=== PATIENT | male | born 1955 | race Caucasian/White ===

== ENCOUNTER 2016-10-06 20:39 | Inpatient (IN) | payer MEDICARE, BC ==
--- NOTE | 2016-10-06 21:33 | ED PDOC ---
Lower Extremity Pain/Injury Time Seen by Provider: 10/06/16 20:51 Chief Complaint (Nursing): Lower Extremity Problem/Injury Chief Complaint (Provider): fall, left foot pain History Per: Patient History/Exam Limitations: no limitations Onset/Duration Of Symptoms: Mins Current Symptoms Are (Timing): Still Present Severity: Moderate Additional History Per: Patient Additional Complaint(s): The pt is a 61yo male, brought to the ED for evaluation s/p falling and injuring his left foot [employer]. Pt reports he stood up too quickly out of a chair and while attempting to grab his walker, he felt light headed and fell on his left side. Pt denies any head trauma or loss of consciousness. reports he took vicodin after the fall and is denying any pain in the ED. Pt currently denying pain medications as well. He offers no additional medical complaints. - Ankle/Foot Description Of Injury: Fell Past Medical History Vital Signs: Last Vital Signs Temp 98.5 F 10/06/16 20:45 Pulse 56 L 10/06/16 20:45 Resp 16 10/06/16 20:45 BP 127/80 10/06/16 20:45 Pulse Ox 97 10/06/16 20:45 - Medical History PMH: Anxiety, Back Problems, Depression, HTN, Hypercholesterolemia - Surgical History Surgical History: Back Surgery - Family History Family History: States: Unknown Family Hx - Home Medications Home Medications: Ambulatory Orders Medication Instructions Recorded Atorvastatin [Lipitor] 20 mg PO DAILY tab 10/11/16 Chlorthalidone [Hygroton] 25 mg PO DAILY tab 10/11/16 Enoxaparin [Lovenox] 40 mg SC DAILY syr 10/11/16 FLUoxetine [Prozac] 20 mg PO 1600 cap 10/11/16 FLUoxetine [Prozac] 40 mg PO DAILY cap 10/11/16 Gabapentin [Neurontin] 800 mg PO 0000,0900,1600 cap 10/11/16 Metoprolol Tartrate [Lopressor] 100 mg PO 1600 tab 10/11/16 Metoprolol Tartrate [Lopressor] 200 mg PO DAILY tab 10/11/16 Mirtazapine [Remeron] 15 mg PO HS tab 10/11/16 Multimineral/Multivitamin 1 tab PO DAILY tab 10/11/16 [Therapeutic-M Tab] Pantoprazole [Protonix EC Tab] 40 mg PO DAILY ect 10/11/16 Valsartan [Diovan] 320 mg PO DAILY tab 10/11/16 amLODIPine [Norvasc] 10 mg PO 0000 tab 10/11/16 buPROPion SR [Wellbutrin] 100 mg PO 0900,1600 t12 10/11/16 cloNIDine [Catapres] 0.1 mg PO 0000,1600 tab 10/11/16 cloNIDine [Catapres] 0.2 mg PO DAILY tab 10/11/16 clonazePAM [Klonopin] 1 mg PO 0000,0900,1600 tab 10/11/16 hydrALAZINE [Apresoline] 50 mg PO 0000 tab 10/11/16 hydrALAZINE [Apresoline] 100 mg PO DAILY tab 10/11/16 oxyCODONE/Acetaminophen [Percocet 1 ea PO Q4 PRN #30 tab 10/11/16 5/325 mg Tab] tiZANidine [Zanaflex] 1 mg PO Q12 PRN tab 10/11/16 - Allergies Allergies/Adverse Reactions: Allergies Allergy/AdvReac Type Severity Reaction Status Date / Time No Known Allergies Allergy Verified 10/11/16 17:09 Review of Systems ROS Statement: Except As Marked, All Systems Reviewed And Found Negative Musculoskeletal: Positive for: Foot Pain (left) Neurological: Negative for: Headache Physical Exam - Reviewed Nursing Documentation Reviewed: Yes Vital Signs Reviewed: Yes - Physical Exam Appears: Positive for: Well, Non-toxic, No Acute Distress Head Exam: Positive for: ATRAUMATIC, NORMAL INSPECTION, NORMOCEPHALIC Skin: Positive for: Normal Color, Warm, DRY Eye Exam: Positive for: Normal appearance Neck: Positive for: Normal, Supple Cardiovascular/Chest: Positive for: Regular Rate, Rhythm Respiratory: Positive for: Normal Breath Sounds. Negative for: Respiratory Distress Pulses-Dorsalis Pedis (L): 2+ Extremity: Positive for: Normal ROM, Other (lt foot sensations intact, moving all toes. Lt foot in traction). Negative for: Deformity - Laboratory Results Result Diagrams: 10/11/16 07:45 10/11/16 07:45 - ECG O2 Sat by Pulse Oximetry: 97 (ra) Pulse Ox Interpretation: Normal - Critical Care Total Time (In Min): 30 Medical Decision Making Medical Decision Making: Time: 2099 Impression: left foot injury s/p fall Plan: -- XR Left foot -- XR left ankle --Reassess Conscious sedation procedure note: Consent obtained. Patient placed on speed operator and CO2 monitor. Code cart at bedside. Given increments of 10mg propofol x3 until adequate sedation achieved. Patient sedated but answering questions throughout procedure. Tolerated procedure well. Repeat vitals obtained. Patient observed for mental status changes. Scribe Attestation: Documented by Isela Oglesby and Philly Valdovinos acting as scribes for Miladys Anthony MD. Provider Attestation: All medical record entries made by the Scribe were at my direction and personally dictated by me. I have reviewed the chart and agree that the record accurately reflects my personal performance of the history, physical exam, medical decision making, and the department course for this patient. I have also personally directed, reviewed, and agree with the discharge instructions and disposition. Disposition - Clinical Impression Clinical Impression: Ankle fracture, Ankle dislocation - Patient ED Disposition Is Patient to be Admitted: Yes - Disposition Disposition Time: 23:42 Condition: STABLE - Pt Status Changed To: Hospital Disposition Of: Observation - POA Present On Arrival: Falls Or Trauma
--- NOTE | 2016-10-06 22:39 | CP.PCM.CON ---
History of Present Illness - History of Present Illness History of Present Illness: PODIATRY PROGRESS NOTE DR. DOMINGUEZ: This is a 61 yo male pt who was brought to ED today s/p fall at home w/ left lower extremity injury. Per patient he says that he tried to stand up from chair with rolling walker and the walker rolled away from him into the coffee table. Pt says he felt weak and light headed and subsequently fell on his left side. Denies head injury or LOC. Was unable to stand up after fall but was able to call for help via phone and subsequently taken to ED by EMS. Says he took a vicodin from home which alleviated the pain. Pt denies any pain or discomfort to the left foot or ankle at this time. Denies numbness or tingling. Of note, per pt he is 2.5 weeks s/p discetomy for herniated discs and has been using the walker post-operatively. Pt also complains of foot drop to the right foot, as well as cramping up and down the right leg. Denies any other problems at this time. PMH: HTN, depression, anxiety, chronic back pain, right sided foot drop ALL: NKDA Meds: see amb orders FH: father (, skin cancer, Hep C); mother (, Alzh. Disease) Surg Hx: 2.5 weeks s/p discectomy, laminectomy (3 years ago), aortic valve surgery, cervical vertebrae fusion (4 yeas ago) Soc. Hx: lives in [place] (on disability), denies ever smoking, denies ETOH, + occasional marijuana use Review of Systems - Review of Systems Review of Systems: All systems reviewed and found to be negative with exception of pertinent HPI findings Past Patient History - Past Medical History & Family History Past Medical History?: Yes - Past Social History Smoking Status: Current Some Days Smoker - CARDIAC Hx Hypercholesterolemia: Yes Hx Hypertension: Yes - MUSCULOSKELETAL/RHEUMATOLOGICAL Hx Falls: Yes Hx Herniated Disk: Yes - PSYCHIATRIC Hx Anxiety: Yes Hx Depression: Yes - SURGICAL HISTORY Other/Comment: laminectomy 2013,herniated disc surgery - ANESTHESIA Hx Anesthesia: Yes Hx Anesthesia Reactions: No Hx Malignant Hyperthermia: No Meds Allergies/Adverse Reactions: Allergies Allergy/AdvReac Type Severity Reaction Status Date / Time No Known Allergies Allergy Verified 05/14/14 23:07 Physical Exam - Constitutional Appears: Non-toxic, No Acute Distress - Extremities Exam Extremities exam: Negative for: calf tenderness Additional comments: Left lower extremity exam: VASC- DP/PT pulses full palpable, skin temp runs warm to cool, cap refill < 3 sec to all digits, moderate non-pitting edema noted diffusely to distal leg, ankle and foot DERM- superficial abrasion (1.0x0.5cm) noted to anterior-medial aspect of ankle joint, no open wounds appreciated, there is ecchymosis evident to the medial malleolus NEURO- grossly intact ORTHO- ankle joint appears dislocated at level of the ankle joint (rearfoot and forefoot are abducted on the leg w/ medial malleolus prominent, pt able to wiggle all toes, pain on AJ DF and ROM is restricted due to edema and guarding, tenderness over medial mal, tenderness over lateral mal diffuse tenderness to dorsum of rearfoot, no other deformities seen - Neurological Exam Neurological exam: Alert, CN II-XII Intact, Oriented x3 - Psychiatric Exam Psychiatric exam: Normal Affect, Normal Mood Results - Vital Signs Recent Vital Signs: Last Vital Signs Temp 98.5 F 10/06/16 20:45 Pulse 56 L 10/06/16 20:45 Resp 16 10/06/16 20:45 BP 127/80 10/06/16 20:45 Pulse Ox 97 10/06/16 21:45 - Labs Result Diagrams: 10/06/16 23:10 10/06/16 23:10 Assessment & Plan - Assessment and Plan (Free Text) Assessment: 61 yo male patient w/ left ankle fracture s/p syncopal episode and fall Plan: -Pt S&E at bedside in ED -D/w attending Dr. Dominguez & ED Dr. Anthony -Addressed all questions and concerns w/ patient -Discussed w/ patient that he will require manipulation of the ankle joint in the ED to prevent neurovascular compromise -Advised pt that will require surgery when soft tissue is optimized -Consent obtained for closed reduction of the left ankle under conscious sedation -Consent for anesthesia obtained per ED. Sedation given per Dr. Anthony (3x 10 mg IV propofol) -Ankle joint manipulated and relocated under sedation and adequate alignment confirmed via plain films -Cast applied to L lower extremity and bivalved with KILEY bandage -Pt tolerated procedure well without incident -Plan for admission (Dr. Dai's service) -Pre-op workup: CBC, BMP, PT/PTT/INR, EKG in ED -Will order CXR for AM -Orthopedics (Dr. Escalante) consulted for back/right leg pain -Cardiology consulted (Dr. Monica Espinoza) for pre-op cardiac clx -Strict NWB, ice behind knee, elevation -Percocet po q4prn -Regular diet -Phys Therap to evaluate in AM -Order in for CT left lower extremity (morning) -Will continue to monitor w/ plan for surgery later this week w/ Dr. Dominguez
[2016-10-06 23:18] LABS: HEMATOCRIT 38.4 % (35.0-51.0); MEAN CORPUSCULAR HEMOGLOBIN 29.5 pg (27.0-31.0); MEAN CORPUSCULAR HGB CONC 33.1 g/dL (33.0-37.0); RED CELL DISTRIBUTION WIDTH 13.8 % (11.5-14.5); WHITE BLOOD COUNT 10.6 K/uL (4.8-10.8)
[2016-10-06] MEDS ORDERED: Propofol 10 mg/ml Inj (20 ML) IV STA (23:24)
[2016-10-06 23:29] LABS: BLOOD UREA NITROGEN 36 mg/dl (9-20); CALCIUM 9.2 mg/dL (8.4-10.2); CARBON DIOXIDE 23 mmol/L (22-30); CHLORIDE 105 mmol/L (98-107); GFR AFRICAN-AMERICAN > 60; GLUCOSE,RANDOM 88 mg/dL (75-110); POTASSIUM 3.9 MMOL/L (3.6-5.0); SODIUM 142 mmol/l (132-148)
[2016-10-06 23:36] LABS: PARTIAL THROMBOPLASTIN TIME 30.6 SECONDS (23.3-32.5)
[2016-10-07] MEDS ORDERED: Oxycodone/Acetaminophen 5/325 mg Tab PO PRN (00:16)
[2016-10-07] MEDS ORDERED: GABAPENTIN 800 MG PO SCH (02:00)
--- NOTE | 2016-10-07 07:28 | CP.PCM.PN ---
Subjective - Date & Time of Evaluation Date of Evaluation: 10/07/16 Time of Evaluation: 13:00 - Subjective Subjective: PODIATRY PROGRESS NOTE DR. DOMINGUEZ: 61 yo male S&E at bedside today for f/u of left ankle fracture. Pt seen resting in bedside chair at time of visit. Appears AAOx3 and appears to be in NAD. Seen sitting upright in bedside chair with left leg elevated. Reports an uneventful overnight. Does complain of some low back and right leg cramping pain but says the pain meds help. Denies any pain or discomfort to the left lower ext today. Denies numbness or tingling. Denies calf pain. Pt is anxious about possible surgery and has many questions. Denies f/n/v/c/sob/cp. Denies any other problems at this time. Objective - Vital Signs/Intake and Output Vital Signs (last 24 hours): Temp Pulse Resp BP Pulse Ox 98.1 F 61 20 160/76 H 100 10/07/16 00:12 10/07/16 02:21 10/07/16 00:12 10/07/16 02:21 10/07/16 00:12 - Medications Medications: Current Medications Amlodipine Besylate (Norvasc) 10 mg PO DAILY [facility] Last Admin: 10/07/16 02:21 Dose: 10 mg Chlorthalidone (Hygroton) 25 mg PO DAILY [facility] Gabapentin (Neurontin) 800 mg PO TID [facility] Last Admin: 10/07/16 02:20 Dose: 800 mg Hydralazine HCl (Apresoline) 50 mg PO TID [facility] Last Admin: 10/07/16 02:21 Dose: 50 mg Oxycodone/Acetaminophen (Percocet 5/325 Mg Tab) 1 tab PO Q4 PRN PRN Reason: Pain, moderate (4-7) Stop: 10/10/16 00:17 Tizanidine HCl (Zanaflex) 1 mg PO Q12 PRN PRN Reason: spasm - Labs Labs: PT 11.4 SECONDS (9.6-11.2) H 10/06/16 23:10 INR 1.10 (0.92-1.08) H 10/06/16 23:10 APTT 30.6 SECONDS (23.3-32.5) 10/06/16 23:10 - Constitutional Appears: Non-toxic, No Acute Distress - Extremities Exam Extremities Exam: absent: Calf Tenderness Additional comments: LLE exam: Cast appears c/d/i to left lower extremity, pt able to wiggle toes freely, capillary refill < 3 sec to all digits x 5 - Neurological Exam Neurological Exam: Alert, Awake, Oriented x3 - Psychiatric Exam Psychiatric exam: Normal Affect, Normal Mood Assessment and Plan - Assessment and Plan (Free Text) Assessment: 61 yo male patient w/ left ankle fracture s/p syncopal episode and fall Plan: -Pt S&E at bedside -Plan discussed in detail w/ attending Dr. Dominguez, DPM -Chart, labs, vitals reviewed -Lower ext. CT: trimalleolar fx of left lower extremity -All questions & concerns addressed w/ patient -Plan for OR @7:45 AM w/ Dr. Dominguez (ORIF L ankle fracture) -Admitted to Dr. Dai, will require medical clearance from primary -Cardiology consult (Dr. Monica Espinoza): awaiting ECHO. Will need cardiac clearance for surgery -Orthopedics consult (Dr. Escalante): awaiting rec's for back/right leg pain -Strict NWB, ice behind knee, elevation -Percocet po q4prn -Physical therapy: recommends gait training w/ rolling walker, TCU -Low extremity arterial duplex, PVR/ANNEMARIE's ordered. will f/u results -CXR ordered -Will continue to follow closely.
--- NOTE | 2016-10-07 07:33 | CARD ---
APPROVED REPORT EKG Measurement Heart [id number] <Conclusion> Sinus bradycardia with 1st degree AV block Incomplete left bundle branch block Prolonged QT Abnormal ECG
[2016-10-07] MEDS ORDERED: ACETAMINOPHEN PO PRN (08:07)
[2016-10-07] MEDS ORDERED: HYDROCODONE PO PRN (08:07)
--- NOTE | 2016-10-07 08:56 | RAD ---
PROCEDURE: Left Ankle Radiographs. HISTORY: Fall COMPARISON: None FINDINGS: BONES: Complex fractures of the distal fibula and tibial. JOINTS: Subluxation primarily of the tibia relative to the talus. Normal. No osteoarthritis. Ankle mortise maintained. Talar dome intact SOFT TISSUES: Soft tissue swelling without acute articular or osseous abnormality. OTHER FINDINGS: None. IMPRESSION: Trimalleolar fractures subluxation left ankle.
--- NOTE | 2016-10-07 08:57 | RAD ---
PROCEDURE: Left Foot Radiographs. HISTORY: Trauma. COMPARISON: None. FINDINGS: BONES: Known fractures of the distal tibia and fibula. JOINTS: Normal. SOFT TISSUES: Focal soft tissue swelling 5th metatarsal phalangeal joint without apparent fracture. This likely represents an incidental non related finding. Degenerative changes, osteopenia noted. OTHER FINDINGS: None. IMPRESSION: No additional fractures in an individual with known trimalleolar fracture. Incidental finding(s): Soft tissue swelling 5th digit distal metatarsal phalangeal joint region. No associated fracture.
[2016-10-07] MEDS ORDERED: DICLOFENAC SODIUM PO SCH (09:00)
[2016-10-07] MEDS ORDERED: MISOPROSTOL PO SCH (09:00)
--- NOTE | 2016-10-07 10:12 | CP.PCM.CON ---
History of Present Illness - History of Present Illness History of Present Illness: Full Note Dictated ?? Accidental Fall/?? Orthostatic Hypotension Blunt injury Lt Ankle/?? Fracture S/P AVR with tissue valve S/P AO root replacement Recent Discectomy/Old lumbar laminectomy Cervical vertibral fusion Sx HTN (On multiple vasodilator) Discussed with his ceo and founder Pt has been stable from cardiac point of view Echo to evaluate AO prosthesis and LV funfction Past Patient History - Past Medical History & Family History Past Medical History?: Yes - Past Social History Smoking Status: Current Some Days Smoker - CARDIAC Hx Hypercholesterolemia: Yes Hx Hypertension: Yes - PULMONARY Hx Respiratory Disorders: No - NEUROLOGICAL Hx Neurological Disorder: No - HEENT Hx HEENT Problems: No - RENAL Hx Chronic Kidney Disease: No - ENDOCRINE/METABOLIC Hx Endocrine Disorders: No - HEMATOLOGICAL/ONCOLOGICAL Hx Blood Disorders: No Hx AIDS: No Hx Human Immunodeficiency Virus (HIV): No - INTEGUMENTARY Hx Dermatological Problems: No - MUSCULOSKELETAL/RHEUMATOLOGICAL Hx Falls: Yes Hx Herniated Disk: Yes - GASTROINTESTINAL Hx Gastrointestinal Disorders: No - GENITOURINARY/GYNECOLOGICAL Hx Genitourinary Disorders: No - PSYCHIATRIC Hx Anxiety: Yes Hx Depression: Yes - SURGICAL HISTORY Other/Comment: laminectomy 2014,herniated disc surgery - ANESTHESIA Hx Anesthesia: Yes Hx Anesthesia Reactions: No Hx Malignant Hyperthermia: No Meds Allergies/Adverse Reactions: Allergies Allergy/AdvReac Type Severity Reaction Status Date / Time No Known Allergies Allergy Verified 05/14/14 23:07 - Medications Medications: Current Medications Amlodipine Besylate (Norvasc) 10 mg PO 0000 [facility] Bupropion HCl (Wellbutrin) 100 mg PO 0900,1600 [facility] Chlorthalidone (Hygroton) 25 mg PO DAILY [facility] Last Admin: 10/07/16 10:02 Dose: 25 mg Clonazepam (Klonopin) 1 mg PO 0000,0900,1600 [facility] Clonidine HCl (Catapres) 0.1 mg PO 0000,1600 [facility] Clonidine HCl (Catapres) 0.2 mg PO DAILY [facility] Fluoxetine HCl (Prozac) 40 mg PO DAILY [facility] Fluoxetine HCl (Prozac) 20 mg PO 1600 [facility] Gabapentin (Neurontin) 800 mg PO 0000,0900,1600 [facility] Last Admin: 10/07/16 10:03 Dose: 800 mg Home Med (Diclofenac Sodium/Misoprostol [Diclofenac-Misoprost 75-0.2 Tb]) 1 mg PO DAILY [facility] Home Med (Rosuvastatin Calcium [Rosuvastatin Calcium]) 10 mg PO DAILY [facility] Hydralazine HCl (Apresoline) 100 mg PO DAILY [facility] Last Admin: 10/07/16 10:01 Dose: 100 mg Hydralazine HCl (Apresoline) 50 mg PO 0000 [facility] Metoprolol Tartrate (Lopressor) 200 mg PO DAILY [facility] Metoprolol Tartrate (Lopressor) 150 mg PO 1600 [facility] Mirtazapine (Remeron) 15 mg PO HS [facility] Oxycodone/Acetaminophen (Percocet 5/325 Mg Tab) 1 tab PO Q4 PRN PRN Reason: Pain, moderate (4-7) Stop: 10/10/16 00:17 Pantoprazole Sodium (Protonix Ec Tab) 40 mg PO DAILY [facility] Tizanidine HCl (Zanaflex) 1 mg PO Q12 PRN PRN Reason: SPASM Valsartan (Diovan) 320 mg PO DAILY [facility] Results - Vital Signs Recent Vital Signs: Last Vital Signs Temp 98.2 F 10/07/16 09:59 Pulse 66 10/07/16 10:01 Resp 19 10/07/16 09:59 BP 130/70 10/07/16 10:01 Pulse Ox 99 10/07/16 09:59 - Labs Result Diagrams: 10/06/16 23:10 10/06/16 23:10
[2016-10-07] MEDS: Pantoprazole 40 mg EC Tab PO SCH (10:32)
--- NOTE | 2016-10-07 10:41 | RAD ---
PROCEDURE: Left Ankle Radiographs. HISTORY: ankle fracture COMPARISON: Left ankle radiographs performed 10/06/16 FINDINGS: Complex comminuted distal fibular and tibial fractures appearing improved alignment postreduction. Soft tissue swelling. No evidence of radiopaque foreign body. IMPRESSION: Complex comminuted distal fibular and tibial fractures appearing improved alignment postreduction. Soft tissue swelling.
--- NOTE | 2016-10-07 10:45 | CON ---
DATE: 10/07/2016 He is hospitalized under Dr. Dai's care in room 654, bed 1. This 61-year-old man came into the hospital after falling when he got out of his chair, leaned on his walker, which slid away from him because it had wheels, causing him to fall. He denies any syncope. He denies lightheadedness prior to the walker sliding away from him. The patient gives a long medi aubrey history which consists of having required aortic valve replacement for severe aortic regurgitatio n as well as replacement of aortic root in 2012. Subsequently, his aortic valve and his left ventric le have been stable as per his asset protection manager, with whom I spoke. The patient also recently underwent diskectomy in the lumbar region for spinal stenosis, resulting in a left sciatica, which has been rel ieved. Three years back, he had undergone laminectomy in the lumbar area as well. He gives history of spinal vertebral fusion more than 4 years back. He has never been a smoker or a diabetic and rhina es any history of myocardial infarction or symptoms of congestive cardiac failure. He has been a sev ere hypertensive and multiple antihypertensives have gradually been added to control his blood pressu re. A number of these are vasodilators including clonidine, hydralazine, amlodipine, and a diuretic in the form of hydrochlorothiazide. The patient denies any palpitations or syncopal episodes in the past, has never experienced symptoms of congestive cardiac failure, had recently started physical the rapy following his diskectomy. PHYSICAL EXAMINATION: GENERAL: Shows a middle-aged, tall man, alert, awake, coherent, afebrile, with a left lower extremit y which is in a soft cast. VITAL SIGNS: His pulse rate was 64 beats per minute, regular, and his blood pressure was 120/70 mmHg lying down. Upon standing up, it was 116/70 mmHg. His jugular venous pressure was not elevated. EXTREMITIES: There was no edema over lower extremities. CHEST: A scar of sternotomy was evident. HEART: The first and second heart sounds were normal. There was a murmur of aortic regurgitation in the left 3rd space. There was no S3 gallop. LUNGS: There were no rales. His electrocardiogram showed sinus rhythm at 54 beats per minute with a WV interval of 226 millisecon ds with a QRS morphology which was [address] changes, probably related to the slightly widened QRS interval. No Q-waves suggestive of myocardial infarction were evident. LABORATORY DATA: Showed a hemoglobin and hematocrit of 12.7 grams and 38.4% respectively. His WBC c ount and platelet counts were within normal limits. His BUN and creatinine were 36 and 1.1 mg %. Hi s electrolytes were normal. IMPRESSION: At this time is closed injury to the left ankle, possibly a fracture, following a fall w hich is probably accidental with possible orthostatic hypotension, though the patient does not displa y any orthostatic changes to his blood pressure during examination, status post aortic valve replacem ent for severe aortic regurgitation as well as aortic root replacement with tissue valve in 2012, cli nical evidence of aortic regurgitation with severe hypertension and multiple vasodilators as antihype rtensives including a diuretic, status post diskectomy, status post laminectomy to relieve recent sci atica syndrome and a history of cervical vertebral fusion 4 years back. I have discussed his case wi th his asset protection manager, who points out that there is nothing unstable about his cardiovascular status. In the meantime, I have requested an echocardiogram to evaluate his aortic prosthesis as well as to e valuate the left ventricle before proceeding with general anesthesia if it is required. Carlos Alberto Espinoza MD cc: 23 TT: 10/07/2016 10:44:42 Confirmation # [id number] Dictation # [id number]
--- NOTE | 2016-10-07 12:00 | CT ---
PROCEDURE: Lower extremity CT scan HISTORY: left ankle fracture COMPARISON: October 06, 2016. Left ankle radiographs new line TECHNIQUE: 2.5 mm axial acquisition and display. Coronal and sagittal reconstructions. Dose report (mGy-cm): 336.44. Supplemental volume rendering three-dimensional images. FINDINGS: Left fibula: Comminuted fracture of the distal fibula at and above the ankle mortise. The major fracture fragments are anatomically aligned comet to minor fracture fragments display a component of angulation, there is no evidence of open distal fibular fracture. Left tibia: Avulsed fracture of the medial malleolus. The fracture fragment however is anatomically aligned. The more medial aspect of the distal tibial fracture is comminuted with an intra-articular component. The major fracture fragments are anatomically aligned. Soft tissue swelling attests to the acuity of the fracture. IMPRESSION: Trimalleolar fractures. No evidence of dislocation or subluxation. The pilon fracture involving the medial aspect of the tibia is comminuted common the major fracture fragments are aligned.
[2016-10-07 12:24] LABS: THYROID STIMULATING HORMONE 1.36 mIU/ML (0.46-4.68)
[2016-10-07 12:55] LABS: TROPONIN I 0.018 ng/mL (0.00-0.120)
--- NOTE | 2016-10-07 16:52 | HP ---
CHIEF COMPLAINT: Pain in left foot. HISTORY OF PRESENT ILLNESS: This is a 61-year-old male who had a fall and after fall, patient alannae d having left foot pain and swelling so patient was brought to Emergency Room and was admitted for fu rther management. The patient did take pain medication at home, which he had and his pain is control led with that. REVIEW OF SYSTEMS: Positive for pain in left foot and fall. Review of systems otherwise is negative for headache, dizziness, syncope, loss of consciousness, chest pain, shortness of breath, nausea, vo miting, diarrhea, constipation. Review of systems of all other organ systems is unremarkable. PAST MEDICAL HISTORY: Significant for hypertension, elevated cholesterol, depression, chronic back p ain and anxiety. PAST SURGICAL HISTORY: Remarkable for back surgery. PERSONAL HISTORY: The patient is currently a nonsmoker, nondrinker, no substance abuse. MEDICATIONS: The patient is on Vicodin, chlorthalidone, Prozac, Prevacid, metoprolol, Remeron, Zocor , Diovan, Norvasc, Wellbutrin, clonidine, clonazepam, hydralazine and Zanaflex. ALLERGIES: The patient is not allergic to any medication. FAMILY HISTORY: Noncontributory. PHYSICAL EXAMINATION: GENERAL: Well-built, well-nourished 61-year-old male in no acute distress. VITAL SIGNS: Temperature afebrile, pulse 71, respirations 18, blood pressure 132/89. HEENT: Pupils reacting to light. NECK: No JVD, no thyromegaly, no lymphadenopathy, no nystagmus. HEAD: Normocephalic, atraumatic skull. HEART: S1, S2 normal, regular. No significant murmur, gallop or rub is heard. LUNGS: Shows good bilateral air entry. No rales or rhonchi. ABDOMEN: Soft, nontender, no organomegaly, no fluid. Bowel sounds are plus. EXTREMITIES: Left lower extremity is under surgical podiatry dressing. No sign of distal neurovascu lar compromise. No edema, no calf swelling, no tenderness. No acute ischemia. CENTRAL NERVOUS SYSTEM: Essentially unchanged. DIAGNOSTIC DATA: Available diagnostic data reviewed. TSH level is 1.36. Troponin level, 2 sets are negative. Vitamin B12 level is 729. PT 11.4, PTT 30.6. Sodium 142, potassium 3.2, chloride 105, b icarb. Ankle x-ray shows fracture of ankle. EKG does not reveal any acute ST-T changes. CAT scan o f lower extremities shows trimalleolar fracture. ADMITTING IMPRESSION: Left foot ankle fracture, hypertension, chronic back pain, elevated cholestero l, dyspepsia, depression. PLAN: As ordered. Case and plan discussed with patient. Kieran Dai MD cc: [id number] TT: 10/07/2016 16:51:41 sn
[2016-10-08 07:28] LABS: ALB/GLOB RATIO 1.2 (1.0-2.1); ALKALINE PHOSPHATASE 68 U/L (38-126); ALT/SGPT 44 U/L (21-72); AST/SGOT 31 U/L (17-59); BILIRUBIN,TOTAL 0.8 mg/dl (0.2-1.3); BLOOD UREA NITROGEN 19 mg/dl (9-20); CALCIUM 9.2 mg/dL (8.4-10.2); CARBON DIOXIDE 26 mmol/L (22-30); CHLORIDE 104 mmol/L (98-107); GFR AFRICAN-AMERICAN > 60; GLUCOSE,RANDOM 97 mg/dL (75-110); HEMATOCRIT 37.5 % (35.0-51.0); MEAN CELL VOLUME 87.3 fl (80.0-94.0); MEAN CORPUSCULAR HGB CONC 34.4 g/dL (33.0-37.0); POTASSIUM 3.5 MMOL/L (3.6-5.0); RED CELL DISTRIBUTION WIDTH 13.9 % (11.5-14.5); SODIUM 143 mmol/l (132-148); TOTAL PROTEIN 6.7 G/DL (6.3-8.2); WHITE BLOOD COUNT 10.7 K/uL (4.8-10.8)
--- NOTE | 2016-10-08 08:13 | CP.PCM.PN ---
Subjective - Date & Time of Evaluation Date of Evaluation: 10/08/16 Time of Evaluation: 07:45 - Subjective Subjective: PODIATRY PROGRESS NOTE DR. DOMINUGEZ: 61 yo male S&E at bedside today w/ Dr. Dominguez present for f/u of left ankle fracture. Pt seen resting comfortably in bed at time of visit with the left leg elevated on 2 pillows. Pt denies any acute events overnight, says he still has lower back pain but pain medications are helping. Also complains of some left knee swelling that he has had since the fall on Friday, however he denies any pain to the knee and says swelling is better. Denies any numbness, or tingling to the left lower extremity, denies any pain unless he moves the leg around. Denies any other problems at this time. Objective - Vital Signs/Intake and Output Vital Signs (last 24 hours): Temp Pulse Resp BP Pulse Ox 99.4 F 65 20 122/63 95 10/08/16 07:54 10/08/16 07:54 10/08/16 07:54 10/08/16 07:54 10/08/16 07:54 - Medications Medications: Current Medications Amlodipine Besylate (Norvasc) 10 mg PO 0000 [facility] Last Admin: 10/08/16 00:15 Dose: 10 mg Atorvastatin Calcium (Lipitor) 20 mg PO DAILY [facility] Last Admin: 10/07/16 12:35 Dose: 20 mg Bupropion HCl (Wellbutrin) 100 mg PO 0900,1600 [facility] Last Admin: 10/07/16 18:28 Dose: 100 mg Chlorthalidone (Hygroton) 25 mg PO DAILY [facility] Last Admin: 10/07/16 10:02 Dose: 25 mg Clonazepam (Klonopin) 1 mg PO 0000,0900,1600 [facility] Last Admin: 10/08/16 00:16 Dose: 1 mg Clonidine HCl (Catapres) 0.1 mg PO 0000,1600 [facility] Last Admin: 10/08/16 00:15 Dose: Not Given Clonidine HCl (Catapres) 0.2 mg PO DAILY [facility] Last Admin: 10/07/16 11:00 Dose: 0.2 mg Fluoxetine HCl (Prozac) 40 mg PO DAILY [facility] Fluoxetine HCl (Prozac) 20 mg PO 1600 [facility] Last Admin: 10/07/16 16:24 Dose: 20 mg Gabapentin (Neurontin) 800 mg PO 0000,0900,1600 [facility] Last Admin: 10/08/16 00:16 Dose: 800 mg Home Med (Diclofenac Sodium/Misoprostol [Diclofenac-Misoprost 75-0.2 Tb]) 1 mg PO DAILY [facility] Hydralazine HCl (Apresoline) 100 mg PO DAILY [facility] Last Admin: 10/07/16 10:01 Dose: 100 mg Hydralazine HCl (Apresoline) 50 mg PO 0000 [facility] Last Admin: 10/08/16 00:16 Dose: Not Given Metoprolol Tartrate (Lopressor) 200 mg PO DAILY [facility] Last Admin: 10/07/16 10:58 Dose: 200 mg Metoprolol Tartrate (Lopressor) 150 mg PO 1600 [facility] Last Admin: 10/07/16 16:33 Dose: 150 mg Mirtazapine (Remeron) 15 mg PO HS [facility] Last Admin: 10/07/16 21:00 Dose: 15 mg Oxycodone/Acetaminophen (Percocet 5/325 Mg Tab) 1 tab PO Q4 PRN PRN Reason: Pain, moderate (4-7) Stop: 10/10/16 00:17 Last Admin: 10/07/16 12:42 Dose: 1 tab Pantoprazole Sodium (Protonix Ec Tab) 40 mg PO DAILY [facility] Last Admin: 10/07/16 10:32 Dose: 40 mg Tizanidine HCl (Zanaflex) 1 mg PO Q12 PRN PRN Reason: SPASM Valsartan (Diovan) 320 mg PO DAILY [facility] Last Admin: 10/07/16 11:00 Dose: 320 mg - Labs Labs: 10/08/16 06:10 10/08/16 06:10 PT 11.4 SECONDS (9.6-11.2) H 10/06/16 23:10 INR 1.10 (0.92-1.08) H 10/06/16 23:10 APTT 30.6 SECONDS (23.3-32.5) 10/06/16 23:10 - Constitutional Appears: Non-toxic, No Acute Distress - Extremities Exam Extremities Exam: absent: Calf Tenderness Additional comments: LLE exam: Cast appears c/d/i to left lower extremity, pt able to wiggle toes freely, capillary refill < 3 sec to all digits x 5 - Neurological Exam Neurological Exam: Alert, Awake, Oriented x3 - Psychiatric Exam Psychiatric exam: Normal Affect, Normal Mood Assessment and Plan - Assessment and Plan (Free Text) Assessment: 61 yo male patient w/ left ankle fracture 2 days s/p closed reduction in ED Plan: -Pt S&E at bedside w/ Dr. Dominguez present -Chart, labs, vitals reviewed. -All questions and concerned addressed w/ patient in detail -Plan for OR @ 7:45 AM w/ Dr. Dominguez (ORIF L ankle fx) -Admitted to Dr. Dai, will require medical clearance from primary -Cleared per cardiology (Dr. Monica Espinoza) for surgery. Rec's appreciated -Awaiting orthopedic consult recommendations (Dr. Escalante): will require ortho clearance (recent back surgery) prior to ankle surgery -Strict NWB, ice behind knee, elevation (advised patient and nurse to keep foot at heart level, extra pillows added) -Percocet po q4prn for pain -Physical therapy: recommends gait training w/ rolling walker, TCU -Low extremity arterial duplex, PVR/ANNEMARIE's ordered. will f/u results -Will continue to follow closely.
[2016-10-08] MEDS: Pantoprazole 40 mg EC Tab PO SCH (08:40)
--- NOTE | 2016-10-08 08:57 | CP.PCM.PN ---
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 reference to a metallic AV prosthesis, probably an error) Vital signs stable Pt may proceed with the planned surgery Objective - Vital Signs/Intake and Output Vital Signs (last 24 hours): Temp Pulse Resp BP Pulse Ox 99.4 F 65 20 122/63 95 10/08/16 07:54 10/08/16 07:54 10/08/16 07:54 10/08/16 07:54 10/08/16 07:54 - Medications Medications: Current Medications Amlodipine Besylate (Norvasc) 10 mg PO 0000 [facility] Last Admin: 10/08/16 00:15 Dose: 10 mg Atorvastatin Calcium (Lipitor) 20 mg PO DAILY [facility] Last Admin: 10/08/16 08:40 Dose: 20 mg Bupropion HCl (Wellbutrin) 100 mg PO 0900,1600 [facility] Last Admin: 10/08/16 08:38 Dose: 100 mg Chlorthalidone (Hygroton) 25 mg PO DAILY [facility] Last Admin: 10/08/16 08:42 Dose: 25 mg Clonazepam (Klonopin) 1 mg PO 0000,0900,1600 [facility] Last Admin: 10/08/16 08:38 Dose: 1 mg Clonidine HCl (Catapres) 0.1 mg PO 0000,1600 [facility] Last Admin: 10/08/16 00:15 Dose: Not Given Clonidine HCl (Catapres) 0.2 mg PO DAILY [facility] Last Admin: 10/08/16 08:39 Dose: 0.2 mg Fluoxetine HCl (Prozac) 40 mg PO DAILY [facility] Last Admin: 10/08/16 08:40 Dose: 40 mg Fluoxetine HCl (Prozac) 20 mg PO 1600 [facility] Last Admin: 10/07/16 16:24 Dose: 20 mg Gabapentin (Neurontin) 800 mg PO 0000,0900,1600 [facility] Last Admin: 10/08/16 08:39 Dose: 800 mg Home Med (Diclofenac Sodium/Misoprostol [Diclofenac-Misoprost 75-0.2 Tb]) 1 mg PO DAILY [facility] Hydralazine HCl (Apresoline) 100 mg PO DAILY [facility] Last Admin: 10/08/16 08:39 Dose: 100 mg Hydralazine HCl (Apresoline) 50 mg PO 0000 [facility] Last Admin: 10/08/16 00:16 Dose: Not Given Metoprolol Tartrate (Lopressor) 200 mg PO DAILY [facility] Last Admin: 10/08/16 08:41 Dose: 200 mg Metoprolol Tartrate (Lopressor) 150 mg PO 1600 [facility] Last Admin: 10/07/16 16:33 Dose: 150 mg Mirtazapine (Remeron) 15 mg PO HS [facility] Last Admin: 10/07/16 21:00 Dose: 15 mg Oxycodone/Acetaminophen (Percocet 5/325 Mg Tab) 1 tab PO Q4 PRN PRN Reason: Pain, moderate (4-7) Stop: 10/10/16 00:17 Last Admin: 10/07/16 12:42 Dose: 1 tab Pantoprazole Sodium (Protonix Ec Tab) 40 mg PO DAILY [facility] Last Admin: 10/08/16 08:40 Dose: 40 mg Tizanidine HCl (Zanaflex) 1 mg PO Q12 PRN PRN Reason: SPASM Valsartan (Diovan) 320 mg PO DAILY [facility] Last Admin: 10/08/16 08:38 Dose: 320 mg - Labs Labs: 10/08/16 06:10 10/08/16 06:10 PT 11.4 SECONDS (9.6-11.2) H 10/06/16 23:10 INR 1.10 (0.92-1.08) H 10/06/16 23:10 APTT 30.6 SECONDS (23.3-32.5) 10/06/16 23:10
--- NOTE | 2016-10-08 08:58 | RAD ---
HISTORY: Pre-op clearance COMPARISON: No prior. TECHNIQUE: Chest PA and lateral FINDINGS: LUNGS: No evidence of focal infiltrate or consolidation in the lungs. PLEURA: No significant pleural effusion identified. No pneumothorax apparent. CARDIOVASCULAR: The patient is status post sternotomy. There is metallic valve in the heart. OSSEOUS STRUCTURES: No significant abnormalities. VISUALIZED UPPER ABDOMEN: Normal. OTHER FINDINGS: None. IMPRESSION: No radiographic evidence of acute pulmonary disease. Status post sternotomy and placement of cardia metallic valve.
--- NOTE | 2016-10-08 09:49 | US ---
PROCEDURE: Duplex ultrasound of the left lower extremity arteries. HISTORY: evaluate pedal flow. History of trimalleolar fractures. COMPARISON: None available. TECHNIQUE: Grayscale and duplex Doppler evaluation of the left common femoral, superficial femoral, popliteal, posterior tibial and dorsalis pedis arteries was performed.. FINDINGS: COMMON FEMORAL ARTERY: Patent. Maximal flow velocity of 46.3 cm/s. SUPERFICIAL FEMORAL ARTERY:Patent. Maximal flow velocity of 49.5 cm/s. POPLITEAL ARTERY:Patent. Maximal flow velocity of 48.7 cm/s. POSTERIOR TIBIAL ARTERY: Cannot evaluate the arterial system [id number] due to presence of cast DORSALIS PEDIS ARTERY: Cannot evaluate the dorsalis pedis artery as the lying and ankle are in cast. OTHER FINDINGS: None. IMPRESSION: Cannot evaluate the distal leg and left foot arteries as the left ankle and foot are in cast. No evidence of significant stenosis in the arteries above the left knee.
--- NOTE | 2016-10-08 12:26 | CP.PCM.PN ---
<Geneva Fernandez - Last Filed: 10/08/16 21:14> Subjective - Date & Time of Evaluation Date of Evaluation: 10/08/16 Time of Evaluation: 08:45 - Subjective Subjective: 61M seen and examined at bedside with attending. Pt reports his pain in the LLE is currently well-controlled and denies any SOB, chest pain. Otherwise no acute complaints. Objective - Vital Signs/Intake and Output Vital Signs (last 24 hours): Temp Pulse Resp BP Pulse Ox 37.4 C 65 20 122/63 95 10/08/16 07:54 10/08/16 07:54 10/08/16 07:54 10/08/16 07:54 10/08/16 07:54 - Medications Medications: Current Medications Amlodipine Besylate (Norvasc) 10 mg PO 0000 [facility] Last Admin: 10/08/16 00:15 Dose: 10 mg Atorvastatin Calcium (Lipitor) 20 mg PO DAILY [facility] Last Admin: 10/08/16 08:40 Dose: 20 mg Bupropion HCl (Wellbutrin) 100 mg PO 0900,1600 [facility] Last Admin: 10/08/16 08:38 Dose: 100 mg Chlorthalidone (Hygroton) 25 mg PO DAILY [facility] Last Admin: 10/08/16 08:42 Dose: 25 mg Clonazepam (Klonopin) 1 mg PO 0000,0900,1600 [facility] Last Admin: 10/08/16 08:38 Dose: 1 mg Clonidine HCl (Catapres) 0.1 mg PO 0000,1600 [facility] Last Admin: 10/08/16 00:15 Dose: Not Given Clonidine HCl (Catapres) 0.2 mg PO DAILY [facility] Last Admin: 10/08/16 08:39 Dose: 0.2 mg Enoxaparin Sodium (Lovenox) 40 mg SC DAILY [facility] PRN Reason: Protocol Fluoxetine HCl (Prozac) 40 mg PO DAILY [facility] Last Admin: 10/08/16 08:40 Dose: 40 mg Fluoxetine HCl (Prozac) 20 mg PO 1600 [facility] Last Admin: 10/07/16 16:24 Dose: 20 mg Gabapentin (Neurontin) 800 mg PO 0000,0900,1600 [facility] Last Admin: 10/08/16 08:39 Dose: 800 mg Home Med (Diclofenac Sodium/Misoprostol [Diclofenac-Misoprost 75-0.2 Tb]) 1 mg PO DAILY [facility] Hydralazine HCl (Apresoline) 100 mg PO DAILY [facility] Last Admin: 10/08/16 08:39 Dose: 100 mg Hydralazine HCl (Apresoline) 50 mg PO 0000 [facility] Last Admin: 10/08/16 00:16 Dose: Not Given Metoprolol Tartrate (Lopressor) 200 mg PO DAILY [facility] Last Admin: 10/08/16 08:41 Dose: 200 mg Metoprolol Tartrate (Lopressor) 150 mg PO 1600 [facility] Last Admin: 10/07/16 16:33 Dose: 150 mg Mirtazapine (Remeron) 15 mg PO HS [facility] Last Admin: 10/07/16 21:00 Dose: 15 mg Oxycodone/Acetaminophen (Percocet 5/325 Mg Tab) 1 tab PO Q4 PRN PRN Reason: Pain, moderate (4-7) Stop: 10/10/16 00:17 Last Admin: 10/07/16 12:42 Dose: 1 tab Pantoprazole Sodium (Protonix Ec Tab) 40 mg PO DAILY [facility] Last Admin: 10/08/16 08:40 Dose: 40 mg Tizanidine HCl (Zanaflex) 1 mg PO Q12 PRN PRN Reason: SPASM Valsartan (Diovan) 320 mg PO DAILY [facility] Last Admin: 10/08/16 08:38 Dose: 320 mg - Labs Labs: 10/08/16 06:10 10/08/16 06:10 PT 11.4 SECONDS (9.6-11.2) H 10/06/16 23:10 INR 1.10 (0.92-1.08) H 10/06/16 23:10 APTT 30.6 SECONDS (23.3-32.5) 10/06/16 23:10 - Constitutional Appears: Well, Non-toxic, No Acute Distress - Head Exam Head Exam: ATRAUMATIC, NORMAL INSPECTION - Eye Exam Eye Exam: EOMI, PERRL - ENT Exam ENT Exam: Mucous Membranes Moist, Normal Exam - Neck Exam Neck Exam: Normal Inspection. absent: Full ROM (Prior cervical fusion) - Respiratory Exam Respiratory Exam: Clear to Ausculation Bilateral, NORMAL BREATHING PATTERN. absent: Rales, Rhonchi, Wheezes - Cardiovascular Exam Cardiovascular Exam: REGULAR RHYTHM. absent: JVD - GI/Abdominal Exam GI & Abdominal Exam: Soft, Normal Bowel Sounds. absent: Tenderness - Extremities Exam Extremities Exam: Normal Capillary Refill (LEFT DP palpable). absent: Normal Inspection (LLE has splint with ha wrap from toes to proximal tibia) Additional comments: LEFT knee with ballotable fluid collection at lateral suprapatellar - Neurological Exam Neurological Exam: Alert, Awake - Psychiatric Exam Psychiatric exam: Anxious, Normal Mood - Skin Skin Exam: Dry, Normal Color Assessment and Plan (1) Trimalleolar fracture of left ankle Assessment & Plan: Reduced in ED and plan for surgery @ 07, currently stable with splint. - Cardiology Consult (Dr Espinoza) appreciated: Echocardiogram prior to surgery - Neurology Consult (Dr Noriega) appreciated: - Orthopedic Consult (Dr Johnson) appreciated: MRI, ?aspiration of LEFT knee fluid - Pain management - PT/OT - Ice, elevation Status: Acute (2) DVT prophylaxis Assessment & Plan: Lovenox 40mg, SC, Daily Status: Acute (3) HTN (hypertension) Assessment & Plan: Chronic, controlled - Clonidine - Lopressor - Norvasc - Chlorthalidone - Valsartan - Hydralazine Status: Chronic (4) Chronic lower back pain Assessment & Plan: - Diclofenac - Gabapentin Status: Chronic (5) Psychiatric disorder Assessment & Plan: Chronic, controlled. - Wellbutrin - Klonopin - Fluoxetine - Remeron Status: Chronic <Dai,Kieran K - Last Filed: 10/18/16 18:17> Objective - Vital Signs/Intake and Output Vital Signs (last 24 hours): Temp Pulse Resp BP Pulse Ox 98.8 F 65 20 138/87 97 10/11/16 16:59 10/11/16 16:59 10/11/16 16:59 10/11/16 16:59 10/12/16 10:50 - Labs Labs: 10/11/16 07:45 10/11/16 07:45 PT 11.6 SECONDS (9.6-11.2) H 10/10/16 05:40 INR 1.12 (0.92-1.08) H 10/10/16 05:40 APTT 30.6 SECONDS (23.3-32.5) 10/06/16 23:10 Assessment and Plan - Assessment and Plan (Free Text) Assessment: Patient was personally seen and examined by me in rounds with residents. Available labs and diagnostic data reviewed. Case, Patient's condition and management plan discussed with residents in rounds. Agree with resident's documentation. Plan: As ordered. Kieran Dai MD
--- NOTE | 2016-10-08 14:47 | RAD ---
PROCEDURE: Radiographs of the Lumbar Spine. HISTORY: s/p fall; recent discectomy COMPARISON: No prior. FINDINGS: BONES: No radiographic evidence of acute fracture or subluxation. DISC SPACES: Severe degenerative changes at the lower lumbar spine more prominent at L4-L5 and L5-S1 associated with severe narrowing of the disc spaces and marginal osteophyte formation. OTHER FINDINGS: None. IMPRESSION: No radiographic evidence of acute fracture or subluxation. Severe degenerative changes at the lower spine.
--- NOTE | 2016-10-08 16:02 | CP.PCM.CON ---
History of Present Illness - History of Present Illness History of Present Illness: Mr. Cifuentes is a 61-year-old man with a past medical history of depression, anxiety, neuropathy, hypertension and dyslipidemia, who recently suffered a fracture of his left fibula and tibia after a fall that resulted after he stood up from a seated position. He states that he is on several anti-hypertensive agents and he often has light-headedness and feels that he may "pass out" when his blood pressure is in the low 100's, high 90's systolic range. This time, the patient had stood up and felt light-headed and tried to grasp for his walker , which he uses for support after recent disk hernia surgery, but the walker slipped and was projected to the opposite direction, causing the patient to fall. He has good recollection of the entire event and did not have a loss of consciousness. There were no abnormal movements, he does not have headache, nausea, chest pain, weakness, sensory changes or abdominal pain. Review of Systems - Review of Systems All systems: reviewed and no additional remarkable complaints except Past Patient History - Past Medical History & Family History Past Medical History?: Yes - Past Social History Smoking Status: Current Some Days Smoker - CARDIAC Hx Hypercholesterolemia: Yes Hx Hypertension: Yes - PULMONARY Hx Respiratory Disorders: No - NEUROLOGICAL Hx Neurological Disorder: No - HEENT Hx HEENT Problems: No - RENAL Hx Chronic Kidney Disease: No - ENDOCRINE/METABOLIC Hx Endocrine Disorders: No - HEMATOLOGICAL/ONCOLOGICAL Hx Blood Disorders: No Hx AIDS: No Hx Human Immunodeficiency Virus (HIV): No - INTEGUMENTARY Hx Dermatological Problems: No - MUSCULOSKELETAL/RHEUMATOLOGICAL Hx Falls: Yes Hx Herniated Disk: Yes - GASTROINTESTINAL Hx Gastrointestinal Disorders: No - GENITOURINARY/GYNECOLOGICAL Hx Genitourinary Disorders: No - PSYCHIATRIC Hx Anxiety: Yes Hx Depression: Yes - SURGICAL HISTORY Other/Comment: laminectomy 2014,herniated disc surgery - ANESTHESIA Hx Anesthesia: Yes Hx Anesthesia Reactions: No Hx Malignant Hyperthermia: No Meds Allergies/Adverse Reactions: Allergies Allergy/AdvReac Type Severity Reaction Status Date / Time No Known Allergies Allergy Verified 05/14/14 23:07 - Medications Medications: Current Medications Amlodipine Besylate (Norvasc) 10 mg PO 0000 [facility] Last Admin: 10/08/16 00:15 Dose: 10 mg Atorvastatin Calcium (Lipitor) 20 mg PO DAILY [facility] Last Admin: 10/08/16 08:40 Dose: 20 mg Bupivacaine HCl (Marcaine 0.5% Pf (10 Ml)) 10 ml IJ ONCE ONE Stop: 10/09/16 13:05 Bupropion HCl (Wellbutrin) 100 mg PO 0900,1600 [facility] Last Admin: 10/08/16 08:38 Dose: 100 mg Chlorthalidone (Hygroton) 25 mg PO DAILY [facility] Last Admin: 10/08/16 08:42 Dose: 25 mg Clonazepam (Klonopin) 1 mg PO 0000,0900,1600 [facility] Last Admin: 10/08/16 08:38 Dose: 1 mg Clonidine HCl (Catapres) 0.1 mg PO 0000,1600 [facility] Last Admin: 10/08/16 00:15 Dose: Not Given Clonidine HCl (Catapres) 0.2 mg PO DAILY [facility] Last Admin: 10/08/16 08:39 Dose: 0.2 mg Enoxaparin Sodium (Lovenox) 40 mg SC DAILY [facility] PRN Reason: Protocol Fluoxetine HCl (Prozac) 40 mg PO DAILY [facility] Last Admin: 10/08/16 08:40 Dose: 40 mg Fluoxetine HCl (Prozac) 20 mg PO 1600 [facility] Last Admin: 10/07/16 16:24 Dose: 20 mg Gabapentin (Neurontin) 800 mg PO 0000,0900,1600 [facility] Last Admin: 10/08/16 08:39 Dose: 800 mg Home Med (Diclofenac Sodium/Misoprostol [Diclofenac-Misoprost 75-0.2 Tb]) 1 mg PO DAILY [facility] Hydralazine HCl (Apresoline) 100 mg PO DAILY [facility] Last Admin: 10/08/16 08:39 Dose: 100 mg Hydralazine HCl (Apresoline) 50 mg PO 0000 [facility] Last Admin: 10/08/16 00:16 Dose: Not Given Ketorolac Tromethamine (Toradol) 30 mg IVP Q6 PRN PRN Reason: Pain, moderate (4-7) Lidocaine HCl (Lidocaine Hcl 1% Pf 5ml) 10 ml INJ ONCE ONE Stop: 10/09/16 13:05 Methylprednisolone Acetate (Depo-Medrol) 80 mg IM ONCE ONE Stop: 10/09/16 13:05 Metoprolol Tartrate (Lopressor) 200 mg PO DAILY [facility] Last Admin: 10/08/16 08:41 Dose: 200 mg Metoprolol Tartrate (Lopressor) 150 mg PO 1600 [facility] Last Admin: 10/07/16 16:33 Dose: 150 mg Mirtazapine (Remeron) 15 mg PO HS [facility] Last Admin: 10/07/16 21:00 Dose: 15 mg Pantoprazole Sodium (Protonix Ec Tab) 40 mg PO DAILY [facility] Last Admin: 10/08/16 08:40 Dose: 40 mg Potassium Chloride (K-Dur 20 Meq Er Tab) 20 meq PO ONCE ONE Stop: 10/09/16 13:16 Tizanidine HCl (Zanaflex) 1 mg PO Q12 PRN PRN Reason: SPASM Valsartan (Diovan) 320 mg PO DAILY [facility] Last Admin: 10/08/16 08:38 Dose: 320 mg Physical Exam - Constitutional Appears: Well - Head Exam Head Exam: ATRAUMATIC, NORMAL INSPECTION, NORMOCEPHALIC - Eye Exam Eye Exam: EOMI, Normal appearance, PERRL - ENT Exam ENT Exam: Mucous Membranes Moist, Normal Exam - Neck Exam Neck exam: Positive for: Normal Inspection - Respiratory Exam Respiratory Exam: Clear to Auscultation Bilateral, NORMAL BREATHING PATTERN - Cardiovascular Exam Cardiovascular Exam: REGULAR RHYTHM - GI/Abdominal Exam GI & Abdominal Exam: Normal Bowel Sounds, Soft. absent: Tenderness - Extremities Exam Additional comments: left lower extremity is in a cast - Back Exam Back exam: NORMAL INSPECTION - Neurological Exam Neurological exam: Alert, CN II-XII Intact, Oriented x3, Reflexes Normal Additional comments: Gait was not assessed since the patient recently underwent reduction of the fracture of the left ankle. - Expanded Neurological Exam Expanded Patient oriented to: person, place, time Cranial nerves: EOM's Intact: Normal, Facial Sensation: Normal, Gag Reflex: Normal Cerebellar Function: Finger to Nose: Normal, Heel to Macdonald: Normal, Romberg: Normal Upper motor neuron: Babinski Sign: Normal, Pronator Drift: Normal Sensory exam: Lower Extremity 2 Point Discrimination: Normal (left leg not tested), Lower Extremity Light Touch: Normal (left leg not tested), Lower Extremity Pin Prick: Normal (left leg not tested), Lower Extremity Temperature: Normal (left leg not tested), Upper Extremity 2 Point Discrimination: Normal, Upper Extremity Light Touch: Normal, Upper Extremity Pin Prick: Normal, Upper Extremity Temperature: Normal Neuro motor strength exam: Left Upper Extremity: 5, Right Upper Extremity: 5, Left Lower Extremity: 5 (proximally tested), Right Lower Extremity: 5 DTR: Achilles Tendon Right: 2+, Bicep Left: 2+, Bicep Right: 2+, Brachioradialis Left: 2+, Brachioradialis Right: 2+, Patellar Right: 2+, Tricep Left: 2+, Tricep Right: 2+ Results - Vital Signs Recent Vital Signs: Last Vital Signs Temp 99.4 F 10/08/16 07:54 Pulse 65 10/08/16 07:54 Resp 20 10/08/16 07:54 BP 122/63 10/08/16 07:54 Pulse Ox 95 10/08/16 07:54 - Labs Result Diagrams: 10/08/16 06:10 10/08/16 06:10 Labs: Laboratory Results - last 24 hr 10/07/16 10/08/16 10/08/16 21:15 06:10 06:10 WBC 10.7 RBC 4.29 L Hgb 12.9 Hct 37.5 MCV 87.3 MCH 30.0 MCHC 34.4 RDW 13.9 Plt Count 154 Sodium 143 Potassium 3.5 L Chloride 104 Carbon Dioxide 26 Anion Gap 17 BUN 19 Creatinine 0.9 Est GFR ( Amer) > 60 Est GFR (Non-Af Amer) > 60 Random Glucose 97 Calcium 9.2 Total Bilirubin 0.8 AST 31 ALT 44 Alkaline Phosphatase 68 Troponin I 0.0130 Total Protein 6.7 Albumin 3.6 Globulin 3.0 Albumin/Globulin Ratio 1.2 Assessment & Plan (1) Vasovagal near syncope Assessment and Plan: The patient should be well hydrated to avoid decreased cerebral perfusion. Telemetry is recommended to rule out dysrrhythmia. Adjust BP medications per cardiology. DVT Px, PT/OT. Thank you for this consultation. Status: Acute
--- NOTE | 2016-10-08 16:50 | RAD ---
PROCEDURE: Left Knee Radiographs. HISTORY: COMPARISON: None available. FINDINGS: BONES: No acute displaced fracture. Degenerative changes including tenting of the intercondylar notch. JOINTS: No dislocation. Lateral compartment joint space narrowing. JOINT EFFUSION: Moderate suprapatellar joint effusion. OTHER FINDINGS: None. IMPRESSION: Moderate suprapatellar joint effusion. No acute displaced fracture or dislocation identified. If high clinical index of suspicion persists for occult fracture, recommend CT for further evaluation. Degenerative changes.
[2016-10-08] MEDS: Enoxaparin 40 mg Syringe SC SCH (16:58)
--- NOTE | 2016-10-08 21:08 | MRI ---
MRI left knee History: Left knee joint effusion. Pain. Status post fall. Comparison: None available. Technique: Multi-echo multiplanar sequences were performed through the left knee without the use of intravenous contrast. Findings: Complete rupture of the anterior cruciate ligament. Prominent bone bruising and or subchondral fracturing of the mid lateral femoral condyle at the articular surface as well as the posterior lateral proximal tibial plateau and posteromedial proximal tibial plateau. Additional curvilinear fracture deformity at the level of the fibular head. Prominent signal abnormality seen within the posterior lateral corner of the knee concerning for a posterior-lateral corner injury. This includes a fracture deformity of the posterior lateral proximal tibia as well as a fracture deformity of the proximal fibula. In addition, there is a high grade strain versus partial tear of the distal attachment of the biceps femoris tendon as well as the distal attachment of the fibular collateral ligament. Signal abnormality is also noted at the insertion of the popliteus tendon and likely arcuate ligament. Prominent osteochondral lesion with overlying cartilage fibrillation and loss measuring 1.7 centimeters at the mid to posterior medial femoral condyle at the articular surface. Posterior cruciate ligament is preserved. Blunting of the tip of the body and posterior horn of the medial meniscus suggestive for a tear. Linear increased signal noted at the junction of the body and posterior horn of the lateral meniscus concerning for a possible tear. High-grade sprain versus partial tear of the medial collateral ligament. Quadriceps tendon is preserved. Patellar tendon is preserved. Prominent cartilage thinning and loss overlying the lateral patellar facet extending to the subchondral bone with signal change in the adjacent marrow suggestive for osteochondral change. High-grade strain versus partial tearing of the medial and lateral patellar retinaculum. Cartilage thinning and loss involving the medial and lateral compartments of the femorotibial joint space. Large suprapatellar joint effusion with associated synovial debris and hypertrophy. Suggestion of a possible small layering hemarthrosis. Moderate posterior Pérez's cyst. Impression: 1. Complete rupture of the anterior cruciate ligament. 2. Prominent bone bruising and or subchondral fracturing of the mid lateral femoral condyle at the articular surface as well as the posterior lateral proximal tibial plateau and posteromedial proximal tibial plateau. Additional curvilinear fracture deformity at the level of the fibular head. 3. Prominent signal abnormality seen within the posterior lateral corner of the knee concerning for a posterior-lateral corner injury. This includes a fracture deformity of the posterior lateral proximal tibia as well as a fracture deformity of the proximal fibula. In addition, there is a high grade strain versus partial tear of the distal attachment of the biceps femoris tendon as well as the distal attachment of the fibular collateral ligament. Signal abnormality is also noted at the insertion of the popliteus tendon and likely arcuate ligament. 4. Prominent osteochondral lesion with overlying cartilage fibrillation and loss measuring 1.7 centimeters at the mid to posterior medial femoral condyle at the articular surface. 5. Blunting of the tip of the body and posterior horn of the medial meniscus suggestive for a tear. 6. Linear increased signal noted at the junction of the body and posterior horn of the lateral meniscus concerning for a possible tear. 7. High-grade sprain versus partial tear of the medial collateral ligament. 8. Prominent cartilage thinning and loss overlying the lateral patellar facet extending to the subchondral bone with signal change in the adjacent marrow suggestive for osteochondral change. 9. High-grade strain versus partial tearing of the medial and lateral patellar retinaculum. 10. Cartilage thinning and loss involving the medial and lateral compartments of the femorotibial joint space. 11. Large suprapatellar joint effusion with associated synovial debris and hypertrophy. Suggestion of a possible small layering hemarthrosis. Moderate posterior Pérez's cyst.
--- NOTE | 2016-10-09 06:49 | CP.PCM.PN ---
Subjective - Date & Time of Evaluation Date of Evaluation: 10/09/16 Time of Evaluation: 06:45 - Subjective Subjective: PODIATRY PROGRESS NOTE DR. DOMINGUEZ: 61 yo male S&E at bedside this morning for f/u of left ankle fracture. Pt seen resting in bed at time of visit, with left leg elevated on 3 pillows. Both pt and nursing deny any acute events overnight. Denies pain or discomfort to the left ankle or knee today, says swelling feels improved to the left knee. Does complain of some cramping to the right lower back and right leg. Denies any calf pain bl, denies any numbness or tingling to the left foot or ankle today. Pt does say he feels depressed today about the rehab he will require following surgery. Objective - Vital Signs/Intake and Output Vital Signs (last 24 hours): Temp Pulse Resp BP Pulse Ox 98.5 F 65 18 131/74 95 10/08/16 20:35 10/08/16 23:50 10/08/16 20:35 10/08/16 23:50 10/08/16 20:35 - Medications Medications: Current Medications Amlodipine Besylate (Norvasc) 10 mg PO 0000 [facility] Last Admin: 10/08/16 23:50 Dose: 10 mg Atorvastatin Calcium (Lipitor) 20 mg PO DAILY [facility] Last Admin: 10/08/16 08:40 Dose: 20 mg Bupivacaine HCl (Marcaine 0.5% Pf (10 Ml)) 10 ml IJ ONCE ONE Stop: 10/09/16 13:05 Bupropion HCl (Wellbutrin) 100 mg PO 0900,1600 [facility] Last Admin: 10/08/16 16:57 Dose: 100 mg Chlorthalidone (Hygroton) 25 mg PO DAILY [facility] Last Admin: 10/08/16 08:42 Dose: 25 mg Clonazepam (Klonopin) 1 mg PO 0000,0900,1600 [facility] Last Admin: 10/08/16 23:50 Dose: 1 mg Clonidine HCl (Catapres) 0.1 mg PO 0000,1600 [facility] Last Admin: 10/08/16 23:54 Dose: Not Given Clonidine HCl (Catapres) 0.2 mg PO DAILY [facility] Last Admin: 10/08/16 08:39 Dose: 0.2 mg Enoxaparin Sodium (Lovenox) 40 mg SC DAILY [facility] PRN Reason: Protocol Last Admin: 10/08/16 16:58 Dose: 40 mg Fluoxetine HCl (Prozac) 40 mg PO DAILY [facility] Last Admin: 10/08/16 08:40 Dose: 40 mg Fluoxetine HCl (Prozac) 20 mg PO 1600 [facility] Last Admin: 10/08/16 16:57 Dose: 20 mg Gabapentin (Neurontin) 800 mg PO 0000,0900,1600 [facility] Last Admin: 10/08/16 23:50 Dose: 800 mg Home Med (Diclofenac Sodium/Misoprostol [Diclofenac-Misoprost 75-0.2 Tb]) 1 mg PO DAILY [facility] Hydralazine HCl (Apresoline) 100 mg PO DAILY [facility] Last Admin: 10/08/16 08:39 Dose: 100 mg Hydralazine HCl (Apresoline) 50 mg PO 0000 [facility] Last Admin: 10/08/16 23:54 Dose: Not Given Cefazolin Sodium 2 gm/ Sodium (Chloride) 100 mls @ 100 mls/hr IVPB Q8 [facility] Ketorolac Tromethamine (Toradol) 30 mg IVP Q6 PRN PRN Reason: Pain, moderate (4-7) Last Admin: 10/08/16 16:59 Dose: 30 mg Lidocaine HCl (Lidocaine Hcl 1% Pf 5ml) 10 ml INJ ONCE ONE Stop: 10/09/16 13:05 Methylprednisolone Acetate (Depo-Medrol) 80 mg IM ONCE ONE Stop: 10/09/16 13:05 Metoprolol Tartrate (Lopressor) 200 mg PO DAILY [facility] Last Admin: 10/08/16 08:41 Dose: 200 mg Metoprolol Tartrate (Lopressor) 100 mg PO 1600 [facility] Mirtazapine (Remeron) 15 mg PO HS [facility] Last Admin: 10/08/16 21:02 Dose: 15 mg Pantoprazole Sodium (Protonix Ec Tab) 40 mg PO DAILY [facility] Last Admin: 10/08/16 08:40 Dose: 40 mg Potassium Chloride (K-Dur 20 Meq Er Tab) 20 meq PO ONCE ONE Stop: 10/09/16 13:16 Tizanidine HCl (Zanaflex) 1 mg PO Q12 PRN PRN Reason: SPASM Valsartan (Diovan) 320 mg PO DAILY [facility] Last Admin: 10/08/16 08:38 Dose: 320 mg - Labs Labs: 10/08/16 06:10 10/08/16 06:10 PT 11.4 SECONDS (9.6-11.2) H 10/06/16 23:10 INR 1.10 (0.92-1.08) H 10/06/16 23:10 APTT 30.6 SECONDS (23.3-32.5) 10/06/16 23:10 - Constitutional Appears: Non-toxic, No Acute Distress - Extremities Exam Extremities Exam: absent: Calf Tenderness Additional comments: LLE exam: Cast appears c/d/i to left lower extremity, pt able to wiggle toes freely, capillary refill < 3 sec to all digits x 5, edema appears to be resolving to the left leg today (proximal to the lower extremity cast) - Neurological Exam Neurological Exam: Alert, Awake, Oriented x3 - Psychiatric Exam Psychiatric exam: Normal Affect, Normal Mood Assessment and Plan - Assessment and Plan (Free Text) Assessment: 61 yo male patient w/ left ankle fracture (3 days s/p closed reduction) Plan: -Pt S&E at bedside -Plan discussed w/ attending Dr. Dominguez -Chart, labs, vitals reviewed: afebrile, wbc 8.3 today -Left knee x-ray: Moderate suprapatellar joint effusion. No acute displaced fracture or dislocation identified. -Left knee MRI: complete rupture ACL, subchondral fx mid-lateral femoral condyle & posterior lateral proximal tibial plateau, curvilinear fx of fibular head, high grade strain vs. partial tear biceps femoris tendon, prominent OCD lesion (1.7 cm) at posterior medial femoral condyle at articular surface, possible lateral meniscus tear, high grade sprain vs. partial tear MCL and lateral patellar retinaculum, large suprapatellar joint effusion possible small layering hemarthrosis. -Lumbar spine x-ray: No radiographic evidence of acute fracture or subluxation. Severe degenerative changes at the lower spine. -Discussed findings w/ Dr. Escalante (orthopedist on consult): recommends left knee immobilzer, per Dr. Escalante no orthopedic spinal contraindications for the ankle surgery tomorrow. Recommendations appreciated. -Knee immobilizer dispensed and applied to the left knee. -Addressed all questions & concerns with patient. -Discussed w/ primary team: medical clearance pending -Cardiology: pt is cleared per Dr. Monica Espinoza for surgery tomorrow. Recommendations appreciated -Lovenox for DVT prophylaxis (will be held ) -Ancef 2g q8h started today (prophylaxis ) -Strict NWB to the left lower extremity -NPO after midnight -To OR tomorrow morning 10/10 w/ Dr. Dominguez for ORIF left ankle -Pt will likely require rehab placement following surgery -Will continue to follow
[2016-10-09 06:54] LABS: HEMATOCRIT 35.1 % (35.0-51.0); MEAN CELL VOLUME 87.9 fl (80.0-94.0); MEAN CORPUSCULAR HGB CONC 34.2 g/dL (33.0-37.0); RED CELL DISTRIBUTION WIDTH 13.9 % (11.5-14.5); WHITE BLOOD COUNT 8.3 K/uL (4.8-10.8)
[2016-10-09 06:56] LABS: BLOOD UREA NITROGEN 23 mg/dl (9-20); CALCIUM 8.8 mg/dL (8.4-10.2); CARBON DIOXIDE 27 mmol/L (22-30); CHLORIDE 103 mmol/L (98-107); GFR AFRICAN-AMERICAN > 60; GLUCOSE,RANDOM 88 mg/dL (75-110); POTASSIUM 3.4 MMOL/L (3.6-5.0); SODIUM 143 mmol/l (132-148)
--- NOTE | 2016-10-09 07:36 | CP.PCM.PN ---
<Geneva Fernandez - Last Filed: 10/09/16 18:29> Subjective - Date & Time of Evaluation Date of Evaluation: 10/09/16 Time of Evaluation: 07:36 - Subjective Subjective: 61M seen and examined at the bedside with attending. Patient denies any shortness of breath or chest pain, but is quite frustrated with the amount of time is required to address the injuries he has sustained. Otherwise, his pain is well-controlled and is eating. Objective - Vital Signs/Intake and Output Vital Signs (last 24 hours): Temp Pulse Resp BP Pulse Ox 36.9 C 65 18 131/74 95 10/08/16 20:35 10/08/16 23:50 10/08/16 20:35 10/08/16 23:50 10/08/16 20:35 - Medications Medications: Current Medications Amlodipine Besylate (Norvasc) 10 mg PO 0000 [facility] Last Admin: 10/08/16 23:50 Dose: 10 mg Atorvastatin Calcium (Lipitor) 20 mg PO DAILY [facility] Last Admin: 10/08/16 08:40 Dose: 20 mg Bupivacaine HCl (Marcaine 0.5% Pf (10 Ml)) 10 ml IJ ONCE ONE Stop: 10/09/16 13:05 Bupropion HCl (Wellbutrin) 100 mg PO 0900,1600 [facility] Last Admin: 10/08/16 16:57 Dose: 100 mg Chlorthalidone (Hygroton) 25 mg PO DAILY [facility] Last Admin: 10/08/16 08:42 Dose: 25 mg Clonazepam (Klonopin) 1 mg PO 0000,0900,1600 [facility] Last Admin: 10/08/16 23:50 Dose: 1 mg Clonidine HCl (Catapres) 0.1 mg PO 0000,1600 [facility] Last Admin: 10/08/16 23:54 Dose: Not Given Clonidine HCl (Catapres) 0.2 mg PO DAILY [facility] Last Admin: 10/08/16 08:39 Dose: 0.2 mg Enoxaparin Sodium (Lovenox) 40 mg SC DAILY [facility] PRN Reason: Protocol Last Admin: 10/08/16 16:58 Dose: 40 mg Fluoxetine HCl (Prozac) 40 mg PO DAILY [facility] Last Admin: 10/08/16 08:40 Dose: 40 mg Fluoxetine HCl (Prozac) 20 mg PO 1600 [facility] Last Admin: 10/08/16 16:57 Dose: 20 mg Gabapentin (Neurontin) 800 mg PO 0000,0900,1600 [facility] Last Admin: 10/08/16 23:50 Dose: 800 mg Home Med (Diclofenac Sodium/Misoprostol [Diclofenac-Misoprost 75-0.2 Tb]) 1 mg PO DAILY [facility] Hydralazine HCl (Apresoline) 100 mg PO DAILY [facility] Last Admin: 10/08/16 08:39 Dose: 100 mg Hydralazine HCl (Apresoline) 50 mg PO 0000 [facility] Last Admin: 10/08/16 23:54 Dose: Not Given Cefazolin Sodium 2 gm/ Sodium (Chloride) 100 mls @ 100 mls/hr IVPB Q8 [facility] Ketorolac Tromethamine (Toradol) 30 mg IVP Q6 PRN PRN Reason: Pain, moderate (4-7) Last Admin: 10/08/16 16:59 Dose: 30 mg Lidocaine HCl (Lidocaine Hcl 1% Pf 5ml) 10 ml INJ ONCE ONE Stop: 10/09/16 13:05 Methylprednisolone Acetate (Depo-Medrol) 80 mg IM ONCE ONE Stop: 10/09/16 13:05 Metoprolol Tartrate (Lopressor) 200 mg PO DAILY [facility] Last Admin: 10/08/16 08:41 Dose: 200 mg Metoprolol Tartrate (Lopressor) 100 mg PO 1600 [facility] Mirtazapine (Remeron) 15 mg PO HS [facility] Last Admin: 10/08/16 21:02 Dose: 15 mg Pantoprazole Sodium (Protonix Ec Tab) 40 mg PO DAILY [facility] Last Admin: 10/08/16 08:40 Dose: 40 mg Potassium Chloride (K-Dur 20 Meq Er Tab) 20 meq PO ONCE ONE Stop: 10/09/16 13:16 Tizanidine HCl (Zanaflex) 1 mg PO Q12 PRN PRN Reason: SPASM Valsartan (Diovan) 320 mg PO DAILY [facility] Last Admin: 10/08/16 08:38 Dose: 320 mg - Labs Labs: 10/09/16 05:50 10/09/16 05:50 PT 11.4 SECONDS (9.6-11.2) H 10/06/16 23:10 INR 1.10 (0.92-1.08) H 10/06/16 23:10 APTT 30.6 SECONDS (23.3-32.5) 10/06/16 23:10 - Constitutional Appears: Well, Non-toxic, No Acute Distress - Head Exam Head Exam: ATRAUMATIC, NORMAL INSPECTION - Eye Exam Eye Exam: EOMI, PERRL - ENT Exam ENT Exam: Mucous Membranes Moist, Normal Exam - Neck Exam Neck Exam: Normal Inspection. absent: Full ROM (LROM due to prior cervical fusion) - Respiratory Exam Respiratory Exam: Clear to Ausculation Bilateral, NORMAL BREATHING PATTERN. absent: Rales, Wheezes - Cardiovascular Exam Cardiovascular Exam: REGULAR RHYTHM. absent: JVD - GI/Abdominal Exam GI & Abdominal Exam: Soft, Normal Bowel Sounds. absent: Tenderness - Extremities Exam Extremities Exam: Normal Capillary Refill (LEFT DP palpated). absent: Normal Inspection (LLE has splint with ha wrap from toes to proximal tibia) Additional comments: LEFT knee with suprapatellar fluid collection - Neurological Exam Neurological Exam: Alert, Awake, Oriented x3 - Psychiatric Exam Psychiatric exam: Anxious, Normal Affect - Skin Skin Exam: Normal Color, Warm Assessment and Plan (1) Trimalleolar fracture of left ankle Assessment & Plan: Patient is medically optimized for proposed surgery and has been appropriately evaluated by cardiology for his underlying cardiac conditions. Planned surgery (10/10)@ 0730. - Cardiology Consult (Dr Espinoza) appreciated: stable to proceed for surgery - Orthopedic Consult (Dr Johnson) appreciated: MRI shows multiple ligamentous injury, ?aspiration of LEFT knee fluid - NPO except meds/IVF/HOLD Lovenox - Pain management Status: Acute (2) DVT prophylaxis Assessment & Plan: HOLD Lovenox 40mg, SC, Daily c/w SCDs Status: Acute (3) HTN (hypertension) Assessment & Plan: Chronic, remains controlled - Clonidine - Lopressor - Norvasc - Chlorthalidone - Valsartan - Hydralazine Status: Chronic (4) Chronic lower back pain Assessment & Plan: - Diclofenac - Gabapentin Status: Chronic (5) Psychiatric disorder Assessment & Plan: Chronic, controlled. - Wellbutrin - Klonopin - Fluoxetine - Remeron Status: Chronic <Dai,Kieran K - Last Filed: 10/18/16 18:19> Objective - Vital Signs/Intake and Output Vital Signs (last 24 hours): Temp Pulse Resp BP Pulse Ox 98.8 F 65 20 138/87 97 10/11/16 16:59 10/11/16 16:59 10/11/16 16:59 10/11/16 16:59 10/12/16 10:50 - Labs Labs: 10/11/16 07:45 10/11/16 07:45 PT 11.6 SECONDS (9.6-11.2) H 10/10/16 05:40 INR 1.12 (0.92-1.08) H 10/10/16 05:40 APTT 30.6 SECONDS (23.3-32.5) 10/06/16 23:10 Assessment and Plan - Assessment and Plan (Free Text) Assessment: Patient was personally seen and examined by me in rounds with residents. Available labs and diagnostic data reviewed. Case, Patient's condition and management plan discussed with residents in rounds. Agree with resident's documentation. Plan: As ordered. Kieran Dai MD
--- NOTE | 2016-10-09 09:18 | CP.PCM.PN ---
Subjective - Date & Time of Evaluation Date of Evaluation: 10/09/16 Time of Evaluation: 09:10 - Subjective Subjective: Depressed at the prospect of a long period of disability following Sx Otherwise feels okay HR 60 BPM reg BP 136/80 mm Hg No rales, no gallop Pt's persantine SPECT scan and Echo results of mid 2015 reviewed Spoke with his [facility]arial [facility] Dr. Victoria in [facility] Pt is stable to proceed with planned Sx Today's labs reviewed K+ being replaced Objective - Vital Signs/Intake and Output Vital Signs (last 24 hours): Temp Pulse Resp BP Pulse Ox 98 F 67 20 144/78 96 10/09/16 08:02 10/09/16 08:02 10/09/16 08:02 10/09/16 08:02 10/09/16 08:02 - Medications Medications: Current Medications Amlodipine Besylate (Norvasc) 10 mg PO 0000 [facility] Last Admin: 10/08/16 23:50 Dose: 10 mg Atorvastatin Calcium (Lipitor) 20 mg PO DAILY [facility] Last Admin: 10/08/16 08:40 Dose: 20 mg Bupivacaine HCl (Marcaine 0.5% Pf (10 Ml)) 10 ml IJ ONCE ONE Stop: 10/09/16 13:05 Bupropion HCl (Wellbutrin) 100 mg PO 0900,1600 [facility] Last Admin: 10/08/16 16:57 Dose: 100 mg Chlorthalidone (Hygroton) 25 mg PO DAILY [facility] Last Admin: 10/08/16 08:42 Dose: 25 mg Clonazepam (Klonopin) 1 mg PO 0000,0900,1600 [facility] Last Admin: 10/09/16 08:01 Dose: 1 mg Clonidine HCl (Catapres) 0.1 mg PO 0000,1600 [facility] Last Admin: 10/08/16 23:54 Dose: Not Given Clonidine HCl (Catapres) 0.2 mg PO DAILY [facility] Last Admin: 10/08/16 08:39 Dose: 0.2 mg Enoxaparin Sodium (Lovenox) 40 mg SC DAILY [facility] PRN Reason: Protocol Last Admin: 10/08/16 16:58 Dose: 40 mg Fluoxetine HCl (Prozac) 40 mg PO DAILY [facility] Last Admin: 10/08/16 08:40 Dose: 40 mg Fluoxetine HCl (Prozac) 20 mg PO 1600 [facility] Last Admin: 10/08/16 16:57 Dose: 20 mg Gabapentin (Neurontin) 800 mg PO 0000,0900,1600 [facility] Last Admin: 10/08/16 23:50 Dose: 800 mg Home Med (Diclofenac Sodium/Misoprostol [Diclofenac-Misoprost 75-0.2 Tb]) 1 mg PO DAILY [facility] Hydralazine HCl (Apresoline) 100 mg PO DAILY [facility] Last Admin: 10/08/16 08:39 Dose: 100 mg Hydralazine HCl (Apresoline) 50 mg PO 0000 [facility] Last Admin: 10/08/16 23:54 Dose: Not Given Cefazolin Sodium 2 gm/ Sodium (Chloride) 100 mls @ 100 mls/hr IVPB Q8 [facility] Ketorolac Tromethamine (Toradol) 30 mg IVP Q6 PRN PRN Reason: Pain, moderate (4-7) Last Admin: 10/08/16 16:59 Dose: 30 mg Lidocaine HCl (Lidocaine Hcl 1% Pf 5ml) 10 ml INJ ONCE ONE Stop: 10/09/16 13:05 Methylprednisolone Acetate (Depo-Medrol) 80 mg IM ONCE ONE Stop: 10/09/16 13:05 Metoprolol Tartrate (Lopressor) 200 mg PO DAILY [facility] Last Admin: 10/08/16 08:41 Dose: 200 mg Metoprolol Tartrate (Lopressor) 100 mg PO 1600 [facility] Mirtazapine (Remeron) 15 mg PO HS [facility] Last Admin: 10/08/16 21:02 Dose: 15 mg Pantoprazole Sodium (Protonix Ec Tab) 40 mg PO DAILY [facility] Last Admin: 10/08/16 08:40 Dose: 40 mg Potassium Chloride (K-Dur 20 Meq Er Tab) 20 meq PO ONCE ONE Stop: 10/09/16 13:16 Tizanidine HCl (Zanaflex) 1 mg PO Q12 PRN PRN Reason: SPASM Valsartan (Diovan) 320 mg PO DAILY [facility] Last Admin: 10/08/16 08:38 Dose: 320 mg - Labs Labs: 10/09/16 05:50 10/09/16 05:50 PT 11.4 SECONDS (9.6-11.2) H 10/06/16 23:10 INR 1.10 (0.92-1.08) H 10/06/16 23:10 APTT 30.6 SECONDS (23.3-32.5) 10/06/16 23:10
[2016-10-09] MEDS: Enoxaparin 40 mg Syringe SC SCH (09:23)
[2016-10-09] MEDS: Pantoprazole 40 mg EC Tab PO SCH (09:26)
[2016-10-09] MEDS: ceFAZolin 2 GM in Sodium Chloride 0.9% 100 ML IVPB SCH ×2 (10:47→17:39)
[2016-10-09] MEDS ORDERED: Lidocaine 1% PF (5ml) Amp INJ ONE (13:04)
[2016-10-09] MEDS ORDERED: methylPREDNISolone Depo 80 mg/ml Inj IM ONE (13:04)
[2016-10-09] MEDS ORDERED: Bupivacaine HCl 0.5% PF (10 ml) Inj IJ ONE (13:04)
[2016-10-09] MEDS ORDERED: Potassium Chloride 20 mEq ER Tab PO ONE (13:15)
[2016-10-09] MEDS ORDERED: Potassium Chloride 20 mEq/15 ml LIQ UD PO ONE (19:00)
[2016-10-09] MEDS: Potassium Ch 20mEq in D5-1/2NS 1,000 ML IV SCH (23:33)
[2016-10-10] MEDS: ceFAZolin 2 GM in Sodium Chloride 0.9% 100 ML IVPB SCH ×3 (00:06→16:50)
[2016-10-10 05:52] LABS: HEMATOCRIT 32.9 % (35.0-51.0); MEAN CELL VOLUME 88.7 fl (80.0-94.0); MEAN CORPUSCULAR HEMOGLOBIN 29.5 pg (27.0-31.0); MEAN CORPUSCULAR HGB CONC 33.3 g/dL (33.0-37.0); RED CELL DISTRIBUTION WIDTH 13.5 % (11.5-14.5); WHITE BLOOD COUNT 6.3 K/uL (4.8-10.8)
[2016-10-10 05:56] LABS: CHLORIDE 105 mmol/L (98-107); POTASSIUM 3.4 MMOL/L (3.6-5.0); SODIUM 138 mmol/l (132-148)
[2016-10-10 05:58] LABS: GFR AFRICAN-AMERICAN > 60
[2016-10-10 05:59] LABS: BLOOD UREA NITROGEN 22 mg/dl (9-20); CALCIUM 8.5 mg/dL (8.4-10.2); CARBON DIOXIDE 24 mmol/L (22-30); GLUCOSE,RANDOM 99 mg/dL (75-110)
--- NOTE | 2016-10-10 06:13 | CP.PCM.PN ---
Subjective - Date & Time of Evaluation Date of Evaluation: 10/10/16 Time of Evaluation: 06:20 - Subjective Subjective: PODIATRY PROGRESS NOTE DR. DOMINGUEZ: 61 yo male S&E at bedside this morning for f/u of left ankle fracture. Pt resting comfortably in bed at time of visit. Denies any pain or discomfort at this time. Says he is ready for surgery today. Denies sf/n/v/c/sob/cp. Admits to NPO past midnight. Objective - Vital Signs/Intake and Output Vital Signs (last 24 hours): Temp Pulse Resp BP Pulse Ox 98 F 59 L 18 120/64 94 L 10/09/16 21:13 10/10/16 00:07 10/09/16 21:13 10/10/16 00:07 10/09/16 21:13 - Medications Medications: Current Medications Amlodipine Besylate (Norvasc) 10 mg PO 0000 [facility] Last Admin: 10/10/16 00:08 Dose: Not Given Atorvastatin Calcium (Lipitor) 20 mg PO DAILY [facility] Last Admin: 10/09/16 09:28 Dose: 20 mg Bupropion HCl (Wellbutrin) 100 mg PO 0900,1600 [facility] Last Admin: 10/09/16 17:33 Dose: 100 mg Chlorthalidone (Hygroton) 25 mg PO DAILY [facility] Last Admin: 10/09/16 09:26 Dose: 25 mg Clonazepam (Klonopin) 1 mg PO 0000,0900,1600 [facility] Last Admin: 10/09/16 23:34 Dose: 1 mg Clonidine HCl (Catapres) 0.1 mg PO 0000,1600 [facility] Last Admin: 10/10/16 00:07 Dose: Not Given Clonidine HCl (Catapres) 0.2 mg PO DAILY [facility] Last Admin: 10/09/16 09:24 Dose: 0.2 mg Enoxaparin Sodium (Lovenox) 40 mg SC DAILY [facility] PRN Reason: Protocol Last Admin: 10/09/16 09:23 Dose: 40 mg Fluoxetine HCl (Prozac) 40 mg PO DAILY [facility] Last Admin: 10/09/16 09:23 Dose: 40 mg Fluoxetine HCl (Prozac) 20 mg PO 1600 [facility] Last Admin: 10/09/16 17:33 Dose: 20 mg Gabapentin (Neurontin) 800 mg PO 0000,0900,1600 [facility] Last Admin: 10/10/16 00:06 Dose: 800 mg Home Med (Diclofenac Sodium/Misoprostol [Diclofenac-Misoprost 75-0.2 Tb]) 1 mg PO DAILY [facility] Hydralazine HCl (Apresoline) 100 mg PO DAILY [facility] Last Admin: 10/09/16 09:35 Dose: 100 mg Hydralazine HCl (Apresoline) 50 mg PO 0000 [facility] Last Admin: 10/10/16 00:07 Dose: Not Given Cefazolin Sodium 2 gm/ Sodium (Chloride) 100 mls @ 100 mls/hr IVPB Q8 [facility] Last Admin: 10/10/16 00:06 Dose: 100 mls/hr Potassium Chloride/Dextrose/Sod Cl (Potassium Chl 20 Meq In D5-1/2ns) 1,000 mls @ 150 mls/hr IV .Q6H40M [facility] Stop: 10/10/16 18:32 Last Admin: 10/09/16 23:33 Dose: 150 mls/hr Ketorolac Tromethamine (Toradol) 30 mg IVP Q6 PRN PRN Reason: Pain, moderate (4-7) Last Admin: 10/09/16 14:39 Dose: 30 mg Metoprolol Tartrate (Lopressor) 200 mg PO DAILY [facility] Last Admin: 10/09/16 10:46 Dose: 200 mg Metoprolol Tartrate (Lopressor) 100 mg PO 1600 [facility] Last Admin: 10/09/16 17:29 Dose: 100 mg Mirtazapine (Remeron) 15 mg PO HS [facility] Last Admin: 10/09/16 21:06 Dose: 15 mg Pantoprazole Sodium (Protonix Ec Tab) 40 mg PO DAILY [facility] Last Admin: 10/09/16 09:26 Dose: 40 mg Tizanidine HCl (Zanaflex) 1 mg PO Q12 PRN PRN Reason: SPASM Last Admin: 10/09/16 09:28 Dose: 1 mg Valsartan (Diovan) 320 mg PO DAILY [facility] Last Admin: 10/09/16 09:29 Dose: 320 mg - Labs Labs: 10/10/16 05:40 10/10/16 05:40 PT 11.4 SECONDS (9.6-11.2) H 10/06/16 23:10 INR 1.10 (0.92-1.08) H 10/06/16 23:10 APTT 30.6 SECONDS (23.3-32.5) 10/06/16 23:10 - Constitutional Appears: Well, Non-toxic, No Acute Distress - Extremities Exam Additional comments: LLE: cast appears c/d/i, cft< 3 sec to digits x5, able to wiggle all toes, edema appears to be resolving - Neurological Exam Neurological Exam: Alert, Awake, Oriented x3 - Psychiatric Exam Psychiatric exam: Normal Affect, Normal Mood Assessment and Plan - Assessment and Plan (Free Text) Assessment: 61 yo male patient w/ left ankle fracture Plan: -Pt S&E at bedside -Chart, labs, vitals reviewed: afebrile, wbc 6.3 -Cleared per cardiology -Cleared per primary -Cleared per ortho -NPO status confirmed All Pre-op testing and clearance was in the chart Pt has exhausted all conservative treatment at this time and requires surgical intervention Pt was explained procedure and post-operative course All pt's questions were answered to satisfaction No guarantees were made Pt understands all risks, benefits and complications of procedure Pt will follow-up with Dr Dominguez
[2016-10-10] MEDS ORDERED: Midazolam 2 MG/2 ML VIAL ONE (07:02)
[2016-10-10] MEDS ORDERED: Propofol 10 mg/ml Inj (20 ML) ONE ×2 (07:02→09:51)
[2016-10-10] MEDS ORDERED: Rocuronium 10 mg/ml (5 ml) ONE (07:02)
[2016-10-10] MEDS ORDERED: Succinylcholine 200 mg/10 ml Inj IV ONE (07:02)
[2016-10-10] MEDS ORDERED: ePHEDrine 50 mg/ml Inj ONE (07:10)
[2016-10-10] MEDS ORDERED: Ropivacaine 0.5% 30ML IV ONE (07:18)
[2016-10-10] MEDS: Potassium Ch 20mEq in D5-1/2NS 1,000 ML IV SCH ×3 (07:19→17:33)
[2016-10-10] MEDS ORDERED: Lidocaine 1% Inj (20ml) ONE (07:22)
[2016-10-10] MEDS ORDERED: Bupivacaine 0.5% Inj(30mL) ONE (07:22)
[2016-10-10] MEDS ORDERED: Lactated Ringer's 1,000 ML IV ONE ×2 (08:00→10:30)
--- NOTE | 2016-10-10 08:06 | CP.PCM.PN ---
<Geneva Fernandez - Last Filed: 10/10/16 18:56> Subjective - Date & Time of Evaluation Date of Evaluation: 10/10/16 Time of Evaluation: 06:30 - Subjective Subjective: 61M seen and examined at bedside this morning prior to surgery. Patient says he is ready for surgery and affirms nothing since midnight. Denies any shortness of breath or chest pain overnight and the pain in his LEFT leg has been adequately controlled with the medication ordered. Objective - Vital Signs/Intake and Output Vital Signs (last 24 hours): Temp Pulse Resp BP Pulse Ox 36.6 C 59 L 18 120/64 94 L 10/09/16 21:13 10/10/16 00:07 10/09/16 21:13 10/10/16 00:07 10/09/16 21:13 - Medications Medications: Current Medications Amlodipine Besylate (Norvasc) 10 mg PO 0000 [facility] Last Admin: 10/10/16 00:08 Dose: Not Given Atorvastatin Calcium (Lipitor) 20 mg PO DAILY [facility] Last Admin: 10/09/16 09:28 Dose: 20 mg Bupropion HCl (Wellbutrin) 100 mg PO 0900,1600 [facility] Last Admin: 10/09/16 17:33 Dose: 100 mg Chlorthalidone (Hygroton) 25 mg PO DAILY [facility] Last Admin: 10/09/16 09:26 Dose: 25 mg Clonazepam (Klonopin) 1 mg PO 0000,0900,1600 [facility] Last Admin: 10/09/16 23:34 Dose: 1 mg Clonidine HCl (Catapres) 0.1 mg PO 0000,1600 [facility] Last Admin: 10/10/16 00:07 Dose: Not Given Clonidine HCl (Catapres) 0.2 mg PO DAILY [facility] Last Admin: 10/09/16 09:24 Dose: 0.2 mg Enoxaparin Sodium (Lovenox) 40 mg SC DAILY [facility] PRN Reason: Protocol Last Admin: 10/09/16 09:23 Dose: 40 mg Fluoxetine HCl (Prozac) 40 mg PO DAILY [facility] Last Admin: 10/09/16 09:23 Dose: 40 mg Fluoxetine HCl (Prozac) 20 mg PO 1600 [facility] Last Admin: 10/09/16 17:33 Dose: 20 mg Gabapentin (Neurontin) 800 mg PO 0000,0900,1600 [facility] Last Admin: 10/10/16 00:06 Dose: 800 mg Home Med (Diclofenac Sodium/Misoprostol [Diclofenac-Misoprost 75-0.2 Tb]) 1 mg PO DAILY [facility] Hydralazine HCl (Apresoline) 100 mg PO DAILY [facility] Last Admin: 10/09/16 09:35 Dose: 100 mg Hydralazine HCl (Apresoline) 50 mg PO 0000 [facility] Last Admin: 10/10/16 00:07 Dose: Not Given Cefazolin Sodium 2 gm/ Sodium (Chloride) 100 mls @ 100 mls/hr IVPB Q8 [facility] Last Admin: 10/10/16 00:06 Dose: 100 mls/hr Potassium Chloride/Dextrose/Sod Cl (Potassium Chl 20 Meq In D5-1/2ns) 1,000 mls @ 150 mls/hr IV .Q6H40M [facility] Stop: 10/10/16 18:32 Last Admin: 10/10/16 07:19 Dose: Not Given Ketorolac Tromethamine (Toradol) 30 mg IVP Q6 PRN PRN Reason: Pain, moderate (4-7) Last Admin: 10/09/16 14:39 Dose: 30 mg Metoprolol Tartrate (Lopressor) 200 mg PO DAILY [facility] Last Admin: 10/09/16 10:46 Dose: 200 mg Metoprolol Tartrate (Lopressor) 100 mg PO 1600 [facility] Last Admin: 10/09/16 17:29 Dose: 100 mg Mirtazapine (Remeron) 15 mg PO HS [facility] Last Admin: 10/09/16 21:06 Dose: 15 mg Pantoprazole Sodium (Protonix Ec Tab) 40 mg PO DAILY [facility] Last Admin: 10/09/16 09:26 Dose: 40 mg Tizanidine HCl (Zanaflex) 1 mg PO Q12 PRN PRN Reason: SPASM Last Admin: 10/09/16 09:28 Dose: 1 mg Valsartan (Diovan) 320 mg PO DAILY [facility] Last Admin: 10/09/16 09:29 Dose: 320 mg - Labs Labs: 10/10/16 05:40 10/10/16 05:40 PT 11.6 SECONDS (9.6-11.2) H 10/10/16 05:40 INR 1.12 (0.92-1.08) H 10/10/16 05:40 APTT 30.6 SECONDS (23.3-32.5) 10/06/16 23:10 Assessment and Plan (1) Trimalleolar fracture of left ankle Assessment & Plan: Patient medically optimized for surgery this AM. - Cardiology Consult (Dr Espinoza) appreciated: stable to proceed for surgery - Orthopedic Consult (Dr Johnson) appreciated: MRI shows multiple ligamentous injury, ?aspiration of LEFT knee fluid - NPO except meds/IVF/HOLD Lovenox - Pain management Status: Acute (2) DVT prophylaxis Assessment & Plan: HOLD Lovenox 40mg, SC, Daily c/w SCDs Status: Acute (3) HTN (hypertension) Assessment & Plan: Chronic, well-controlled - Clonidine - Lopressor - Norvasc - Chlorthalidone - Valsartan - Hydralazine Status: Chronic (4) Chronic lower back pain Assessment & Plan: - Diclofenac - Gabapentin Status: Chronic (5) Psychiatric disorder Assessment & Plan: Stable, controlled. - Wellbutrin - Klonopin - Fluoxetine - Remeron Status: Chronic <Kieran Dai - Last Filed: 10/17/16 17:12> Objective - Vital Signs/Intake and Output Vital Signs (last 24 hours): Temp Pulse Resp BP Pulse Ox 98.8 F 65 20 138/87 97 10/11/16 16:59 10/11/16 16:59 10/11/16 16:59 10/11/16 16:59 10/12/16 10:50 - Labs Labs: 10/11/16 07:45 10/11/16 07:45 PT 11.6 SECONDS (9.6-11.2) H 10/10/16 05:40 INR 1.12 (0.92-1.08) H 10/10/16 05:40 APTT 30.6 SECONDS (23.3-32.5) 10/06/16 23:10 Assessment and Plan - Assessment and Plan (Free Text) Assessment: Patient was personally seen and examined by me in rounds with residents. Available labs and diagnostic data reviewed. Case, Patient's condition and management plan discussed with residents in rounds. Agree with resident's documentation. Plan: As ordered. Kieran Dai MD
[2016-10-10] MEDS: Pantoprazole 40 mg EC Tab PO SCH ×2 (08:32→16:28)
[2016-10-10] MEDS ORDERED: Dexamethasone 4 mg/1 ml ONE (09:35)
[2016-10-10] MEDS ORDERED: Neostigmine Methylsulfate 2 MG/2 ML ML IV ONE (09:49)
[2016-10-10] MEDS ORDERED: HEMOSTATIC MATRIX 10 ML DIS.NEEDLE TOP ONE (10:48)
[2016-10-10] MEDS ORDERED: HYDROmorphone 0.5 mg/0.5 ml ISec IVP PRN (11:34)
--- NOTE | 2016-10-10 11:37 | PCM.ANESB2 ---
Popliteal Nerve Block - Popliteal Nerve Block Date of Procedure: 10/10/16 Anesthesiologist: Hector Pre-Procedure Diagnosis: Left Ankle Fracture Post-Procedure Diagnosis: Left Ankle Fracture Procedure Performed: Popliteal Nerve Block Left - Procedure Popliteal Nerve Block: This procedure was explained to the patient that it is for post-operative pain management. Consent was obtained after a thorough discussion with the patient regarding the benefits and possible complications of local anesthetic block of the sciatic nerve at the popliteal level. The patient was brought to the operating room and standard monitors are applied. Time-out was held with the circulating nurse to confirm the correct surgery and the appropriate block. After applying oxygen by nasal cannula and administering IV Sedation, patient's operative leg was gently raised and supported and the groove in between the biceps femoris and vastus lateralis muscles was carefully palpated. The skin approximately 8cm above the popliteal crease was then marked. The ultrasound transducer was then applied to the posterior thigh approximately 8cm above the popliteal crease in the transverse plane and the sciatic nerve before its division was visualized lateral to the popliteal artery and in between the bicep femoris and semimembranosus/semitendinosus muscles. After identification, the lateral portion of the thigh was prepped with Betadine solution three times and Lidocaine 1% was injected subcutaneously for topical anesthesia. At this point, a # 21 gauge Stimuplex insulated 4 inch needle was inserted into pre-marked area and advanced in a perpendicular direction. The needle was inserted above the ultrasound transducer in-plane towards the sciatic nerve in a [id number] direction. Needle advancement was performed carefully under direct ultrasound visualization. Nerve stimulator was used and dorsiflexion of the left foot was elicited at a current of 0.3 MA. After repeated negative aspiration, 20 cc of 0.5 % Ropivicaine was injected. Under ultrasound guidance the local anesthetics were observed tenting the epidural sheath and surrounding the roots of the sciatic nerve. The needle was removed intact and sterile dressing was applied. The patient tolerated the popliteal nerve block well with stable vital signs and was subsequently prepared for the surgery.
--- NOTE | 2016-10-10 11:41 | PCM.SURG1 ---
Surgeon's Initial Post Op Note - Surgeon's Notes Surgeon: Dr. Dominguez [employer] Kettle Tender: Dr. Kerr PGY-3, Dr. Andrew, PGY-2, Dr. Avila PGY-2, Dr. Dooley PGY-2 Type of Anesthesia: General Endo, Block Regional Anesthesia Administered By: Dr. Young Pre-Operative Diagnosis: left displaced ankle fx Operative Findings: see operative report Post-Operative Diagnosis: same Operation Performed: ORIF left ankle fracture Specimen/Specimens Removed: none Estimated Blood Loss: EBL {In ML}: 20 Blood Products Given: N/A Drains Used: No Drains Post-Op Condition: Good Date of Surgery/Procedure: 10/10/16 Time of Surgery/Procedure: 08:00
[2016-10-10] MEDS ORDERED: DiphenhydrAMINE 50 mg/ml Inj ONE (12:20)
[2016-10-10] MEDS ORDERED: DiphenhydrAMINE 50 mg/ml Inj IVP PRN (12:22)
[2016-10-10 12:48] LABS: HEMATOCRIT 35.3 % (35.0-51.0)
--- NOTE | 2016-10-10 13:24 | RAD ---
PROCEDURE: Left Ankle Radiographs. HISTORY: s/p left ankle surgery COMPARISON: 10/06/2016 FINDINGS: BONES: Crust obscures fine bony details. Status post open reduction and internal fixation of a comminuted fracture in the distal fibula. There is near normal alignment of the bone fragments. There are metallic screws transfixing and medial malleoli fracture. JOINTS: Ankle mortise maintained. Talar dome intact SOFT TISSUES: There is moderate periarticular soft tissue swelling. OTHER FINDINGS: None. IMPRESSION: Status post open reduction and internal fixation of a comminuted fracture in the distal fibula, near normal alignment of bony fragments. Status post open reduction and internal fixation of a medial malleolar fracture. Moderate periarticular soft tissue swelling.
[2016-10-10] MEDS: Lactated Ringer's 1,000 ML IV SCH ×2 (16:22→19:34)
--- NOTE | 2016-10-10 19:01 | RAD ---
PROCEDURE: Fluoroscopy greater than 1 hour. HISTORY: ORIF LEFT ANKLE COMPARISON: None TECHNIQUE: Standard protocol for this study/examination. FINDINGS: Submitted images from the current procedure: 11.0 IMPRESSION: Total fluoroscopic time (continuous mode) utilized during the procedure: 29.6 seconds.
--- NOTE | 2016-10-10 19:04 | CP.PCM.PCO ---
Physician Communication Note - Physician Communication Note Physician Communication Note: Geneva Fernandez Addendum Addendum: 10/10/16 18:56 S: Pt reports not being able to feel or move his toes yet on the LEFT foot, but feels pretty good about everything. He has been tolerating PO and denies any SOB, chest pain, nausea. AVSS Lungs CTAB RRR, S1S2 SOFT, NT/ND LLE: Toes warm, cap refill <3s, DP palpable, splint with Stan wrap in place as well as LEFT knee immobilizer in place. A/P: 61M POD#0 s/p LEFT ankle repair of trimalleolar fracture in stable condition. - Resume Diet - Pain Mgmnmt/Abx/PT as per Podiatry team - Lovenox to resume 10/11 - Medically Stable
[2016-10-11] MEDS: ceFAZolin 2 GM in Sodium Chloride 0.9% 100 ML IVPB SCH ×3 (00:12→16:12)
[2016-10-11] MEDS: Lactated Ringer's 1,000 ML IV SCH ×2 (02:03→12:41)
--- NOTE | 2016-10-11 06:48 | CP.PCM.PN ---
Subjective - Date & Time of Evaluation Date of Evaluation: 10/11/16 Time of Evaluation: 06:47 - Subjective Subjective: 61M Objective - Vital Signs/Intake and Output Vital Signs (last 24 hours): Temp Pulse Resp BP Pulse Ox 36.8 C 74 18 113/66 95 10/11/16 00:00 10/11/16 00:00 10/11/16 00:00 10/11/16 00:00 10/11/16 00:00 Intake and Output: 10/10/16 10/11/16 18:59 06:59 Intake Total 1700 Balance 1700 - Medications Medications: Current Medications Amlodipine Besylate (Norvasc) 10 mg PO 0000 [facility] Last Admin: 10/11/16 00:00 Dose: Not Given Atorvastatin Calcium (Lipitor) 20 mg PO DAILY [facility] Last Admin: 10/10/16 16:43 Dose: 20 mg Bupropion HCl (Wellbutrin) 100 mg PO 0900,1600 [facility] Last Admin: 10/10/16 16:27 Dose: 100 mg Chlorthalidone (Hygroton) 25 mg PO DAILY [facility] Last Admin: 10/10/16 16:43 Dose: 25 mg Clonazepam (Klonopin) 1 mg PO 0000,0900,1600 [facility] Last Admin: 10/11/16 00:11 Dose: 1 mg Clonidine HCl (Catapres) 0.1 mg PO 0000,1600 [facility] Last Admin: 10/11/16 00:00 Dose: Not Given Clonidine HCl (Catapres) 0.2 mg PO DAILY [facility] Last Admin: 10/10/16 08:31 Dose: Not Given Diphenhydramine HCl (Benadryl) 25 mg IVP ONCE PRN PRN Reason: Nausea/Vomiting Last Admin: 10/10/16 12:30 Dose: 25 mg Enoxaparin Sodium (Lovenox) 40 mg SC DAILY [facility] PRN Reason: Protocol Last Admin: 10/09/16 09:23 Dose: 40 mg Fluoxetine HCl (Prozac) 40 mg PO DAILY [facility] Last Admin: 10/10/16 08:32 Dose: Not Given Fluoxetine HCl (Prozac) 20 mg PO 1600 [facility] Last Admin: 10/10/16 16:37 Dose: 20 mg Gabapentin (Neurontin) 800 mg PO 0000,0900,1600 [facility] Last Admin: 10/11/16 00:11 Dose: 800 mg Hydralazine HCl (Apresoline) 100 mg PO DAILY [facility] Last Admin: 10/10/16 16:47 Dose: Not Given Hydralazine HCl (Apresoline) 50 mg PO 0000 [facility] Last Admin: 10/11/16 00:00 Dose: Not Given Hydromorphone HCl (Dilaudid) 0.5 mg IVP Q10M PRN PRN Reason: Pain, moderate (4-7) Cefazolin Sodium 2 gm/ Sodium (Chloride) 100 mls @ 100 mls/hr IVPB Q8 [facility] Last Admin: 10/11/16 00:12 Dose: 100 mls/hr Lactated Ringer's (Lactated Ringer's) 1,000 mls @ 125 mls/hr IV .Q8H [facility] Last Admin: 10/11/16 02:03 Dose: 125 mls/hr Ketorolac Tromethamine (Toradol) 30 mg IVP Q6 PRN PRN Reason: Pain, moderate (4-7) Last Admin: 10/10/16 20:38 Dose: 30 mg Metoclopramide HCl (Reglan) 10 mg IVP ONCE PRN PRN Reason: Nausea/Vomiting Last Admin: 10/10/16 11:55 Dose: 10 mg Metoprolol Tartrate (Lopressor) 200 mg PO DAILY [facility] Last Admin: 10/10/16 07:00 Dose: 200 mg Metoprolol Tartrate (Lopressor) 100 mg PO 1600 [facility] Last Admin: 10/10/16 16:36 Dose: 100 mg Mirtazapine (Remeron) 15 mg PO HS [facility] Last Admin: 10/10/16 21:25 Dose: 15 mg Pantoprazole Sodium (Protonix Ec Tab) 40 mg PO DAILY [facility] Last Admin: 10/10/16 16:28 Dose: 40 mg Tizanidine HCl (Zanaflex) 1 mg PO Q12 PRN PRN Reason: SPASM Last Admin: 10/09/16 09:28 Dose: 1 mg Valsartan (Diovan) 320 mg PO DAILY [facility] Last Admin: 10/10/16 16:42 Dose: 320 mg - Labs Labs: 10/10/16 12:15 10/10/16 05:40 PT 11.6 SECONDS (9.6-11.2) H 10/10/16 05:40 INR 1.12 (0.92-1.08) H 10/10/16 05:40 APTT 30.6 SECONDS (23.3-32.5) 10/06/16 23:10 Assessment and Plan (1) Trimalleolar fracture of left ankle Status: Acute (2) DVT prophylaxis Status: Acute (3) HTN (hypertension) Status: Chronic (4) Chronic lower back pain Status: Chronic (5) Psychiatric disorder Status: Chronic
--- NOTE | 2016-10-11 07:23 | CP.PCM.PN ---
Subjective - Date & Time of Evaluation Date of Evaluation: 10/11/16 Time of Evaluation: 08:00 - Subjective Subjective: PODIATRY PROGRESS NOTE DR. DOMINGUEZ: 61 yo male S&E at bedside this morning w/ Dr. Dominguez present POD# 1 left ankle fracture. Pt seen resting comfortably at bedside at time of visit. Says pain is well-controlled. Denies f/n/v/c/sob/cp. Tolerating diet. Denies any other problems at this time. Objective - Vital Signs/Intake and Output Vital Signs (last 24 hours): Temp Pulse Resp BP Pulse Ox 98.3 F 74 18 113/66 95 10/11/16 00:00 10/11/16 00:00 10/11/16 00:00 10/11/16 00:00 10/11/16 00:00 - Medications Medications: Current Medications Amlodipine Besylate (Norvasc) 10 mg PO 0000 [facility] Last Admin: 10/11/16 00:00 Dose: Not Given Atorvastatin Calcium (Lipitor) 20 mg PO DAILY [facility] Last Admin: 10/10/16 16:43 Dose: 20 mg Bupropion HCl (Wellbutrin) 100 mg PO 0900,1600 [facility] Last Admin: 10/10/16 16:27 Dose: 100 mg Chlorthalidone (Hygroton) 25 mg PO DAILY [facility] Last Admin: 10/10/16 16:43 Dose: 25 mg Clonazepam (Klonopin) 1 mg PO 0000,0900,1600 [facility] Last Admin: 10/11/16 00:11 Dose: 1 mg Clonidine HCl (Catapres) 0.1 mg PO 0000,1600 [facility] Last Admin: 10/11/16 00:00 Dose: Not Given Clonidine HCl (Catapres) 0.2 mg PO DAILY [facility] Last Admin: 10/10/16 08:31 Dose: Not Given Diphenhydramine HCl (Benadryl) 25 mg IVP ONCE PRN PRN Reason: Nausea/Vomiting Last Admin: 10/10/16 12:30 Dose: 25 mg Enoxaparin Sodium (Lovenox) 40 mg SC DAILY [facility] PRN Reason: Protocol Last Admin: 10/09/16 09:23 Dose: 40 mg Fluoxetine HCl (Prozac) 40 mg PO DAILY [facility] Last Admin: 10/10/16 08:32 Dose: Not Given Fluoxetine HCl (Prozac) 20 mg PO 1600 [facility] Last Admin: 10/10/16 16:37 Dose: 20 mg Gabapentin (Neurontin) 800 mg PO 0000,0900,1600 [facility] Last Admin: 10/11/16 00:11 Dose: 800 mg Hydralazine HCl (Apresoline) 100 mg PO DAILY [facility] Last Admin: 10/10/16 16:47 Dose: Not Given Hydralazine HCl (Apresoline) 50 mg PO 0000 [facility] Last Admin: 10/11/16 00:00 Dose: Not Given Hydromorphone HCl (Dilaudid) 0.5 mg IVP Q10M PRN PRN Reason: Pain, moderate (4-7) Cefazolin Sodium 2 gm/ Sodium (Chloride) 100 mls @ 100 mls/hr IVPB Q8 [facility] Last Admin: 10/11/16 00:12 Dose: 100 mls/hr Lactated Ringer's (Lactated Ringer's) 1,000 mls @ 125 mls/hr IV .Q8H [facility] Last Admin: 10/11/16 02:03 Dose: 125 mls/hr Ketorolac Tromethamine (Toradol) 30 mg IVP Q6 PRN PRN Reason: Pain, moderate (4-7) Last Admin: 10/10/16 20:38 Dose: 30 mg Metoclopramide HCl (Reglan) 10 mg IVP ONCE PRN PRN Reason: Nausea/Vomiting Last Admin: 10/10/16 11:55 Dose: 10 mg Metoprolol Tartrate (Lopressor) 200 mg PO DAILY [facility] Last Admin: 10/10/16 07:00 Dose: 200 mg Metoprolol Tartrate (Lopressor) 100 mg PO 1600 [facility] Last Admin: 10/10/16 16:36 Dose: 100 mg Mirtazapine (Remeron) 15 mg PO HS [facility] Last Admin: 10/10/16 21:25 Dose: 15 mg Pantoprazole Sodium (Protonix Ec Tab) 40 mg PO DAILY [facility] Last Admin: 10/10/16 16:28 Dose: 40 mg Tizanidine HCl (Zanaflex) 1 mg PO Q12 PRN PRN Reason: SPASM Last Admin: 10/09/16 09:28 Dose: 1 mg Valsartan (Diovan) 320 mg PO DAILY [facility] Last Admin: 10/10/16 16:42 Dose: 320 mg - Labs Labs: 10/10/16 12:15 10/10/16 05:40 PT 11.6 SECONDS (9.6-11.2) H 10/10/16 05:40 INR 1.12 (0.92-1.08) H 10/10/16 05:40 APTT 30.6 SECONDS (23.3-32.5) 10/06/16 23:10 - Constitutional Appears: Well, Non-toxic, No Acute Distress - Extremities Exam Extremities Exam: absent: Calf Tenderness Additional comments: LLE: cast appears c/d/i, cft< 3 sec to digits x5, able to wiggle all toes, edema appears to be resolving - Neurological Exam Neurological Exam: Alert, Awake, Oriented x3 - Psychiatric Exam Psychiatric exam: Normal Affect, Normal Mood Assessment and Plan - Assessment and Plan (Free Text) Assessment: 61 yo male patient POD#1 ORIF left ankle fracture Plan: -Pt S&E at bedside this AM w/ Dr. Dominguez present -Chart,labs vitals reviewed: afebrile, wbc 11.5 (likely post-op reactive changes ) -Pt to remain NWB to left lower extremity w/ knee immobilizer -Physical therapy recommending TCU -F/U ortho rec's -c/w Ancef q8 -Dressing to be changed tomorrow -Stable per podiatry
[2016-10-11 08:07] LABS: HEMATOCRIT 29.7 % (35.0-51.0); MEAN CORPUSCULAR HEMOGLOBIN 29.4 pg (27.0-31.0); MEAN CORPUSCULAR HGB CONC 33.1 g/dL (33.0-37.0); RED CELL DISTRIBUTION WIDTH 13.7 % (11.5-14.5)
[2016-10-11 08:19] VITALS: RESP 20
[2016-10-11] MEDS: Pantoprazole 40 mg EC Tab PO SCH (08:27)
[2016-10-11 08:34] LABS: BLOOD UREA NITROGEN 22 mg/dl (9-20); CALCIUM 8.5 mg/dL (8.4-10.2); CARBON DIOXIDE 27 mmol/L (22-30); CHLORIDE 104 mmol/L (98-107); GFR AFRICAN-AMERICAN > 60; GLUCOSE,RANDOM 96 mg/dL (75-110); POTASSIUM 3.5 MMOL/L (3.6-5.0); SODIUM 137 mmol/l (132-148)
[2016-10-11] MEDS ORDERED: Multivitamin With Minerals Tab PO SCH (09:00)
[2016-10-11 09:24] LABS: WHITE BLOOD COUNT 11.5 K/uL (4.8-10.8)
[2016-10-11] MEDS: Enoxaparin 40 mg Syringe SC SCH (11:05)
[2016-10-11] MEDS ORDERED: Potassium Chloride 20 mEq ER Tab PO ONE (13:05)
--- NOTE | 2016-10-11 13:25 | CP.PCM.DIS ---
Provider - Provider Date of Admission: 10/07/16 14:12 Attending physician: Kieran Dai MD Time Spent in preparation of Discharge (in minutes): 45 Diagnosis - Discharge Diagnosis (1) Trimalleolar fracture of left ankle Status: Acute Comment: POD #1 doing well, management as per Podiatry. (2) DVT prophylaxis Status: Acute Comment: Lovenox 40mg, SC, Daily (3) HTN (hypertension) Status: Chronic Comment: Stable, continue all home medications (4) Chronic lower back pain Status: Chronic Comment: Chronic, stable (5) Psychiatric disorder Status: Chronic Comment: Chronic, stable Hospital Course - Lab Results Lab Results: Most Recent Lab Values WBC 11.5 K/uL (4.8-10.8) H D 10/11/16 07:45 RBC 3.34 Mil/uL (4.40-5.90) L 10/11/16 07:45 Hgb 9.8 g/dL (12.0-18.0) L D 10/11/16 07:45 Hct 29.7 % (35.0-51.0) L 10/11/16 07:45 MCV 89.0 fl (80.0-94.0) 10/11/16 07:45 MCH 29.4 pg (27.0-31.0) 10/11/16 07:45 MCHC 33.1 g/dL (33.0-37.0) 10/11/16 07:45 RDW 13.7 % (11.5-14.5) 10/11/16 07:45 Plt Count 162 K/uL (130-400) 10/11/16 07:45 PT 11.6 SECONDS (9.6-11.2) H 10/10/16 05:40 INR 1.12 (0.92-1.08) H 10/10/16 05:40 APTT 30.6 SECONDS (23.3-32.5) 10/06/16 23:10 Sodium 137 mmol/l (132-148) 10/11/16 07:45 Potassium 3.5 MMOL/L (3.6-5.0) L 10/11/16 07:45 Chloride 104 mmol/L (98-107) 10/11/16 07:45 Carbon Dioxide 27 mmol/L (22-30) 10/11/16 07:45 Anion Gap 10 (10-20) 10/11/16 07:45 BUN 22 mg/dl (9-20) H 10/11/16 07:45 Creatinine 0.9 mg/dL (0.8-1.5) 10/11/16 07:45 Est GFR ( Amer) > 60 10/11/16 07:45 Est GFR (Non-Af Amer) > 60 10/11/16 07:45 Random Glucose 96 mg/dL (75-110) 10/11/16 07:45 Calcium 8.5 mg/dL (8.4-10.2) 10/11/16 07:45 Total Bilirubin 0.8 mg/dl (0.2-1.3) 10/08/16 06:10 AST 31 U/L (17-59) 10/08/16 06:10 ALT 44 U/L (21-72) 10/08/16 06:10 Alkaline Phosphatase 68 U/L (38-126) 10/08/16 06:10 Troponin I 0.0130 ng/mL (0.00-0.120) 10/07/16 21:15 Total Protein 6.7 G/DL (6.3-8.2) 10/08/16 06:10 Albumin 3.6 g/dL (3.5-5.0) 10/08/16 06:10 Globulin 3.0 gm/dL (2.2-3.9) 10/08/16 06:10 Albumin/Globulin Ratio 1.2 (1.0-2.1) 10/08/16 06:10 Vitamin B12 729 pg/mL (239-931) 10/07/16 08:35 TSH 3rd Generation 1.36 mIU/ML (0.46-4.68) 10/07/16 08:35 - Hospital Course Hospital Course: Patient seen and examined at bedside this morning with attending. No acute complaints, denies SOB, chest pain. Admitted for acute fracture after falling, underwent repair by Podiatry and is doing well. In addition, he injured LEFT knee ligaments that are being conservatively treated by Dr Hayes with knee immobilizer and follow up as an outpatient. He is medically stable for transfer to TCU. Discharge Exam - Head Exam Head Exam: ATRAUMATIC, NORMAL INSPECTION - Eye Exam Eye Exam: EOMI, PERRL - ENT Exam ENT Exam: Mucous Membranes Moist, Normal Exam - Neck Exam Neck exam: Normal Inspection - Respiratory Exam Respiratory Exam: Clear to PA & Lateral, NORMAL BREATHING PATTERN. absent: Rales, Wheezes - Cardiovascular Exam Cardiovascular Exam: REGULAR RHYTHM. absent: JVD - GI/Abdominal Exam GI & Abdominal Exam: Normal Bowel Sounds, Soft. absent: Tenderness - Extremities Exam Extremities exam: normal capillary refill, pedal pulses present (LEFT DP palpable) Additional comments: LEFT knee immobilizer in place LEFT ankle splint/ha wrap - Neurological Exam Neurological exam: Alert, Oriented x3 - Psychiatric Exam Psychiatric exam: Normal Affect, Normal Mood - Skin Skin Exam: Normal Color, Warm Discharge Plan - Discharge Medications Prescriptions: oxyCODONE/Acetaminophen [Percocet 5/325 mg Tab] 1 ea PO Q4 PRN #30 tab PRN Reason: Pain, Moderate (4-7) - Follow Up Plan Condition: IMPROVED Disposition: REHAB FACILITY/REHAB UNIT Instructions: Ankle Fracture (DC), ORIF of an Ankle Fracture (DC) Referrals: Kieran Dai MD [Staff Provider] - Austin Dominguez DPM [Doctor Podiatric Medicine] -
[2016-10-11 13:53] VITALS: O2SAT 97
[2016-10-11 16:59] VITALS: BP 138/87; PULSE 65; TEMP 98.8
--- NOTE | 2016-10-11 20:26 | OP ---
PROCEDURE DATE: 10/10/2016 SURGEON: Austin Dominguez DPM, FACFAS ASSISTANTS: 1. Jesús Kerr DPM, PGY-3. 2. Keegan Andrew DPM, PGY-2. 3. Michi Avila DPM, PGY-2. 4. Edmar Dooley DPM, PGY-2. BRUSH OR BROOM CUTTER: Dr. Young. PREOPERATIVE DIAGNOSIS: Left ankle displaced trimalleolar ankle fracture. POSTOPERATIVE DIAGNOSIS: Left ankle trimalleolar fracture. NAME OF PROCEDURE: 1) Left ankle open reduction with internal fixation of the left ankle fracture - fibular fracture 2) Left ankle open reduction with internal fixation of the left ankle fracture - medial malleolar fracture. INDICATIONS: This is a 61-year-old male with the aforementioned diagnosis. The patient, this past Friday night, 10/06/2016, presented to the [facility] Emergency Room with a displaced trimalleolar left ankle fracture. While in the Emergency Room, the patient was placed under conscious sedation and his ankle fracture was closed reduced and placed in a bivalve cast. Today, the patient has signed the consent form after careful explanation of all the risks, benefits, complications, and alternatives to the surgical procedure. There were no guarantees that were made, given, nor implied. PREPARATION: The patient was brought into the operating room, placed on the operative room table in the supine position. A well-padded pneumatic thigh tourniquet was placed on the patient's left thigh at the upper 1/3 thigh level. After induction of general anesthesia, the left lower extremity was then prepped and draped in usual sterile manner. A timeout was performed. An Esmarch bandage was utilized to exsanguinate the left foot, ankle, and lower leg. The pneumatic thigh tourniquet was then inflated to 350 mmHg and then the procedure began. PROCEDURE: 1) Left ankle open reduction with internal fixation of the left ankle fracture - fibular fracture Attention was now directed to the left lower extremity at the level of the fibular malleolus where an approximately 20 cm linear longitudinal incision was made overlying the distal portion of the fibula. The incision was deepened through the soft tissues utilizing a combination of sharp and blunt dissection. Care was taken to identify and retract all vital neurovascular structures and the peroneal tendons which were identified and mobilized out of the surgical field. All bleeders were ligated or cauterized as deemed necessary. Our incision was now deepened to the level of the fibular periosteum, which once encountered was incised with a fresh #15 blade. The periosteal tissues were dissected free of their osseous attachments, both anteriorly and posteriorly, thus exposing the distal aspect of the fibula, common fibular malleolus, and the distal fibular fracture. Next, the fracture site of the distal fibula was now inspected and noted to be comminuted with extensive hemorrhagic tissue noted within the fracture sites. The comminuted section encompassed the distal anterior fibular-tibia ligament. Next, the large comminuted pieces were removed from the surgical field and placed on the surgical table in a cup of normal sterile saline solution. Next, the main capital fragment was now distracted with the use of point reduction bone clamps and the fracture site was then inspected and then debrided of any hemorrhagic soft tissue and periosteal tissues. Next, the distal fragment of the fibula was now grasped again with point reduction bone clamps and distracted out to a normal and anatomic fibular length. Reconstruction of the comminuted bone segments was completed. Next, a Synthes 2.7 VA-LCP distal fibular plate with 7 holes was now brought into the operative field and appropriately contoured to the patient's fibular anatomy. Next, with the distal fibula held out to length and at an appropriate anatomical alignment to the ankle joint, the now contoured distal fibular plate was now applied over the lateral aspect of the distal fibula. Next, following standard AO principles and techniques, 4 Synthes 2.7 mm, 10 mm length locking screws are now placed within the distal fibula. Next, with the distal fibula held out to length and the distal fibula plate applied with screws to the distal fibula, the proximal portion of the plate following AO principles and techniques were filled with 4 Synthes 2.7 mm non-locking screws. All screws were 18 mm in length. Next, the bone reduction forceps was now removed and radiographs were taken of the left ankle. The distal fibula was noted to be brought out to length and in an appropriate anatomical alignment in relation to the ankle joint. Next, again multiple radiographs were taken to confirm normal anatomical alignment of the distal fibula and appropriate alignment of the internal hardware placed along the distal fibula. Next, attention was now directed to the ankle syndesmosis. Direct palpation of the ankle syndesmosis revealed a rupture of the distal aspect of the syndesmosis. Next, the Arthrex syndesmosis TightRope system was now sterilely passed onto the operative field. Next, utilizing intraoperative fluoroscopy, the guidewire from the Arthrex TightRope system was passed through the lateral aspect of the fibula through the proximal oblong hole of the distal fibular plate. The guidewire was then continued through both the medial and lateral cortices of the tibia, thus exiting the medial aspect of the patient's right ankle. Proper position of the guidewire was then verified visually and with the use of intraoperative fluoroscopy. Next, the cannulated drill from the Arthrex TightRope system was now placed over the guidewire with the soft tissue sleeve. Next, the medial and lateral cortices of the fibula and then the tibia were then drilled. The drill bit and guidewire were then removed. Next, the red guidewire protective sleeve was now inserted into our drill hole to clean out any remaining debris which may have been present. Next, the needle from the TightRope system was now passed through the lateral and medial cortices of the fibula and then through the lateral and medial cortices of the tibia, exiting at the medial aspect of the patient's left ankle. The needle was then cut free from the suture and the medial and lateral buttons of the Arthrex TightRope system were now manipulated utilizing the sutures to be flush against their respective bones. Proper positioning of the buttons was then verified utilizing intraoperative fluoroscopy and visual confirmation. Careful attention was paid in order to feed the lateral button appropriately within the proximal oblong hole of the distal fibula plate. Once proper positioning was again confirmed, the extra sutures were then cut and removed from the surgical field. 2) Left ankle open reduction with internal fixation of the left ankle fracture - medial malleolar fracture. Next, attention now directed to the medial aspect of the patient's left ankle where approximately a 6-7 cm linear longitudinal incision was made overlying the patient's medial malleolar fracture. The incision was deepened to the subcutaneous tissues utilizing combination of sharp and blunt dissection. Care was taken to identify and retract all vital neurovascular structures and cauterized and/or ligated all bleeders as deemed necessary. During the course of our dissection, the great saphenous vein was encountered and then mobilized and retracted out of the surgical field. Next, our incision was now carried down to the level of the periosteum over the medial malleolus. Once the level was encountered, a fresh #15 blade was now utilized to make a linear periosteal incision overlying the medial malleolar fracture and the medial malleolus. The periosteal tissues were carefully dissected free from their osseous attachments , both anterior and posterior, thus revealing the medial malleolus and its concomitant fracture into the surgical field. Next, the surgical site was irrigated with a copious amount of normal sterile saline solution. Next, the distal fragment from the medial malleolar fracture was distracted and any hemorrhagic and periosteal tissues within the fracture site were then debrided and cleaned as necessary. Next, utilizing forceps and a bone hook, the medial malleolar fracture fragment was manually reduced into a more anatomic and proper alignment. Next, 2 parallel K wires from the Synthes 4.0 mm cannulated screw set were now inserted from inferior to superior across the fracture site. Next, positioning of the medial malleolar fracture fragment and the K-wires were now verified utilizing intraoperative fluoroscopy. Visual inspection of the ankle joint and the medial gutter revealed a well-aligned medial malleolar fracture fragment. Next, the K-wires were now measured and two 4.0 mm, 34 mm length Synthes cannulated screws were now inserted over their respective guidewires across the fracture site under standard AO principles and techniques with excellent compression noted. After insertion of the screws, the guidewires were then removed and discarded. The medial malleolar fracture site was now inspected and the fracture line was noted to be well aligned and the ankle joint was noted to be well maintained. C arm images revealed excellent anatomic alignment including alignment of he small posterior malleolar fragment. Next, both the medial and lateral surgical sites were now irrigated with a copious amount of normal sterile saline solution. The medial and lateral surgical sites were now closed in tandem. The periosteal and subcutaneous tissues were reapproximated with #2-0 Vicryl suture. The subcutaneous tissues were reapproximated with #3-0 Vicryl suture. The subcuticular tissues were reapproximated with #4-0 Vicryl suture and then the skin was reapproximated with #4-0 Prolene suture in an interrupted horizontal mattress fashion. Next, the patient now received a postoperative injection consisting of 10 mL of 0.5% Marcaine plain in the form of a saphenous nerve block to the left lower extremity. Next, the foot was now cleansed and dried. The medial and lateral surgical sites were now dressed with Betadine and Adaptic followed by dry sterile dressings followed by a Daugherty compression dressing and a standard posterior splint with the ankle held at a 90 degree angle relative to the leg. Next, the tourniquet and drapes were deflated and removed. The patient now received a standard popliteal nerve block via the anesthesia team. POSTOPERATIVE CONDITION: The patient tolerated the anesthesia and the procedure well and was escorted to PACU with his vital signs stable and his neurovascular status intact to the left lower extremity as noted by instantaneous hyperemia to all 5 digits of the left foot. The patient will be nonweightbearing to the left lower extremity. Upon clearance from the PACU, the patient will be returned to his inhouse hospital bed where he will be rounded upon by the podiatry team and Dr. Dominguez. The patient upon discharge from the hospital will follow up with Dr. Dominguez in his office. Jesús Kerr DPM NITO Castillo DPM cc: [id number] TT: 10/11/2016 20:25:11 kaycee SHANE
--- NOTE | 2016-10-12 10:58 | CP.PCM.CON ---
History of Present Illness - History of Present Illness History of Present Illness: 61 yo Male w/ PMH= HTN, hypercholest, depression, anxiety presented to the ER at [facility] on 10/06/16 w/ L ankle pain and deformity as well as L knee pain and swelling. He states that he felt dizzy and fell landing on his L LE. He had immediate 10 /10 pain localized to the L ankle with inability to WB on LLE. He also noticed L knee swelling and instability but not much pain. He recently underwent L-spine microdiscectomy 3 weeks [employer] by an outside spine or rehab doctor as well as laminectomy 5 years ago by a spine surgeon he doesn' t recall. He was brought to the ER at [facility] and after evaluation by ER staff and review of imaging, he was dx'd with L ankle displaced trimal fx. Podiatry consult was placed and he was closed reduced by Podiatry resident and placed in splint. He was admitted to Dr. Kieran Dai service for definitive care and treatment. Pt also adds the subjective feeling of episodic R ankle/ foot weakness that occurs sporadic since the spine surgery 5 years ago. x-rays taken in ER: L ankle: displaced trimal fx with medial - posterior subluxation of talus L knee: no obvious deformity or fx, mild DJD L-spine: s/p laminectomy years ago Orthopedic consultation was placed and I evaluated the pt as an inpt at [facility] 6th floor on 10/07/16 evening. Past Patient History - Past Medical History & Family History Past Medical History?: Yes - Past Social History Smoking Status: Current Some Days Smoker - CARDIAC Hx Hypercholesterolemia: Yes Hx Hypertension: Yes - PULMONARY Hx Respiratory Disorders: No - NEUROLOGICAL Hx Neurological Disorder: No - HEENT Hx HEENT Problems: No - RENAL Hx Chronic Kidney Disease: No - ENDOCRINE/METABOLIC Hx Endocrine Disorders: No - HEMATOLOGICAL/ONCOLOGICAL Hx Blood Disorders: No Hx AIDS: No Hx Human Immunodeficiency Virus (HIV): No - INTEGUMENTARY Hx Dermatological Problems: No - MUSCULOSKELETAL/RHEUMATOLOGICAL Hx Falls: Yes Hx Herniated Disk: Yes - GASTROINTESTINAL Hx Gastrointestinal Disorders: No - GENITOURINARY/GYNECOLOGICAL Hx Genitourinary Disorders: No - PSYCHIATRIC Hx Anxiety: Yes Hx Depression: Yes - SURGICAL HISTORY Other/Comment: laminectomy 2014,herniated disc surgery - ANESTHESIA Hx Anesthesia: Yes Hx Anesthesia Reactions: No Hx Malignant Hyperthermia: No Meds Home Medications: Home Medication List Medication Instructions Recorded Confirmed Type Atorvastatin [Lipitor] 20 mg PO DAILY tab 10/11/16 Rx Chlorthalidone [Hygroton] 25 mg PO DAILY tab 10/11/16 Rx Enoxaparin [Lovenox] 40 mg SC DAILY syr 10/11/16 Rx FLUoxetine [Prozac] 20 mg PO 1600 cap 10/11/16 Rx FLUoxetine [Prozac] 40 mg PO DAILY cap 10/11/16 Rx Gabapentin [Neurontin] 800 mg PO 0000,0900,1600 cap 10/11/16 Rx Metoprolol Tartrate [Lopressor] 100 mg PO 1600 tab 10/11/16 Rx Metoprolol Tartrate [Lopressor] 200 mg PO DAILY tab 10/11/16 Rx Mirtazapine [Remeron] 15 mg PO HS tab 10/11/16 Rx Multimineral/Multivitamin 1 tab PO DAILY tab 10/11/16 Rx [Therapeutic-M Tab] Pantoprazole [Protonix EC Tab] 40 mg PO DAILY ect 10/11/16 Rx Valsartan [Diovan] 320 mg PO DAILY tab 10/11/16 Rx amLODIPine [Norvasc] 10 mg PO 0000 tab 10/11/16 Rx buPROPion SR [Wellbutrin] 100 mg PO 0900,1600 t12 10/11/16 Rx cloNIDine [Catapres] 0.1 mg PO 0000,1600 tab 10/11/16 Rx cloNIDine [Catapres] 0.2 mg PO DAILY tab 10/11/16 Rx clonazePAM [Klonopin] 1 mg PO 0000,0900,1600 tab 10/11/16 Rx hydrALAZINE [Apresoline] 50 mg PO 0000 tab 10/11/16 Rx hydrALAZINE [Apresoline] 100 mg PO DAILY tab 10/11/16 Rx oxyCODONE/Acetaminophen [Percocet 1 ea PO Q4 PRN #30 tab 10/11/16 Rx 5/325 mg Tab] tiZANidine [Zanaflex] 1 mg PO Q12 PRN tab 10/11/16 Rx Allergies/Adverse Reactions: Allergies Allergy/AdvReac Type Severity Reaction Status Date / Time No Known Allergies Allergy Verified 10/11/16 17:09 Physical Exam - Extremities Exam Additional comments: secondary survey done, no (+) findings aside from the LLE trauma. Back: - ttp, - swelling/warmth/redness, all surgical incisions well healed B/L LE: sensory intact L2-S1 motor intact L2-S1 Right Lower Extremity: - ttp, skin intact, - swelling/warmth/redness, +1 instability at ATFL R ankle FROM at all joints w/o pain + 5/5 motor strength Hip flex/ext, knee flex/ext, ankle df/pf, toes up & down sensory intact L2-S1, DPN/TN/SPN, 2+ DP Left Lower Extremity: ++++ ttp at ankle and mild ttp at posterior lateral knee Ankle: well padded splint is c/d/i Knee: +++ effusion, ++ ttp mild at posterior lateral knee, skin intact, - warmth /reddness ROM at knee limited due to pain at high flexion, 0-120 + 5/5 motor strength Hip flex/ext, knee flex/ext, toes up & down sensory intact L2-S1, DPN/TN/SPN, 2+ DP Results - Vital Signs Recent Vital Signs: Last Vital Signs Temp 98.8 F 10/11/16 16:59 Pulse 65 10/11/16 16:59 Resp 20 10/11/16 16:59 BP 138/87 10/11/16 16:59 Pulse Ox 97 10/12/16 10:50 - Labs Result Diagrams: 10/11/16 07:45 10/11/16 07:45 Assessment & Plan (1) Vasovagal near syncope Assessment and Plan: 61 yo Male, s/p fall due to syncopy on 10/06/16 presented to the ER at [facility] with L knee / L ankle pain Dx= L knee: #1 effusion #2 most likely stress fracture #3 lateral meniscal tear #4 ACL tear L ankle: #1 displaced trimal fracture #2 dislocation/subluxation L-spine: #1 Deg Disc Dz #2 s/p microdisc 3 weeks ago and laminectomy 5 years ago PLAN: L ankle: -under the care of the Podiatry team, agree with need for ORIF once swelling acceptable L knee: -clinically, most likely stress fracture w/ meniscal tear, effusion, possible ACL tear -recommend knee immobilizer for now -NWB LLE -recommend MRI L knee to evaluate further -will follow L-spine: -clinically stable -spine is not my speciality but I don't see any general ortho contraindications to lying supine during the L ankle ORIF by podiatry -if more detailed recommendations about the L-spine are needed, consider neurosurgery / spine surgery consult R ankle: -clinically, no weakness detected, this is a more subjective complaint of episodic weakness and ATFL instability / rolling of ankle -should be focus of care with PT as this will be his WB extremity post-op and as he recovers -consider AFO to give confidence or simple ankle brace for ambulation Status: Acute (2) Effusion, left knee Status: Acute
--- NOTE | 2016-10-12 11:45 | CP.PCM.CON ---
History of Present Illness - History of Present Illness History of Present Illness: 61 yo Male w/ PMH= HTN, hypercholest, depression, anxiety presented to the ER at [facility] on 10/06/16 w/ L ankle pain and deformity as well as L knee pain and swelling. He states that he felt dizzy and fell landing on his L LE. He had immediate 10 /10 pain localized to the L ankle with inability to WB on LLE. He also noticed L knee swelling and instability but not much pain. He recently underwent L-spine microdiscectomy 3 weeks [employer] by an outside spine or rehab doctor as well as laminectomy 5 years ago by a spine surgeon he doesn' t recall. He was brought to the ER at [facility] and after evaluation by ER staff and review of imaging, he was dx'd with L ankle displaced trimal fx. Podiatry consult was placed and he was closed reduced by Podiatry resident and placed in splint. He was admitted to Dr. Kieran Dai service for definitive care and treatment. Pt also adds the subjective feeling of episodic R ankle/ foot weakness that occurs sporadic since the spine surgery 5 years ago. x-rays taken in ER: L ankle: displaced trimal fx with medial - posterior subluxation of talus L knee: no obvious deformity or fx, mild DJD L-spine: s/p laminectomy years ago Orthopedic consultation was placed and I evaluated the pt as an inpt at [facility] 6th floor on 10/07/16 evening. Re-evaluated on 10/11/16 at TCU at [facility]. Post-op after L ankle trimal fx ORIF. MRI L knee done at [facility] on 10/08/16 was read as: 1. Complete rupture of the anterior cruciate ligament. 2. Prominent bone bruising and or subchondral fracturing of the mid lateral femoral condyle at the articular surface as well as the posterior lateral proximal tibial plateau and posteromedial proximal tibial plateau. Additional curvilinear fracture deformity at the level of the fibular head. 3. Prominent signal abnormality seen within the posterior lateral corner of the knee concerning for a posterior-lateral corner injury. This includes a fracture deformity of the posterior lateral proximal tibia as well as a fracture deformity of the proximal fibula. In addition, there is a high grade strain versus partial tear of the distal attachment of the biceps femoris tendon as well as the distal attachment of the fibular collateral ligament. Signal abnormality is also noted at the insertion of the popliteus tendon and likely arcuate ligament. 4. Prominent osteochondral lesion with overlying cartilage fibrillation and loss measuring 1.7 centimeters at the mid to posterior medial femoral condyle at the articular surface. 5. Blunting of the tip of the body and posterior horn of the medial meniscus suggestive for a tear. 6. Linear increased signal noted at the junction of the body and posterior horn of the lateral meniscus concerning for a possible tear. 7. High-grade sprain versus partial tear of the medial collateral ligament. 8. Prominent cartilage thinning and loss overlying the lateral patellar facet extending to the subchondral bone with signal change in the adjacent marrow suggestive for osteochondral change. 9. High-grade strain versus partial tearing of the medial and lateral patellar retinaculum. 10. Cartilage thinning and loss involving the medial and lateral compartments of the femorotibial joint space. 11. Large suprapatellar joint effusion with associated synovial debris and hypertrophy. Suggestion of a possible small layering hemarthrosis. Moderate posterior Pérez's cyst. He has been compliant with the knee immobilizer to the L knee. Denies pain at L knee. He underwent ORIF L ankle on 10/10/16, tolerated procedure well by Podiatry team , Dr. Dominguez. He denies any L-spine/LBP or changes in RLE post-op. . Past Patient History - Past Medical History & Family History Past Medical History?: Yes - Past Social History Smoking Status: Current Some Days Smoker - CARDIAC Hx Hypercholesterolemia: Yes Hx Hypertension: Yes - PULMONARY Hx Respiratory Disorders: No - NEUROLOGICAL Hx Neurological Disorder: No - HEENT Hx HEENT Problems: No - RENAL Hx Chronic Kidney Disease: No - ENDOCRINE/METABOLIC Hx Endocrine Disorders: No - HEMATOLOGICAL/ONCOLOGICAL Hx Blood Disorders: No Hx AIDS: No Hx Human Immunodeficiency Virus (HIV): No - INTEGUMENTARY Hx Dermatological Problems: No - MUSCULOSKELETAL/RHEUMATOLOGICAL Hx Falls: Yes Hx Herniated Disk: Yes - GASTROINTESTINAL Hx Gastrointestinal Disorders: No - GENITOURINARY/GYNECOLOGICAL Hx Genitourinary Disorders: No - PSYCHIATRIC Hx Anxiety: Yes Hx Depression: Yes - SURGICAL HISTORY Other/Comment: laminectomy 2014,herniated disc surgery - ANESTHESIA Hx Anesthesia: Yes Hx Anesthesia Reactions: No Hx Malignant Hyperthermia: No Meds Home Medications: Home Medication List Medication Instructions Recorded Confirmed Type Atorvastatin [Lipitor] 20 mg PO DAILY tab 10/11/16 Rx Chlorthalidone [Hygroton] 25 mg PO DAILY tab 10/11/16 Rx Enoxaparin [Lovenox] 40 mg SC DAILY syr 10/11/16 Rx FLUoxetine [Prozac] 20 mg PO 1600 cap 10/11/16 Rx FLUoxetine [Prozac] 40 mg PO DAILY cap 10/11/16 Rx Gabapentin [Neurontin] 800 mg PO 0000,0900,1600 cap 10/11/16 Rx Metoprolol Tartrate [Lopressor] 100 mg PO 1600 tab 10/11/16 Rx Metoprolol Tartrate [Lopressor] 200 mg PO DAILY tab 10/11/16 Rx Mirtazapine [Remeron] 15 mg PO HS tab 10/11/16 Rx Multimineral/Multivitamin 1 tab PO DAILY tab 10/11/16 Rx [Therapeutic-M Tab] Pantoprazole [Protonix EC Tab] 40 mg PO DAILY ect 10/11/16 Rx Valsartan [Diovan] 320 mg PO DAILY tab 10/11/16 Rx amLODIPine [Norvasc] 10 mg PO 0000 tab 10/11/16 Rx buPROPion SR [Wellbutrin] 100 mg PO 0900,1600 t12 10/11/16 Rx cloNIDine [Catapres] 0.1 mg PO 0000,1600 tab 10/11/16 Rx cloNIDine [Catapres] 0.2 mg PO DAILY tab 10/11/16 Rx clonazePAM [Klonopin] 1 mg PO 0000,0900,1600 tab 10/11/16 Rx hydrALAZINE [Apresoline] 50 mg PO 0000 tab 10/11/16 Rx hydrALAZINE [Apresoline] 100 mg PO DAILY tab 10/11/16 Rx oxyCODONE/Acetaminophen [Percocet 1 ea PO Q4 PRN #30 tab 10/11/16 Rx 5/325 mg Tab] tiZANidine [Zanaflex] 1 mg PO Q12 PRN tab 10/11/16 Rx Allergies/Adverse Reactions: Allergies Allergy/AdvReac Type Severity Reaction Status Date / Time No Known Allergies Allergy Verified 10/11/16 17:09 Physical Exam - Extremities Exam Additional comments: secondary survey done, no (+) findings aside from the LLE trauma. Back: - ttp, - swelling/warmth/redness, all surgical incisions well healed B/L LE: sensory intact L2-S1 motor intact L2-S1 Right Lower Extremity: - ttp, skin intact, - swelling/warmth/redness, +1 instability at ATFL R ankle FROM at all joints w/o pain + 5/5 motor strength Hip flex/ext, knee flex/ext, ankle df/pf, toes up & down sensory intact L2-S1, DPN/TN/SPN, 2+ DP Left Lower Extremity: ++++ ttp at ankle and mild ttp at posterior lateral knee Ankle: well padded splint is c/d/i Knee: +++ effusion, ++ ttp mild at posterior lateral knee, skin intact, - warmth /reddness ROM at knee limited due to pain at high flexion, 0-120 3+ anterior drawer/Luke - posterior lateral corner instability/PLC drawer -posterior drawer/ reverse Luke 2+ pivot shift/ - reverse pivot shift ++ Katty + 5/5 motor strength Hip flex/ext, knee flex/ext, toes up & down sensory intact L2-S1, DPN/TN/SPN, 2+ DP Results - Vital Signs Recent Vital Signs: Last Vital Signs Temp 98.8 F 10/11/16 16:59 Pulse 65 10/11/16 16:59 Resp 20 10/11/16 16:59 BP 138/87 10/11/16 16:59 Pulse Ox 97 10/12/16 10:50 - Labs Result Diagrams: 10/11/16 07:45 10/11/16 07:45 Assessment & Plan (1) Vasovagal near syncope Assessment and Plan: 61 yo Male, s/p fall due to syncopy on 10/06/16 presented to the ER at [facility] with L knee / L ankle pain Dx= L knee: #1 effusion improved #2 non-displaced acute fracture of posterior lateral tibial plateau and fibular head #3 ACL tear #4 medial and lateral meniscal tears #5 partial tears of MCL and posterior lateral corner/ biceps long head L ankle: #1 displaced trimal fracture #2 dislocation/subluxation s/p ORIF by podiatry on 10/10/16 L-spine: #1 Deg Disc Dz #2 s/p microdisc 3 weeks ago and laminectomy 5 years ago PLAN: L ankle: -under the care of the Podiatry team L knee: -clinically and confirmed on MRI, non-displaced fx's of tibial plateau and fibular head, MMT, LMT, ACL tear, partial tears of MCL/PLC -recommend knee immobilizer for now, difficult to immobilize with split post op on ipsilateral ankle -NWB LLE -once ankle can be advanced to short leg cast, podiatry team should try to make the cast short, up to mid millan to allow for custom ACL brace for knee -in the interim, use knee immobilizer -PT can remove to allow passive ROM of knee during sessions -will follow L-spine: -clinically stable -spine is not my speciality but I don't see any general ortho contraindications to lying supine during the L ankle ORIF by podiatry -if more detailed recommendations about the L-spine are needed, consider neurosurgery / spine surgery consult R ankle: -clinically, no weakness detected, this is a more subjective complaint of episodic weakness and ATFL instability / rolling of ankle -should be focus of care with PT as this will be his WB extremity post-op and as he recovers -consider AFO to give confidence or simple ankle brace for ambulation Thank you for allowing me to contribute to the care of your patient. Please contact me with any updates, questions, concerns, . Mukesh Gudino MD Orthopedic Surgery [phone] Status: Acute (2) Effusion, left knee Status: Acute
== END 2016-10-11 18:14 | DRG 493 ==
LOC: H.ER 20:39 → H.ERHOLD 23:42 → H.MEDSURG1 10-07 00:57 → OBSVTOIN 10-07 14:12
PROVIDERS: ADMIT Internal Medicine; ATTEND Internal Medicine
PROC: 0QSK04Z Reposition Left Fibula with Internal Fixation Device, Open Approach (ICD-10-PCS; principal; 2016-10-11)
DX: S82.852A Displaced trimalleolar fracture of left lower leg, initial encounter for closed fracture (principal); S82.142A Displaced bicondylar fracture of left tibia, initial encounter for closed fracture; I10 Essential (primary) hypertension; W18.30XA Fall on same level, unspecified, initial encounter; E78.00 Pure hypercholesterolemia, unspecified; Y93.9 Activity, unspecified; Y99.9 Unspecified external cause status; F32.9 Major depressive disorder, single episode, unspecified; G89.29 Other chronic pain; M21.371 Foot drop, right foot; F41.8 Other specified anxiety disorders; Y92.009 Unspecified place in unspecified non-institutional (private) residence as the place of occurrence of the external cause; Z95.2 Presence of prosthetic heart valve; E78.5 Hyperlipidemia, unspecified; S83.512A Sprain of anterior cruciate ligament of left knee, initial encounter; S83.282A Other tear of lateral meniscus, current injury, left knee, initial encounter; S83.242A Other tear of medial meniscus, current injury, left knee, initial encounter

== ENCOUNTER 2016-10-11 16:06 | Inpatient (IN) | payer OTHER, BC ==
[2016-10-11 17:09] VITALS: BMI 30.8
[2016-10-11] MEDS ORDERED: Alum-Mag Hydrox-Simethicone Susp (30 mL) PO PRN (18:47)
--- NOTE | 2016-10-12 08:22 | CP.PCM.PN ---
Subjective - Date & Time of Evaluation Date of Evaluation: 10/12/16 Time of Evaluation: 08:19 - Subjective Subjective: 61 y/o male seen at bedside with attending Dr. Dominguez 2 days s/p left ankle ORIF. Patient resting comfortably in TCU in NAD and AAOx3. Patient denies any acute events overnight. His leg is resting on 2 pillows, dressing is clean,dry, intact. Patient states that the pain is well-controlled. Patient states that he is a little depressed. Patient denies any n/v/f/c/d/sob. Objective - Vital Signs/Intake and Output Vital Signs (last 24 hours): Temp Pulse Resp BP Pulse Ox 98.2 F 73 20 140/82 99 10/12/16 08:17 10/12/16 08:17 10/12/16 08:17 10/12/16 08:17 10/12/16 08:17 - Medications Medications: Current Medications Al Hydrox/Mg Hydrox/Simethicone (Maalox Plus 30 Ml) 30 ml PO Q6 PRN PRN Reason: Indigestion / Heartburn Last Admin: 10/11/16 19:21 Dose: 30 ml Amlodipine Besylate (Norvasc) 10 mg PO 0000 [facility] Last Admin: 10/12/16 00:20 Dose: 10 mg Atorvastatin Calcium (Lipitor) 20 mg PO DAILY [facility] Bupropion HCl (Wellbutrin) 100 mg PO 0900,1600 [facility] Chlorthalidone (Hygroton) 25 mg PO DAILY [facility] Clonazepam (Klonopin) 1 mg PO 0000,0900,1600 [facility] Last Admin: 10/12/16 00:20 Dose: 1 mg Clonidine HCl (Catapres) 0.1 mg PO 0000,1600 [facility] Last Admin: 10/12/16 00:19 Dose: 0.1 mg Clonidine HCl (Catapres) 0.2 mg PO DAILY [facility] Enoxaparin Sodium (Lovenox) 40 mg SC DAILY [facility] PRN Reason: Protocol Fluoxetine HCl (Prozac) 20 mg PO 1600 [facility] Fluoxetine HCl (Prozac) 40 mg PO DAILY [facility] Gabapentin (Neurontin) 800 mg PO 0000,0900,1600 [facility] Last Admin: 10/12/16 00:20 Dose: 800 mg Hydralazine HCl (Apresoline) 50 mg PO 0000 [facility] Last Admin: 10/12/16 00:18 Dose: 50 mg Hydralazine HCl (Apresoline) 100 mg PO DAILY [facility] Ketorolac Tromethamine (Toradol) 30 mg IVP Q6 PRN PRN Reason: Pain, moderate (4-7) Last Admin: 10/11/16 19:20 Dose: 30 mg Metoprolol Tartrate (Lopressor) 100 mg PO 1600 [facility] Metoprolol Tartrate (Lopressor) 200 mg PO DAILY [facility] Mirtazapine (Remeron) 15 mg PO HS [facility] Last Admin: 10/11/16 22:17 Dose: 15 mg Multivitamins/Minerals (Therapeutic-M Tab) 1 tab PO DAILY [facility] Pantoprazole Sodium (Protonix Ec Tab) 40 mg PO DAILY [facility] Tizanidine HCl (Zanaflex) 1 mg PO Q12 PRN PRN Reason: SPASM Valsartan (Diovan) 320 mg PO DAILY [facility] - Constitutional Appears: Well, Non-toxic, No Acute Distress - Extremities Exam Additional comments: left foot focused: Vasc: DP/PT 2/4, TG wnl, CFT < 3 sec to all digits, edema neuro: grossly intact derm: mild edema, mild erythema, deroofed fracture blister noted medially, surgical incision site on medial nad lateral aspect of left ankle well-coapted, no dehiscence, sutures are intact, no purulence, no drainage, no active bleeding , no acute clinical signs of infection ortho: mild pain to palpation along surgical incision sites - Neurological Exam Neurological Exam: Alert, Awake, Oriented x3 - Psychiatric Exam Psychiatric exam: Depressed, Normal Affect, Normal Mood Assessment and Plan - Assessment and Plan (Free Text) Assessment: 61 yo male patient POD#2 ORIF left ankle fracture Plan: -Pt S&E at bedside this AM w/ Dr. Dominguez present -Chart,labs vitals reviewed: afebrile, wbc 11.5 (likely post-op reactive changes ) -Pt to remain NWB to left lower extremity w/ knee immobilizer -continue PT -F/U ortho rec's -d/c Ancef -cleansed surgical incision sites with betadine, applied betadine soaked adaptic , DSD, kerlix, posterior splint with edward compression including webril and KILEY -cont. pain mgmt. -continue elevating LLE -Stable per podiatry
[2016-10-12] MEDS: Enoxaparin 40 mg Syringe SC SCH (09:49)
[2016-10-12] MEDS: Pantoprazole 40 mg EC Tab PO SCH (09:52)
[2016-10-12] MEDS: Multivitamin With Minerals Tab PO SCH (09:54)
--- NOTE | 2016-10-12 11:56 | CP.PCM.CON ---
History of Present Illness - History of Present Illness History of Present Illness: 61 yo Male w/ PMH= HTN, hypercholest, depression, anxiety presented to the ER at [facility] on 10/06/16 w/ L ankle pain and deformity as well as L knee pain and swelling. He states that he felt dizzy and fell landing on his L LE. He had immediate 10 /10 pain localized to the L ankle with inability to WB on LLE. He also noticed L knee swelling and instability but not much pain. He recently underwent L-spine microdiscectomy 3 weeks [employer] by an outside spine or rehab doctor as well as laminectomy 5 years ago by a spine surgeon he doesn' t recall. He was brought to the ER at [facility] and after evaluation by ER staff and review of imaging, he was dx'd with L ankle displaced trimal fx. Podiatry consult was placed and he was closed reduced by Podiatry resident and placed in splint. He was admitted to Dr. Kieran Dai service for definitive care and treatment. Pt also adds the subjective feeling of episodic R ankle/ foot weakness that occurs sporadic since the spine surgery 5 years ago. x-rays taken in ER: L ankle: displaced trimal fx with medial - posterior subluxation of talus L knee: no obvious deformity or fx, mild DJD L-spine: s/p laminectomy years ago Orthopedic consultation was placed and I evaluated the pt as an inpt at [facility] 6th floor on 10/07/16 evening. Re-evaluated on 10/11/16 at TCU at [facility]. Post-op after L ankle trimal fx ORIF. MRI L knee done at [facility] on 10/08/16 was read as: 1. Complete rupture of the anterior cruciate ligament. 2. Prominent bone bruising and or subchondral fracturing of the mid lateral femoral condyle at the articular surface as well as the posterior lateral proximal tibial plateau and posteromedial proximal tibial plateau. Additional curvilinear fracture deformity at the level of the fibular head. 3. Prominent signal abnormality seen within the posterior lateral corner of the knee concerning for a posterior-lateral corner injury. This includes a fracture deformity of the posterior lateral proximal tibia as well as a fracture deformity of the proximal fibula. In addition, there is a high grade strain versus partial tear of the distal attachment of the biceps femoris tendon as well as the distal attachment of the fibular collateral ligament. Signal abnormality is also noted at the insertion of the popliteus tendon and likely arcuate ligament. 4. Prominent osteochondral lesion with overlying cartilage fibrillation and loss measuring 1.7 centimeters at the mid to posterior medial femoral condyle at the articular surface. 5. Blunting of the tip of the body and posterior horn of the medial meniscus suggestive for a tear. 6. Linear increased signal noted at the junction of the body and posterior horn of the lateral meniscus concerning for a possible tear. 7. High-grade sprain versus partial tear of the medial collateral ligament. 8. Prominent cartilage thinning and loss overlying the lateral patellar facet extending to the subchondral bone with signal change in the adjacent marrow suggestive for osteochondral change. 9. High-grade strain versus partial tearing of the medial and lateral patellar retinaculum. 10. Cartilage thinning and loss involving the medial and lateral compartments of the femorotibial joint space. 11. Large suprapatellar joint effusion with associated synovial debris and hypertrophy. Suggestion of a possible small layering hemarthrosis. Moderate posterior Pérez's cyst. He has been compliant with the knee immobilizer to the L knee. Denies pain at L knee. He underwent ORIF L ankle on 10/10/16, tolerated procedure well by Podiatry team , Dr. Dominguez. He denies any L-spine/LBP or changes in RLE post-op. Past Patient History - Past Medical History & Family History Past Medical History?: Yes - Past Social History Smoking Status: Never Smoked - CARDIAC Hx Cardiac Disorders: Yes Hx Hypercholesterolemia: Yes Hx Hypertension: Yes - PULMONARY Hx Respiratory Disorders: No - NEUROLOGICAL Hx Neurological Disorder: No - HEENT Hx HEENT Problems: No - RENAL Hx Chronic Kidney Disease: No - ENDOCRINE/METABOLIC Hx Endocrine Disorders: No - HEMATOLOGICAL/ONCOLOGICAL Hx Blood Disorders: No Hx AIDS: No Hx Human Immunodeficiency Virus (HIV): No - INTEGUMENTARY Hx Dermatological Problems: No - MUSCULOSKELETAL/RHEUMATOLOGICAL Hx Back Pain: Yes Hx Falls: Yes Hx Herniated Disk: Yes - GASTROINTESTINAL Hx Gastrointestinal Disorders: Yes Hx Gastritis: Yes - GENITOURINARY/GYNECOLOGICAL Hx Genitourinary Disorders: No - PSYCHIATRIC Hx Psychophysiologic Disorder: Yes Hx Anxiety: Yes Hx Depression: Yes Hx Substance Use: No - SURGICAL HISTORY Hx Open Reduction Internal Fixation: Yes (l ankle 10/10/16) Other/Comment: laminectomy 2014,herniated disc surgery - ANESTHESIA Hx Anesthesia: Yes Hx Anesthesia Reactions: No Hx Malignant Hyperthermia: No Meds Allergies/Adverse Reactions: Allergies Allergy/AdvReac Type Severity Reaction Status Date / Time No Known Allergies Allergy Verified 10/11/16 17:09 - Medications Medications: Current Medications Al Hydrox/Mg Hydrox/Simethicone (Maalox Plus 30 Ml) 30 ml PO Q6 PRN PRN Reason: Indigestion / Heartburn Last Admin: 10/11/16 19:21 Dose: 30 ml Amlodipine Besylate (Norvasc) 10 mg PO 0000 [facility] Last Admin: 10/12/16 00:20 Dose: 10 mg Atorvastatin Calcium (Lipitor) 20 mg PO DAILY [facility] Last Admin: 10/12/16 09:55 Dose: 20 mg Bupropion HCl (Wellbutrin) 100 mg PO 0900,1600 [facility] Last Admin: 10/12/16 09:49 Dose: 100 mg Chlorthalidone (Hygroton) 25 mg PO DAILY [facility] Last Admin: 10/12/16 09:51 Dose: 25 mg Clonazepam (Klonopin) 1 mg PO 0000,0900,1600 [facility] Last Admin: 10/12/16 09:59 Dose: 1 mg Clonidine HCl (Catapres) 0.1 mg PO 0000,1600 [facility] Last Admin: 10/12/16 00:19 Dose: 0.1 mg Clonidine HCl (Catapres) 0.2 mg PO DAILY [facility] Last Admin: 10/12/16 09:55 Dose: 0.2 mg Enoxaparin Sodium (Lovenox) 40 mg SC DAILY [facility] PRN Reason: Protocol Last Admin: 10/12/16 09:49 Dose: 40 mg Fluoxetine HCl (Prozac) 20 mg PO 1600 [facility] Fluoxetine HCl (Prozac) 40 mg PO DAILY [facility] Last Admin: 10/12/16 09:52 Dose: 40 mg Gabapentin (Neurontin) 800 mg PO 0000,0900,1600 [facility] Last Admin: 10/12/16 09:51 Dose: 800 mg Hydralazine HCl (Apresoline) 50 mg PO 0000 [facility] Last Admin: 10/12/16 00:18 Dose: 50 mg Hydralazine HCl (Apresoline) 100 mg PO DAILY [facility] Last Admin: 10/12/16 09:53 Dose: 100 mg Ketorolac Tromethamine (Toradol) 30 mg IVP Q6 PRN PRN Reason: Pain, moderate (4-7) Last Admin: 10/11/16 19:20 Dose: 30 mg Metoprolol Tartrate (Lopressor) 100 mg PO 1600 [facility] Metoprolol Tartrate (Lopressor) 200 mg PO DAILY [facility] Last Admin: 10/12/16 09:54 Dose: 200 mg Mirtazapine (Remeron) 15 mg PO HS [facility] Last Admin: 10/11/16 22:17 Dose: 15 mg Multivitamins/Minerals (Therapeutic-M Tab) 1 tab PO DAILY [facility] Last Admin: 10/12/16 09:54 Dose: 1 tab Pantoprazole Sodium (Protonix Ec Tab) 40 mg PO DAILY [facility] Last Admin: 10/12/16 09:52 Dose: 40 mg Tizanidine HCl (Zanaflex) 1 mg PO Q12 PRN PRN Reason: SPASM Last Admin: 10/12/16 09:50 Dose: 1 mg Valsartan (Diovan) 320 mg PO DAILY [facility] Last Admin: 10/12/16 09:56 Dose: 320 mg Physical Exam - Extremities Exam Additional comments: secondary survey done, no (+) findings aside from the LLE trauma. Back: - ttp, - swelling/warmth/redness, all surgical incisions well healed B/L LE: sensory intact L2-S1 motor intact L2-S1 Right Lower Extremity: - ttp, skin intact, - swelling/warmth/redness, +1 instability at ATFL R ankle FROM at all joints w/o pain + 5/5 motor strength Hip flex/ext, knee flex/ext, ankle df/pf, toes up & down sensory intact L2-S1, DPN/TN/SPN, 2+ DP Left Lower Extremity: ++++ ttp at ankle and mild ttp at posterior lateral knee Ankle: well padded splint is c/d/i Knee: +++ effusion, ++ ttp mild at posterior lateral knee, skin intact, - warmth /reddness ROM at knee limited due to pain at high flexion, 0-120 3+ anterior drawer/Luke - posterior lateral corner instability/PLC drawer -posterior drawer/ reverse Luke 2+ pivot shift/ - reverse pivot shift ++ [facility] + 5/5 motor strength Hip flex/ext, knee flex/ext, toes up & down sensory intact L2-S1, DPN/TN/SPN, 2+ DP Results - Vital Signs Recent Vital Signs: Last Vital Signs Temp 98.2 F 10/12/16 08:17 Pulse 73 10/12/16 09:55 Resp 20 10/12/16 08:17 BP 140/82 10/12/16 09:55 Pulse Ox 99 10/12/16 08:17 Assessment & Plan (1) Effusion, left knee Assessment and Plan: 61 yo Male, s/p fall due to syncopy on 10/06/16 presented to the ER at [facility] with L knee / L ankle pain Dx= L knee: #1 effusion improved #2 non-displaced acute fracture of posterior lateral tibial plateau and fibular head #3 ACL tear #4 medial and lateral meniscal tears #5 partial tears of MCL and posterior lateral corner/ biceps long head L ankle: #1 displaced trimal fracture #2 dislocation/subluxation s/p ORIF by podiatry on 10/10/16 L-spine: #1 Deg Disc Dz #2 s/p microdisc 3 weeks ago and laminectomy 5 years ago PLAN: L ankle: -under the care of the Podiatry team L knee: -clinically and confirmed on MRI, non-displaced fx's of tibial plateau and fibular head, MMT, LMT, ACL tear, partial tears of MCL/PLC -recommend knee immobilizer for now, difficult to immobilize with split post op on ipsilateral ankle -NWB LLE -once ankle can be advanced to short leg cast, podiatry team should try to make the cast short, up to mid millan to allow for custom ACL brace for knee -in the interim, use knee immobilizer -PT can remove to allow passive ROM of knee during sessions -will follow L-spine: -clinically stable -spine is not my speciality but I don't see any general ortho contraindications to lying supine during the L ankle ORIF by podiatry -if more detailed recommendations about the L-spine are needed, consider neurosurgery / spine surgery consult R ankle: -clinically, no weakness detected, this is a more subjective complaint of episodic weakness and ATFL instability / rolling of ankle -should be focus of care with PT as this will be his WB extremity post-op and as he recovers -consider AFO to give confidence or simple ankle brace for ambulation Thank you for allowing me to contribute to the care of your patient. Please contact me with any updates, questions, concerns, . Mukesh Gudino MD Orthopedic Surgery [phone] Status: Acute Status: Acute
[2016-10-12] MEDS ORDERED: Petrolatum, White 1 OZ TP PRN (14:07)
[2016-10-12] MEDS ORDERED: Petrolatum UD PAK TOP PRN (20:18)
[2016-10-12] MEDS ORDERED: Petrolatum UD PAK TOP SCH (22:00)
[2016-10-13 08:42] LABS: CHOLESTEROL 117 mg/dL (0-199)
[2016-10-13] MEDS: Multivitamin With Minerals Tab PO SCH (08:55)
[2016-10-13] MEDS: Pantoprazole 40 mg EC Tab PO SCH (08:55)
[2016-10-13] MEDS: Enoxaparin 40 mg Syringe SC SCH (08:55)
--- NOTE | 2016-10-13 09:28 | PN ---
DATE: 10/13/2016 The patient is seen and examined. Interim events noted. Consults noted and appreciated. Podiatry f ollowup and intervention noted and appreciated. The patient remains in transitional care unit. The patient is awake, responsive ____ control. PHYSICAL EXAMINATION: GENERAL: The patient is in no acute distress. VITAL SIGNS: ____. HEART: S1, S2 normal, regular. LUNGS: Good bilateral air exchange. ABDOMEN: Soft, nontender. EXTREMITIES: Surgical podiatry dressing. No sign of distal neurovascular compromise. The patient i s able to wiggle the toes. No edema, no calf swelling, no tenderness. No acute ischemia. CENTRAL NERVOUS SYSTEM: Essentially unchanged. DIAGNOSTIC DATA: Available diagnostic data reviewed. Overall, the patient's general medical condition is stable. PLAN: As ordered. Kieran Dai MD cc: [id number] TT: 10/13/2016 09:27:31 Confirmation # [id number] Dictation # [id number]
--- NOTE | 2016-10-13 11:03 | CP.PCM.PN ---
Subjective - Date & Time of Evaluation Date of Evaluation: 10/13/16 Time of Evaluation: 11:01 - Subjective Subjective: 61 y/o male seen at bedside 3 days s/p left ankle ORIF. Patient resting comfortably in TCU in NAD and AAOx3. Patient denies any acute events overnight. His leg is resting on multiple towels, dressing is clean,dry,intact. Patient states that the pain is well-controlled. Patient states that he is a little depressed. Patient denies any n/v/f/c/d/sob. Objective - Vital Signs/Intake and Output Vital Signs (last 24 hours): Temp Pulse Resp BP Pulse Ox 97.6 F 67 20 135/76 100 10/13/16 07:55 10/13/16 08:57 10/13/16 07:55 10/13/16 08:57 10/13/16 07:55 - Medications Medications: Current Medications Acetaminophen (Tylenol 325mg Tab) 650 mg PO Q6 PRN PRN Reason: Headache Last Admin: 10/13/16 10:59 Dose: 650 mg Al Hydrox/Mg Hydrox/Simethicone (Maalox Plus 30 Ml) 30 ml PO Q6 PRN PRN Reason: Indigestion / Heartburn Last Admin: 10/11/16 19:21 Dose: 30 ml Amlodipine Besylate (Norvasc) 10 mg PO 0000 [facility] Last Admin: 10/13/16 00:12 Dose: 10 mg Atorvastatin Calcium (Lipitor) 20 mg PO DAILY [facility] Last Admin: 10/13/16 08:56 Dose: 20 mg Bupropion HCl (Wellbutrin) 100 mg PO 0900,1600 [facility] Last Admin: 10/13/16 08:55 Dose: 100 mg Chlorthalidone (Hygroton) 25 mg PO DAILY [facility] Last Admin: 10/13/16 08:56 Dose: 25 mg Clonazepam (Klonopin) 1 mg PO 0000,0900,1600 [facility] Last Admin: 10/13/16 08:59 Dose: 1 mg Clonidine HCl (Catapres) 0.1 mg PO 0000,1600 [facility] Last Admin: 10/13/16 00:11 Dose: 0.1 mg Clonidine HCl (Catapres) 0.2 mg PO DAILY [facility] Last Admin: 10/13/16 08:56 Dose: 0.2 mg Emollient Ointment (Vaseline Oint) 1 pkt TOP RQ6 PRN PRN Reason: Dry skin Last Admin: 10/12/16 21:18 Dose: 1 pkt Enoxaparin Sodium (Lovenox) 40 mg SC DAILY [facility] PRN Reason: Protocol Last Admin: 10/13/16 08:55 Dose: 40 mg Fluoxetine HCl (Prozac) 20 mg PO 1600 [facility] Last Admin: 10/12/16 17:04 Dose: 20 mg Fluoxetine HCl (Prozac) 40 mg PO DAILY [facility] Last Admin: 10/13/16 08:56 Dose: 40 mg Gabapentin (Neurontin) 800 mg PO 0000,0900,1600 [facility] Last Admin: 10/13/16 08:56 Dose: 800 mg Hydralazine HCl (Apresoline) 50 mg PO 0000 [facility] Last Admin: 10/13/16 00:11 Dose: 50 mg Hydralazine HCl (Apresoline) 100 mg PO DAILY [facility] Last Admin: 10/13/16 08:55 Dose: 100 mg Ketorolac Tromethamine (Toradol) 30 mg IVP Q6 PRN PRN Reason: Pain, moderate (4-7) Last Admin: 10/12/16 12:35 Dose: 30 mg Metoprolol Tartrate (Lopressor) 100 mg PO 1600 [facility] Last Admin: 10/12/16 17:06 Dose: 100 mg Metoprolol Tartrate (Lopressor) 200 mg PO DAILY [facility] Last Admin: 10/13/16 08:57 Dose: 200 mg Mirtazapine (Remeron) 15 mg PO HS [facility] Last Admin: 10/12/16 21:17 Dose: 15 mg Multivitamins/Minerals (Therapeutic-M Tab) 1 tab PO DAILY [facility] Last Admin: 10/13/16 08:55 Dose: 1 tab Pantoprazole Sodium (Protonix Ec Tab) 40 mg PO DAILY [facility] Last Admin: 10/13/16 08:55 Dose: 40 mg Tizanidine HCl (Zanaflex) 1 mg PO Q12 PRN PRN Reason: SPASM Last Admin: 10/12/16 09:50 Dose: 1 mg Valsartan (Diovan) 320 mg PO DAILY [facility] Last Admin: 10/13/16 08:57 Dose: 320 mg - Constitutional Appears: Well, Non-toxic, No Acute Distress - Extremities Exam Additional comments: left leg dressing c/d/i no calf pain or tenderness cft < 3 sec to all digits, able to wiggle toes - Neurological Exam Neurological Exam: Alert, Awake, Oriented x3 - Psychiatric Exam Psychiatric exam: Normal Affect, Normal Mood Assessment and Plan - Assessment and Plan (Free Text) Assessment: 61 yo male patient POD#3 ORIF left ankle fracture Plan: -Pt S&E at bedside this AM -discussed in detail with attending Dr. Dominguez -Chart,labs vitals reviewed: afebrile -Pt to remain NWB to left lower extremity w/ knee immobilizer -continue PT -F/U ortho rec's -splint and dressing to LLE remains c/d/i -cont. pain mgmt. -continue elevating LLE -Stable per podiatry
[2016-10-13] MEDS ORDERED: Oxycodone/Acetaminophen 5/325 mg Tab PO ONE (23:40)
--- NOTE | 2016-10-14 08:43 | CP.PCM.PN ---
Subjective - Date & Time of Evaluation Date of Evaluation: 10/14/16 Time of Evaluation: 06:40 - Subjective Subjective: 61 y/o male seen at bedside 4 days s/p left ankle ORIF. Patient resting comfortably in TCU in NAD and AAOx3. Patient denies any acute events overnight. His leg is resting on multiple towels, dressing is clean,dry,intact. Patient states that the pain is well-controlled. Patient states that he is a little depressed. Patient denies any n/v/f/c/d/sob. Objective - Vital Signs/Intake and Output Vital Signs (last 24 hours): Temp Pulse Resp BP Pulse Ox 98.1 F 58 L 20 131/69 100 10/14/16 07:57 10/14/16 07:57 10/14/16 07:57 10/14/16 07:57 10/14/16 07:57 - Medications Medications: Current Medications Acetaminophen (Tylenol 325mg Tab) 650 mg PO Q6 PRN PRN Reason: Headache Last Admin: 10/13/16 10:59 Dose: 650 mg Al Hydrox/Mg Hydrox/Simethicone (Maalox Plus 30 Ml) 30 ml PO Q6 PRN PRN Reason: Indigestion / Heartburn Last Admin: 10/11/16 19:21 Dose: 30 ml Amlodipine Besylate (Norvasc) 10 mg PO 0000 [facility] Last Admin: 10/13/16 23:28 Dose: 10 mg Atorvastatin Calcium (Lipitor) 20 mg PO DAILY [facility] Last Admin: 10/13/16 08:56 Dose: 20 mg Bupropion HCl (Wellbutrin) 100 mg PO 0900,1600 [facility] Last Admin: 10/13/16 17:52 Dose: 100 mg Chlorthalidone (Hygroton) 25 mg PO DAILY [facility] Last Admin: 10/13/16 08:56 Dose: 25 mg Clonazepam (Klonopin) 1 mg PO 0000,0900,1600 [facility] Last Admin: 10/13/16 23:28 Dose: 1 mg Clonidine HCl (Catapres) 0.1 mg PO 0000,1600 [facility] Last Admin: 10/13/16 23:29 Dose: 0.1 mg Clonidine HCl (Catapres) 0.2 mg PO DAILY [facility] Last Admin: 10/13/16 08:56 Dose: 0.2 mg Docusate Sodium (Colace) 300 mg PO HS [facility] Emollient Ointment (Vaseline Oint) 1 pkt TOP RQ6 PRN PRN Reason: Dry skin Last Admin: 10/12/16 21:18 Dose: 1 pkt Enoxaparin Sodium (Lovenox) 40 mg SC DAILY [facility] PRN Reason: Protocol Last Admin: 10/13/16 08:55 Dose: 40 mg Fluoxetine HCl (Prozac) 20 mg PO 1600 [facility] Last Admin: 10/13/16 17:54 Dose: 20 mg Fluoxetine HCl (Prozac) 40 mg PO DAILY [facility] Last Admin: 10/13/16 08:56 Dose: 40 mg Gabapentin (Neurontin) 800 mg PO 0000,0900,1600 [facility] Last Admin: 10/13/16 23:28 Dose: 800 mg Hydralazine HCl (Apresoline) 50 mg PO 0000 [facility] Last Admin: 10/13/16 23:31 Dose: 50 mg Hydralazine HCl (Apresoline) 100 mg PO DAILY [facility] Last Admin: 10/13/16 08:55 Dose: 100 mg Ketorolac Tromethamine (Toradol) 30 mg IVP Q6 PRN PRN Reason: Pain, moderate (4-7) Last Admin: 10/13/16 22:35 Dose: 30 mg Metoprolol Tartrate (Lopressor) 100 mg PO 1600 [facility] Last Admin: 10/13/16 17:53 Dose: 100 mg Metoprolol Tartrate (Lopressor) 200 mg PO DAILY [facility] Last Admin: 10/13/16 08:57 Dose: 200 mg Mirtazapine (Remeron) 15 mg PO HS [facility] Last Admin: 10/13/16 21:18 Dose: 15 mg Multivitamins/Minerals (Therapeutic-M Tab) 1 tab PO DAILY [facility] Last Admin: 10/13/16 08:55 Dose: 1 tab Oxycodone/Acetaminophen (Percocet 5/325 Mg Tab) 1 tab PO Q8 PRN PRN Reason: Pain, severe (8-10) Stop: 10/17/16 09:01 Pantoprazole Sodium (Protonix Ec Tab) 40 mg PO DAILY [facility] Last Admin: 10/13/16 08:55 Dose: 40 mg Tizanidine HCl (Zanaflex) 1 mg PO Q12 PRN PRN Reason: SPASM Last Admin: 10/12/16 09:50 Dose: 1 mg Valsartan (Diovan) 320 mg PO DAILY [facility] Last Admin: 10/13/16 08:57 Dose: 320 mg - Constitutional Appears: Well, Non-toxic, No Acute Distress - Extremities Exam Additional comments: left leg dressing and splint left c/d/i no calf pain or tenderness cft < 3 sec to all digits, able to wiggle toes. Elongated toenails noted bilaterally - Neurological Exam Neurological Exam: Alert, Awake, Oriented x3 - Psychiatric Exam Psychiatric exam: Normal Affect, Normal Mood Assessment and Plan - Assessment and Plan (Free Text) Assessment: 61 yo male patient POD#4 ORIF left ankle fracture Plan: -Pt S&E at bedside this AM with attending Dr. Dominguez -Chart,labs vitals reviewed: afebrile -Pt to remain NWB to left lower extremity w/ knee immobilizer -continue PT -F/U ortho rec's -splint and dressing to LLE remains c/d/i -cont. pain mgmt. -continue elevating LLE -Stable per podiatry
--- NOTE | 2016-10-14 09:30 | HP ---
HISTORY OF PRESENT ILLNESS: This is a 61-year-old male who recently was admitted to medical floor af ter suffering a fall and breaking ankle for which patient underwent surgery and was stabilized and wa s transferred to transitional care unit for rehabilitation. The patient is sleepy, arousable. The p atient complains of pain which is adequately controlled. No chest pain or shortness of breath. PAST MEDICAL HISTORY: Significant for arthritis. PAST SURGICAL HISTORY: Significant for recent ankle surgery. PERSONAL HISTORY: The patient is currently a nonsmoker, nondrinker, no substance abuse. MEDICATIONS: Norvasc 10 mg, Liptor 20 mg, Wellbutrin 100 mg, Klonopin 1 mg, Lovenox 40mg, Prozac 40 mg. PHYSICAL EXAMINATION: GENERAL: Well-built, well-nourished, overweight 61-year-old male in no acute distress. VITAL SIGNS: Temperature afebrile, pulse 77, respirations 18, blood pressure 140/80. HEENT: Pupils reacting to light. No JVD, no thyromegaly, no lymphadenopathy, no nystagmus. Normoce phalic, atraumatic skull. HEART: S1, S2 normal, regular. No significant murmur, gallop or rub is heard. LUNGS: Show good bilateral air exchange. No rales or rhonchi. ABDOMEN: Soft, nontender, no organomegaly, no fluid. Bowel sounds are plus. EXTREMITIES: The patient is status post ankle surgery. Surgical site is under podiatry dressing. N o sign of acute distal neurovascular compromise. No edema, no calf swelling, no tenderness, no acute ischemia. CENTRAL NERVOUS SYSTEM: Essentially unchanged from patient's usual exam. There is no focal motor or sensory neurological deficit. DIAGNOSTIC DATA: Available diagnostic data reviewed. Case discussed with bed manager at the bedside. ADMITTING IMPRESSION: Fractured ankle, osteoarthritis. PLAN: As ordered. Case and plan discussed with patient and bed manager. Kieran Dai MD cc: [id number] TT: 10/12/2016 10:47:58 dc 10/14/2016 08:29:12
[2016-10-14] MEDS: Enoxaparin 40 mg Syringe SC SCH (09:45)
[2016-10-14] MEDS: Pantoprazole 40 mg EC Tab PO SCH (09:46)
[2016-10-14] MEDS: Multivitamin With Minerals Tab PO SCH (09:47)
--- NOTE | 2016-10-14 10:34 | PN ---
DATE: 10/14/2016 SUBJECTIVE: The patient seen and examined. Interim events noted. Consults noted, appreciated. Pod iatry followup and intervention noted and appreciated. The patient remains in transitional care unit . The patient is awake, responsive. Had pain, improved on telephone order for Percocet was given. The patient is requesting pain medication on a p.r.n. basis. The patient is aware of abuse potential , and he is taking Vicodin at home and is very well educated about it. He denies any other specific complaint of chest pain or shortness of breath. PHYSICAL EXAMINATION: GENERAL: The patient is in no acute distress. VITAL SIGNS: Stable. HEART: S1, S2 normal, regular. LUNGS: Good bilateral air exchange. ABDOMEN: Soft, nontender. EXTREMITIES: Left lower extremity is under surgical dressing. No distal complications. The patient is able to wiggle the toes. Otherwise no edema, no calf swelling, no tenderness, no acute ischemia. CENTRAL NERVOUS SYSTEM: Essentially unchanged. DIAGNOSTIC DATA: Available diagnostic data reviewed. Overall, patient's general medical condition is stable. PLAN: As ordered. Kieran Dai MD cc: [id number] TT: 10/14/2016 09:45:46 Confirmation # [id number] Dictation # [id number]
[2016-10-14] MEDS: Oxycodone/Acetaminophen 5/325 mg Tab PO PRN (15:32)
--- NOTE | 2016-10-15 07:24 | CP.PCM.PN ---
Subjective - Date & Time of Evaluation Date of Evaluation: 10/15/16 Time of Evaluation: 07:30 - Subjective Subjective: 61 y/o male seen at bedside 5 days s/p left ankle ORIF. Patient resting comfortably in TCU in NAD and AAOx3. Patient denies any acute events overnight. His leg is resting on multiple towels, dressing is clean,dry,intact. Patient states that the pain is well-controlled. Patient states that he is a little depressed. Patient denies any n/v/f/c/d/sob. Objective - Vital Signs/Intake and Output Vital Signs (last 24 hours): Temp Pulse Resp BP Pulse Ox 98.1 F 65 18 122/64 94 L 10/14/16 22:00 10/15/16 00:17 10/14/16 22:00 10/15/16 00:17 10/14/16 22:00 - Medications Medications: Current Medications Acetaminophen (Tylenol 325mg Tab) 650 mg PO Q6 PRN PRN Reason: Headache Last Admin: 10/13/16 10:59 Dose: 650 mg Al Hydrox/Mg Hydrox/Simethicone (Maalox Plus 30 Ml) 30 ml PO Q6 PRN PRN Reason: Indigestion / Heartburn Last Admin: 10/11/16 19:21 Dose: 30 ml Amlodipine Besylate (Norvasc) 10 mg PO 0000 [facility] Last Admin: 10/15/16 00:08 Dose: 10 mg Atorvastatin Calcium (Lipitor) 20 mg PO DAILY [facility] Last Admin: 10/14/16 09:43 Dose: 20 mg Bupropion HCl (Wellbutrin) 100 mg PO 0900,1600 [facility] Last Admin: 10/14/16 17:11 Dose: 100 mg Chlorthalidone (Hygroton) 25 mg PO DAILY [facility] Last Admin: 10/14/16 09:40 Dose: 25 mg Clonazepam (Klonopin) 1 mg PO 0000,0900,1600 [facility] Last Admin: 10/15/16 00:08 Dose: 1 mg Clonidine HCl (Catapres) 0.1 mg PO 0000,1600 [facility] Last Admin: 10/15/16 00:17 Dose: 0.1 mg Clonidine HCl (Catapres) 0.2 mg PO DAILY [facility] Last Admin: 10/14/16 09:38 Dose: 0.2 mg Docusate Sodium (Colace) 300 mg PO HS [facility] Last Admin: 10/14/16 21:23 Dose: 300 mg Emollient Ointment (Vaseline Oint) 1 pkt TOP RQ6 PRN PRN Reason: Dry skin Last Admin: 10/12/16 21:18 Dose: 1 pkt Enoxaparin Sodium (Lovenox) 40 mg SC DAILY [facility] PRN Reason: Protocol Last Admin: 10/14/16 09:45 Dose: 40 mg Fluoxetine HCl (Prozac) 20 mg PO 1600 [facility] Last Admin: 10/14/16 17:10 Dose: 20 mg Fluoxetine HCl (Prozac) 40 mg PO DAILY [facility] Last Admin: 10/14/16 09:47 Dose: 40 mg Gabapentin (Neurontin) 800 mg PO 0000,0900,1600 [facility] Last Admin: 10/15/16 00:08 Dose: 800 mg Hydralazine HCl (Apresoline) 50 mg PO 0000 [facility] Last Admin: 10/15/16 00:09 Dose: 50 mg Hydralazine HCl (Apresoline) 100 mg PO DAILY [facility] Last Admin: 10/14/16 09:37 Dose: 100 mg Ketorolac Tromethamine (Toradol) 30 mg IVP Q6 PRN PRN Reason: Pain, moderate (4-7) Last Admin: 10/13/16 22:35 Dose: 30 mg Metoprolol Tartrate (Lopressor) 100 mg PO 1600 [facility] Last Admin: 10/14/16 17:11 Dose: Not Given Metoprolol Tartrate (Lopressor) 200 mg PO DAILY [facility] Last Admin: 10/14/16 09:44 Dose: 200 mg Mirtazapine (Remeron) 15 mg PO [facility] Last Admin: 10/14/16 21:23 Dose: 15 mg Multivitamins/Minerals (Therapeutic-M Tab) 1 tab PO DAILY [facility] Last Admin: 10/14/16 09:47 Dose: 1 tab Oxycodone/Acetaminophen (Percocet 5/325 Mg Tab) 1 tab PO Q8 PRN PRN Reason: Pain, severe (8-10) Stop: 10/17/16 09:01 Last Admin: 10/14/16 15:32 Dose: 1 tab Pantoprazole Sodium (Protonix Ec Tab) 40 mg PO DAILY [facility] Last Admin: 10/14/16 09:46 Dose: 40 mg Tizanidine HCl (Zanaflex) 1 mg PO Q12 PRN PRN Reason: SPASM Last Admin: 10/12/16 09:50 Dose: 1 mg Valsartan (Diovan) 320 mg PO DAILY [facility] Last Admin: 10/14/16 09:39 Dose: 320 mg - Constitutional Appears: Well, Non-toxic, No Acute Distress - Extremities Exam Additional comments: left leg dressing and splint left c/d/i no calf pain or tenderness cft < 3 sec to all digits, able to wiggle toes. Thickened toenails noted bilaterally - Neurological Exam Neurological Exam: Alert, Awake, Oriented x3 - Psychiatric Exam Psychiatric exam: Normal Affect, Normal Mood Assessment and Plan - Assessment and Plan (Free Text) Assessment: 61 yo male patient POD#5 ORIF left ankle fracture Plan: -Pt S&E at bedside this AM. Chart,labs vitals reviewed: afebrile - Discussed with attending Dr. Dominguez -Pt to remain NWB to left lower extremity w/ knee immobilizer -continue PT -F/U ortho rec's for left knee ACL rupture. -splint and dressing to LLE remains c/d/i -continue post-op pain control. -continue elevating LLE -Stable per podiatry
--- NOTE | 2016-10-15 08:04 | PN ---
DATE: 10/15/2016 The patient seen and examined. Interim events noted. Consults noted, appreciated. Podiatry followu p and intervention noted and appreciated. The patient remains in transitional care unit. Awake, res ponsive, feels okay. Denies any specific complaint. No chest pain, no shortness of breath. PHYSICAL EXAMINATION: GENERAL: The patient is in no acute distress. VITAL SIGNS: Stable. HEART: S1, S2 normal, regular. LUNGS: Good bilateral air exchange. ABDOMEN: Soft, nontender. EXTREMITIES: Under podiatric dressing. No sign of distal complications. No edema, no calf swelling , no tenderness, no acute ischemia. CENTRAL NERVOUS SYSTEM: Essentially unchanged. DIAGNOSTIC DATA: Available reviewed. Overall, patient's general medical condition is slowly improving. PLAN: As ordered. Kieran Dai MD cc: [id number] TT: 10/15/2016 08:02:39 Confirmation # [id number] Dictation # [id number] en
[2016-10-15] MEDS: Enoxaparin 40 mg Syringe SC SCH (08:55)
[2016-10-15] MEDS: Multivitamin With Minerals Tab PO SCH (08:56)
[2016-10-15] MEDS: Pantoprazole 40 mg EC Tab PO SCH (08:59)
[2016-10-15] MEDS: Oxycodone/Acetaminophen 5/325 mg Tab PO PRN (12:39)
--- NOTE | 2016-10-15 14:04 | CP.PCM.CON ---
History of Present Illness - History of Present Illness History of Present Illness: Dr Justin PMR consultation on Lalito Cifuentes, born 1955, who has been admitted to the TCU following a left ankle trimalleolar fracture and s/p ORIF by Dr Dominguez 10/10/16. Post op NWB. Also likely left knee injury as per orthopedic evaluation. Patient's history is complicated by lumbar and cervical surgery Patient appears to have history of depression and anxiety Review of Systems - Constitutional Constitutional: absent: Chills - EENT Eyes: absent: Blurred Vision Nose/Mouth/Throat: absent: Nasal Congestion - Cardiovascular Cardiovascular: absent: Chest Pain - Respiratory Respiratory: absent: Dyspnea - Gastrointestinal Gastrointestinal: Constipation - Musculoskeletal Musculoskeletal: Back Pain - Neurological Neurological: absent: Abnormal Movements, Syncope Past Patient History - Past Medical History & Family History Past Medical History?: Yes - Past Social History Smoking Status: Never Smoked Alcohol: None Home Situation {Lives}: Alone (elevator) - CARDIAC Hx Cardiac Disorders: Yes Hx Hypercholesterolemia: Yes Hx Hypertension: Yes - PULMONARY Hx Respiratory Disorders: No - NEUROLOGICAL Hx Neurological Disorder: No - HEENT Hx HEENT Problems: No - RENAL Hx Chronic Kidney Disease: No - ENDOCRINE/METABOLIC Hx Endocrine Disorders: No - HEMATOLOGICAL/ONCOLOGICAL Hx Blood Disorders: No Hx AIDS: No Hx Human Immunodeficiency Virus (HIV): No - INTEGUMENTARY Hx Dermatological Problems: No - MUSCULOSKELETAL/RHEUMATOLOGICAL Hx Back Pain: Yes Hx Falls: Yes Hx Herniated Disk: Yes - GASTROINTESTINAL Hx Gastrointestinal Disorders: Yes Hx Gastritis: Yes - GENITOURINARY/GYNECOLOGICAL Hx Genitourinary Disorders: No - PSYCHIATRIC Hx Psychophysiologic Disorder: Yes Hx Anxiety: Yes Hx Depression: Yes Hx Substance Use: No - SURGICAL HISTORY Hx Open Reduction Internal Fixation: Yes (l ankle 10/10/16) Other/Comment: laminectomy 2014,herniated disc surgery - ANESTHESIA Hx Anesthesia: Yes Hx Anesthesia Reactions: No Hx Malignant Hyperthermia: No Meds Allergies/Adverse Reactions: Allergies Allergy/AdvReac Type Severity Reaction Status Date / Time No Known Allergies Allergy Verified 10/11/16 17:09 - Medications Medications: Current Medications Acetaminophen (Tylenol 325mg Tab) 650 mg PO Q6 PRN PRN Reason: Headache Last Admin: 10/13/16 10:59 Dose: 650 mg Al Hydrox/Mg Hydrox/Simethicone (Maalox Plus 30 Ml) 30 ml PO Q6 PRN PRN Reason: Indigestion / Heartburn Last Admin: 10/11/16 19:21 Dose: 30 ml Amlodipine Besylate (Norvasc) 10 mg PO 0000 [facility] Last Admin: 10/15/16 00:08 Dose: 10 mg Atorvastatin Calcium (Lipitor) 20 mg PO DAILY [facility] Last Admin: 10/15/16 09:00 Dose: 20 mg Bupropion HCl (Wellbutrin) 100 mg PO 0900,1600 [facility] Last Admin: 10/15/16 08:57 Dose: 100 mg Chlorthalidone (Hygroton) 25 mg PO DAILY [facility] Last Admin: 10/15/16 09:02 Dose: 25 mg Clonazepam (Klonopin) 1 mg PO 0000,0900,1600 [facility] Last Admin: 10/15/16 08:55 Dose: 1 mg Clonidine HCl (Catapres) 0.1 mg PO 0000,1600 [facility] Last Admin: 10/15/16 00:17 Dose: 0.1 mg Clonidine HCl (Catapres) 0.2 mg PO DAILY [facility] Last Admin: 10/15/16 09:01 Dose: 0.2 mg Docusate Sodium (Colace) 300 mg PO HS [facility] Last Admin: 10/14/16 21:23 Dose: 300 mg Emollient Ointment (Vaseline Oint) 1 pkt TOP RQ6 PRN PRN Reason: Dry skin Last Admin: 10/12/16 21:18 Dose: 1 pkt Fluoxetine HCl (Prozac) 20 mg PO 1600 [facility] Last Admin: 10/14/16 17:10 Dose: 20 mg Fluoxetine HCl (Prozac) 40 mg PO DAILY [facility] Last Admin: 10/15/16 09:00 Dose: 40 mg Gabapentin (Neurontin) 800 mg PO 0000,0900,1600 [facility] Last Admin: 10/15/16 08:59 Dose: 800 mg Hydralazine HCl (Apresoline) 50 mg PO 0000 [facility] Last Admin: 10/15/16 00:09 Dose: 50 mg Hydralazine HCl (Apresoline) 100 mg PO DAILY [facility] Last Admin: 10/15/16 09:01 Dose: 100 mg Ketorolac Tromethamine (Toradol) 30 mg IVP Q6 PRN PRN Reason: Pain, moderate (4-7) Last Admin: 10/13/16 22:35 Dose: 30 mg Metoprolol Tartrate (Lopressor) 100 mg PO 1600 [facility] Last Admin: 10/14/16 17:11 Dose: Not Given Metoprolol Tartrate (Lopressor) 200 mg PO DAILY [facility] Last Admin: 10/15/16 08:58 Dose: 200 mg Mirtazapine (Remeron) 15 mg PO HS [facility] Last Admin: 10/14/16 21:23 Dose: 15 mg Multivitamins/Minerals (Therapeutic-M Tab) 1 tab PO DAILY [facility] Last Admin: 10/15/16 08:56 Dose: 1 tab Oxycodone/Acetaminophen (Percocet 5/325 Mg Tab) 1 tab PO Q8 PRN PRN Reason: Pain, severe (8-10) Stop: 10/17/16 09:01 Last Admin: 10/15/16 12:39 Dose: 1 tab Pantoprazole Sodium (Protonix Ec Tab) 40 mg PO DAILY [facility] Last Admin: 10/15/16 08:59 Dose: 40 mg Tizanidine HCl (Zanaflex) 1 mg PO Q12 PRN PRN Reason: SPASM Last Admin: 10/15/16 08:58 Dose: 1 mg Valsartan (Diovan) 320 mg PO DAILY [facility] Last Admin: 10/15/16 08:59 Dose: 320 mg Physical Exam - Constitutional Appears: Non-toxic, No Acute Distress - Head Exam Head Exam: ATRAUMATIC, NORMAL INSPECTION, NORMOCEPHALIC - Eye Exam Eye Exam: EOMI - ENT Exam ENT Exam: Mucous Membranes Moist - Respiratory Exam Respiratory Exam: NORMAL BREATHING PATTERN - Cardiovascular Exam Cardiovascular Exam: REGULAR RHYTHM - GI/Abdominal Exam GI & Abdominal Exam: absent: Firm - Neurological Exam Neurological exam: Alert, CN II-XII Intact, Oriented x3 - Psychiatric Exam Psychiatric exam: Depressed, Flat Affect Results - Vital Signs Recent Vital Signs: Last Vital Signs Temp 97.8 F 10/15/16 08:18 Pulse 67 10/15/16 09:01 Resp 18 10/15/16 08:18 BP 126/70 10/15/16 09:01 Pulse Ox 98 10/15/16 08:18 Assessment & Plan - Assessment and Plan (Free Text) Assessment: left ankle fracture s/p ORIF NWB also with likely left knee injury history of right knee pain as well and has had knee injections in the past not doing too much in therapy and discussed with him. likely will need KAILYN pain controlled + constipation on stool softener PT/OT to continue to help increase functional independence Patient continues to be an excellent TCU rehabilitation candidate and will have continued focused PT, OT and recreational therapy to help facilitate a safe and appropriate d/c plan
[2016-10-15 22:28] VITALS: RESP 20
--- NOTE | 2016-10-16 08:16 | PN ---
DATE: 10/16/2016 The patient seen and examined. Interim events noted. Consults noted and appreciated. [employer] i ntervention noted and appreciated. The patient remains in transitional care unit. The patient is aw nicole, responsive, feels okay. No specific complaint of chest pain or shortness of breath. Foot pain is adequately controlled. PHYSICAL EXAMINATION: GENERAL: The patient is in no acute distress. VITAL SIGNS: Stable. HEART: S1, S2 normal, regular. LUNGS: Good bilateral air exchange. ABDOMEN: Soft, nontender. EXTREMITIES: Left lower extremity is under podiatric surgical dressing. No sign of distal complicat ions. No edema, no calf swelling, no tenderness, no acute ischemia. CENTRAL NERVOUS SYSTEM: Essentially unchanged. DIAGNOSTIC DATA: Available diagnostic data reviewed. Overall, patient's general medical condition is stable. PLAN: As ordered. Kieran Dai MD cc: [id number] TT: 10/16/2016 08:15:42 Confirmation # [id number] Dictation # [id number] [email or web address]
[2016-10-16] MEDS: Enoxaparin 40 mg Syringe SC SCH (09:10)
[2016-10-16] MEDS: Pantoprazole 40 mg EC Tab PO SCH (09:10)
[2016-10-16] MEDS: Multivitamin With Minerals Tab PO SCH (09:13)
[2016-10-16] MEDS: Oxycodone/Acetaminophen 5/325 mg Tab PO PRN (12:16)
[2016-10-17] MEDS: Multivitamin With Minerals Tab PO SCH (09:14)
[2016-10-17] MEDS: Pantoprazole 40 mg EC Tab PO SCH (09:21)
[2016-10-17] MEDS: Enoxaparin 40 mg Syringe SC SCH (09:21)
--- NOTE | 2016-10-17 09:33 | PN ---
DATE: 10/17/2016 The patient seen and examined. Interim events noted. The patient remains in transitional care unit. Feels okay, pain is controlled. No chest pain, no shortness of breath. PHYSICAL EXAMINATION: GENERAL: The patient is in no acute distress. VITAL SIGNS: Stable. HEART: S1, S2 normal, regular. LUNGS: Good bilateral air exchange. ABDOMEN: Soft, nontender. EXTREMITIES: Left lower extremity is in podiatric dressing. No sign of distal complication. No marti ma, no calf swelling, no tenderness, no acute ischemia. CENTRAL NERVOUS SYSTEM: Essentially unchanged. DIAGNOSTIC DATA: Available reviewed. Overall, patient's general medical condition is stable. PLAN: As ordered. Kieran Dai MD cc: [id number] TT: 10/17/2016 09:32:39 Confirmation # [id number] Dictation # [id number] en
[2016-10-18] MEDS ORDERED: Oxycodone/Acetaminophen 5/325 mg Tab PO PRN (08:30)
--- NOTE | 2016-10-18 08:34 | PN ---
DATE: 10/18/2016 The patient seen and examined. Interim events noted. The patient remains in transitional care unit. The patient feels okay. No chest pain or shortness of breath. Pain is adequately controlled. PHYSICAL EXAMINATION: GENERAL: The patient is in no acute distress. VITAL SIGNS: Stable. HEART: S1, S2 normal, regular. LUNGS: Good bilateral air entry. ABDOMEN: Soft, nontender. EXTREMITIES: Left lower extremity is under a podiatric dressing. No sign of distal neurovascular co mpromise. CENTRAL NERVOUS SYSTEM: Essentially unchanged. DIAGNOSTIC DATA: Available diagnostic data reviewed. Overall, the patient's general medical condition is stable. PLAN: As ordered. Kieran Dai MD cc: [id number] TT: 10/18/2016 08:34:19 Confirmation # [id number] Dictation # [id number] rafaela
[2016-10-18] MEDS: Pantoprazole 40 mg EC Tab PO SCH (08:37)
[2016-10-18] MEDS: Multivitamin With Minerals Tab PO SCH (08:38)
[2016-10-18] MEDS: Enoxaparin 40 mg Syringe SC SCH (08:39)
--- NOTE | 2016-10-18 11:21 | CP.PCM.PN ---
Subjective - Date & Time of Evaluation Date of Evaluation: 10/18/16 Time of Evaluation: 11:19 - Subjective Subjective: Patient seen in room set to go to the [place] ambulating about 40' with walker pain is well controlled denies sob/cp has some BP issues and will have Dr Espinoza see patient he has see him in the past Objective - Vital Signs/Intake and Output Vital Signs (last 24 hours): Temp Pulse Resp BP Pulse Ox 97.9 F 65 20 116/73 99 10/18/16 08:01 10/18/16 08:38 10/18/16 08:01 10/18/16 08:38 10/18/16 08:01 - Medications Medications: Current Medications Acetaminophen (Tylenol 325mg Tab) 650 mg PO Q6 PRN PRN Reason: Headache Last Admin: 10/13/16 10:59 Dose: 650 mg Al Hydrox/Mg Hydrox/Simethicone (Maalox Plus 30 Ml) 30 ml PO Q6 PRN PRN Reason: Indigestion / Heartburn Last Admin: 10/11/16 19:21 Dose: 30 ml Amlodipine Besylate (Norvasc) 10 mg PO 0000 [facility] Last Admin: 10/18/16 00:36 Dose: 10 mg Atorvastatin Calcium (Lipitor) 20 mg PO DAILY [facility] Last Admin: 10/18/16 08:37 Dose: 20 mg Bupropion HCl (Wellbutrin) 100 mg PO 0900,1600 [facility] Last Admin: 10/18/16 08:38 Dose: 100 mg Chlorthalidone (Hygroton) 25 mg PO DAILY [facility] Last Admin: 10/18/16 08:38 Dose: 25 mg Clonazepam (Klonopin) 1 mg PO 0000,0900,1600 [facility] Last Admin: 10/18/16 08:38 Dose: 1 mg Clonidine HCl (Catapres) 0.1 mg PO 0000,1600 [facility] Last Admin: 10/18/16 00:28 Dose: Not Given Clonidine HCl (Catapres) 0.2 mg PO DAILY [facility] Last Admin: 10/18/16 08:37 Dose: 0.2 mg Docusate Sodium (Colace) 300 mg PO HS [facility] Last Admin: 10/17/16 21:35 Dose: 300 mg Emollient Ointment (Vaseline Oint) 1 pkt TOP RQ6 PRN PRN Reason: Dry skin Last Admin: 10/12/16 21:18 Dose: 1 pkt Enoxaparin Sodium (Lovenox) 40 mg SC DAILY [facility] PRN Reason: Protocol Last Admin: 10/18/16 08:39 Dose: 40 mg Fluoxetine HCl (Prozac) 20 mg PO 1600 [facility] Last Admin: 10/17/16 17:01 Dose: 20 mg Fluoxetine HCl (Prozac) 40 mg PO DAILY [facility] Last Admin: 10/18/16 08:38 Dose: 40 mg Gabapentin (Neurontin) 800 mg PO 0000,0900,1600 [facility] Last Admin: 10/18/16 08:38 Dose: 800 mg Hydralazine HCl (Apresoline) 50 mg PO 0000 [facility] Last Admin: 10/18/16 00:27 Dose: Not Given Hydralazine HCl (Apresoline) 100 mg PO DAILY [facility] Last Admin: 10/18/16 08:38 Dose: 100 mg Metoprolol Tartrate (Lopressor) 100 mg PO 1600 [facility] Last Admin: 10/17/16 17:00 Dose: Not Given Metoprolol Tartrate (Lopressor) 200 mg PO DAILY [facility] Last Admin: 10/18/16 08:37 Dose: 200 mg Mirtazapine (Remeron) 15 mg PO HS [facility] Last Admin: 10/17/16 21:35 Dose: 15 mg Multivitamins/Minerals (Therapeutic-M Tab) 1 tab PO DAILY [facility] Last Admin: 10/18/16 08:38 Dose: 1 tab Oxycodone/Acetaminophen (Percocet 5/325 Mg Tab) 1 tab PO Q8 PRN PRN Reason: Pain, severe (8-10) Stop: 10/21/16 09:01 Pantoprazole Sodium (Protonix Ec Tab) 40 mg PO DAILY [facility] Last Admin: 10/18/16 08:37 Dose: 40 mg Tizanidine HCl (Zanaflex) 1 mg PO Q12 PRN PRN Reason: SPASM Last Admin: 10/17/16 09:16 Dose: 1 mg Valsartan (Diovan) 320 mg PO DAILY [facility] Last Admin: 10/18/16 08:38 Dose: 320 mg
--- NOTE | 2016-10-18 12:01 | CP.PCM.CON ---
History of Present Illness - History of Present Illness History of Present Illness: Full note Dictated Hypertension S/P AVR/Aortic root replacement Rec lower dose of clonidine Check BP in upright posture before begining PT Hold Clonidine for syst BP below 110 mm Hg Past Patient History - Past Medical History & Family History Past Medical History?: Yes - Past Social History Smoking Status: Never Smoked Alcohol: None Home Situation {Lives}: Alone (elevator) - CARDIAC Hx Cardiac Disorders: Yes Hx Hypercholesterolemia: Yes Hx Hypertension: Yes - PULMONARY Hx Respiratory Disorders: No - NEUROLOGICAL Hx Neurological Disorder: No - HEENT Hx HEENT Problems: No - RENAL Hx Chronic Kidney Disease: No - ENDOCRINE/METABOLIC Hx Endocrine Disorders: No - HEMATOLOGICAL/ONCOLOGICAL Hx Blood Disorders: No Hx AIDS: No Hx Human Immunodeficiency Virus (HIV): No - INTEGUMENTARY Hx Dermatological Problems: No - MUSCULOSKELETAL/RHEUMATOLOGICAL Hx Back Pain: Yes Hx Falls: Yes Hx Herniated Disk: Yes - GASTROINTESTINAL Hx Gastrointestinal Disorders: Yes Hx Gastritis: Yes - GENITOURINARY/GYNECOLOGICAL Hx Genitourinary Disorders: No - PSYCHIATRIC Hx Psychophysiologic Disorder: Yes Hx Anxiety: Yes Hx Depression: Yes Hx Substance Use: No - SURGICAL HISTORY Hx Open Reduction Internal Fixation: Yes (l ankle 10/10/16) Other/Comment: laminectomy 2014,herniated disc surgery - ANESTHESIA Hx Anesthesia: Yes Hx Anesthesia Reactions: No Hx Malignant Hyperthermia: No Meds Allergies/Adverse Reactions: Allergies Allergy/AdvReac Type Severity Reaction Status Date / Time No Known Allergies Allergy Verified 10/11/16 17:09 - Medications Medications: Current Medications Acetaminophen (Tylenol 325mg Tab) 650 mg PO Q6 PRN PRN Reason: Headache Last Admin: 10/13/16 10:59 Dose: 650 mg Al Hydrox/Mg Hydrox/Simethicone (Maalox Plus 30 Ml) 30 ml PO Q6 PRN PRN Reason: Indigestion / Heartburn Last Admin: 10/11/16 19:21 Dose: 30 ml Amlodipine Besylate (Norvasc) 10 mg PO 0000 [facility] Last Admin: 10/18/16 00:36 Dose: 10 mg Atorvastatin Calcium (Lipitor) 20 mg PO DAILY [facility] Last Admin: 10/18/16 08:37 Dose: 20 mg Bupropion HCl (Wellbutrin) 100 mg PO 0900,1600 [facility] Last Admin: 10/18/16 08:38 Dose: 100 mg Chlorthalidone (Hygroton) 25 mg PO DAILY [facility] Last Admin: 10/18/16 08:38 Dose: 25 mg Clonazepam (Klonopin) 1 mg PO 0000,0900,1600 [facility] Last Admin: 10/18/16 08:38 Dose: 1 mg Clonidine HCl (Catapres) 0.1 mg PO 0000,1600 [facility] Last Admin: 10/18/16 00:28 Dose: Not Given Clonidine HCl (Catapres) 0.2 mg PO DAILY [facility] Last Admin: 10/18/16 08:37 Dose: 0.2 mg Docusate Sodium (Colace) 300 mg PO HS [facility] Last Admin: 10/17/16 21:35 Dose: 300 mg Emollient Ointment (Vaseline Oint) 1 pkt TOP RQ6 PRN PRN Reason: Dry skin Last Admin: 10/12/16 21:18 Dose: 1 pkt Enoxaparin Sodium (Lovenox) 40 mg SC DAILY [facility] PRN Reason: Protocol Last Admin: 10/18/16 08:39 Dose: 40 mg Fluoxetine HCl (Prozac) 20 mg PO 1600 [facility] Last Admin: 10/17/16 17:01 Dose: 20 mg Fluoxetine HCl (Prozac) 40 mg PO DAILY [facility] Last Admin: 10/18/16 08:38 Dose: 40 mg Gabapentin (Neurontin) 800 mg PO 0000,0900,1600 [facility] Last Admin: 10/18/16 08:38 Dose: 800 mg Hydralazine HCl (Apresoline) 50 mg PO 0000 [facility] Last Admin: 10/18/16 00:27 Dose: Not Given Hydralazine HCl (Apresoline) 100 mg PO DAILY [facility] Last Admin: 10/18/16 08:38 Dose: 100 mg Metoprolol Tartrate (Lopressor) 100 mg PO 1600 [facility] Last Admin: 10/17/16 17:00 Dose: Not Given Metoprolol Tartrate (Lopressor) 200 mg PO DAILY [facility] Last Admin: 10/18/16 08:37 Dose: 200 mg Mirtazapine (Remeron) 15 mg PO HS [facility] Last Admin: 10/17/16 21:35 Dose: 15 mg Multivitamins/Minerals (Therapeutic-M Tab) 1 tab PO DAILY [facility] Last Admin: 10/18/16 08:38 Dose: 1 tab Oxycodone/Acetaminophen (Percocet 5/325 Mg Tab) 1 tab PO Q8 PRN PRN Reason: Pain, severe (8-10) Stop: 10/21/16 09:01 Pantoprazole Sodium (Protonix Ec Tab) 40 mg PO DAILY [facility] Last Admin: 10/18/16 08:37 Dose: 40 mg Tizanidine HCl (Zanaflex) 1 mg PO Q12 PRN PRN Reason: SPASM Last Admin: 10/17/16 09:16 Dose: 1 mg Valsartan (Diovan) 320 mg PO DAILY [facility] Last Admin: 10/18/16 08:38 Dose: 320 mg Results - Vital Signs Recent Vital Signs: Last Vital Signs Temp 97.9 F 10/18/16 08:01 Pulse 65 10/18/16 08:38 Resp 20 10/18/16 08:01 BP 116/73 10/18/16 08:38 Pulse Ox 99 10/18/16 08:01
--- NOTE | 2016-10-18 12:29 | CON ---
DATE: 10/18/2016 HISTORY OF PRESENT ILLNESS: He is hospitalized here following surgery for fractured left ankle. The patient has a long medical history that includes surgical replacement of his aortic valve and aortic root for dilated aorta with severe aortic regurgitation. He is a severe hypertensive, who is on mul tiple medications for his hypertension. He is not a smoker, has never suffered a myocardial infarcti on or congestive cardiac failure. PHYSICAL EXAMINATION: GENERAL: Shows a middle-aged pleasant man extremely anxious at being hospitalized and the circumstan christopher surrounding his fall and fracture. He is alert, awake, coherent. VITAL SIGNS: Afebrile with a pulse rate of 62 beats per minute, regular, and a blood pressure of 110 /70 mmHg lying down and 104/70 mmHg lying down. NECK: His jugular venous pressure was not elevated. EXTREMITIES: There was no edema of his lower extremity. The pedal pulses on his right foot were wel l felt. There was no calf tenderness. HEART: There is a scar of sternotomy with a brief ejection systolic murmur in the aortic area. Ther e was no gallop rhythm. LUNGS: There were no rales. ABDOMEN: Soft. Liver and spleen were not palpable. IMPRESSION AND PLAN: At this time is status post aortic valve replacement and aortic root replacemen t for a dilated aorta with severe aortic regurgitation, hypertension. The patient is on multiple med ications with potential for bradycardia and orthostatic hypotension. His fall that resulted in the f ractured heel was brought on after getting extremely dizzy on sitting up from his bed. Under these c ircumstances, with high dose of clonidine, I have reduced his dose of clonidine and recommended that his blood pressure be recorded after sitting up from lying posture before physical therapy is underta adebayo. I have instructed the nurses to withhold clonidine in case of a systolic blood pressure below 1 00 mmHg. Carlos Alberto Espinoza MD cc: [id number] TT: 10/18/2016 12:28:58 Confirmation # [id number] Dictation # [id number] [email or web address]
--- NOTE | 2016-10-18 17:39 | CP.PCM.PN ---
Subjective - Date & Time of Evaluation Date of Evaluation: 10/18/16 Time of Evaluation: 10:40 - Subjective Subjective: 61 y/o male seen at bedside 8 days s/p left ankle ORIF (DOS: 10/10/16) , with attending Dr. Dominguez. Patient resting comfortably in TCU in NAD and AAOx3. Patient denies any acute events overnight. His leg is resting on multiple towels , dressing is clean,dry,intact. Patient states that the pain is well- controlled. Patient denies any n/v/f/c/d/sob. Objective - Vital Signs/Intake and Output Vital Signs (last 24 hours): Temp Pulse Resp BP Pulse Ox 98.1 F 63 20 100/57 L 96 10/18/16 16:01 10/18/16 16:21 10/18/16 16:01 10/18/16 16:21 10/18/16 16:01 - Medications Medications: Current Medications Acetaminophen (Tylenol 325mg Tab) 650 mg PO Q6 PRN PRN Reason: Headache Last Admin: 10/13/16 10:59 Dose: 650 mg Al Hydrox/Mg Hydrox/Simethicone (Maalox Plus 30 Ml) 30 ml PO Q6 PRN PRN Reason: Indigestion / Heartburn Last Admin: 10/11/16 19:21 Dose: 30 ml Amlodipine Besylate (Norvasc) 10 mg PO 0000 [facility] Last Admin: 10/18/16 00:36 Dose: 10 mg Atorvastatin Calcium (Lipitor) 20 mg PO DAILY [facility] Last Admin: 10/18/16 08:37 Dose: 20 mg Bupropion HCl (Wellbutrin) 100 mg PO 0900,1600 [facility] Last Admin: 10/18/16 16:28 Dose: 100 mg Chlorthalidone (Hygroton) 25 mg PO DAILY [facility] Last Admin: 10/18/16 08:38 Dose: 25 mg Clonazepam (Klonopin) 1 mg PO 0000,0900,1600 [facility] Last Admin: 10/18/16 16:28 Dose: 1 mg Clonidine HCl (Catapres) 0.2 mg PO Q12H [facility] Docusate Sodium (Colace) 300 mg PO HS [facility] Last Admin: 10/17/16 21:35 Dose: 300 mg Emollient Ointment (Vaseline Oint) 1 pkt TOP RQ6 PRN PRN Reason: Dry skin Last Admin: 10/12/16 21:18 Dose: 1 pkt Enoxaparin Sodium (Lovenox) 40 mg SC DAILY [facility] PRN Reason: Protocol Last Admin: 10/18/16 08:39 Dose: 40 mg Fluoxetine HCl (Prozac) 20 mg PO 1600 [facility] Last Admin: 10/18/16 16:28 Dose: 20 mg Fluoxetine HCl (Prozac) 40 mg PO DAILY [facility] Last Admin: 10/18/16 08:38 Dose: 40 mg Gabapentin (Neurontin) 800 mg PO 0000,0900,1600 [facility] Last Admin: 10/18/16 16:28 Dose: 800 mg Hydralazine HCl (Apresoline) 50 mg PO 0000 [facility] Last Admin: 10/18/16 00:27 Dose: Not Given Hydralazine HCl (Apresoline) 100 mg PO DAILY [facility] Last Admin: 10/18/16 08:38 Dose: 100 mg Metoprolol Tartrate (Lopressor) 100 mg PO 1600 [facility] Last Admin: 10/18/16 16:21 Dose: Not Given Metoprolol Tartrate (Lopressor) 200 mg PO DAILY [facility] Last Admin: 10/18/16 08:37 Dose: 200 mg Mirtazapine (Remeron) 15 mg PO HS [facility] Last Admin: 10/17/16 21:35 Dose: 15 mg Multivitamins/Minerals (Therapeutic-M Tab) 1 tab PO DAILY [facility] Last Admin: 10/18/16 08:38 Dose: 1 tab Oxycodone/Acetaminophen (Percocet 5/325 Mg Tab) 1 tab PO Q8 PRN PRN Reason: Pain, severe (8-10) Stop: 10/21/16 09:01 Pantoprazole Sodium (Protonix Ec Tab) 40 mg PO DAILY [facility] Last Admin: 10/18/16 08:37 Dose: 40 mg Tizanidine HCl (Zanaflex) 1 mg PO Q12 PRN PRN Reason: SPASM Last Admin: 10/17/16 09:16 Dose: 1 mg Valsartan (Diovan) 320 mg PO DAILY [facility] Last Admin: 10/18/16 08:38 Dose: 320 mg - Constitutional Appears: Well, Non-toxic, No Acute Distress - Extremities Exam Additional comments: left leg dressing and splint left c/d/i no calf pain or tenderness cft < 3 sec to all digits, able to wiggle toes. Thickened toenails noted bilaterally - Neurological Exam Neurological Exam: Alert, Awake, Oriented x3 - Psychiatric Exam Psychiatric exam: Normal Affect, Normal Mood Assessment and Plan - Assessment and Plan (Free Text) Assessment: 61 yo male patient POD#8 ORIF left ankle fracture (DOS: 10/10/16) Plan: -Pt S&E at bedside this AM. Chart,labs vitals reviewed: afebrile - Discussed with attending Dr. Dominguez -Pt to remain NWB to left lower extremity w/ knee immobilizer -continue PT -F/U ortho rec's for left knee ACL rupture. -splint and dressing to LLE remains c/d/i -continue post-op pain control. -continue elevating LLE -Stable per podiatry
[2016-10-19 08:00] LABS: ALKALINE PHOSPHATASE 71 U/L (38-126); ALT/SGPT 49 U/L (21-72); AST/SGOT 32 U/L (17-59); BILIRUBIN,TOTAL 0.5 mg/dl (0.2-1.3); BLOOD UREA NITROGEN 19 mg/dl (9-20); CARBON DIOXIDE 29 mmol/L (22-30); CHLORIDE 102 mmol/L (98-107); GFR AFRICAN-AMERICAN > 60; GLUCOSE,RANDOM 86 mg/dL (75-110); POTASSIUM 3.6 MMOL/L (3.6-5.0); SODIUM 141 mmol/l (132-148); TOTAL PROTEIN 6.2 G/DL (6.3-8.2)
--- NOTE | 2016-10-19 08:08 | PN ---
DATE: 10/19/2016 The patient seen and examined. Interim events noted. Consults noted, appreciated. Podiatry and car diology consults and intervention noted and appreciated. The patient feels okay. No chest pain, no shortness of breath, no dizziness, no syncope. PHYSICAL EXAMINATION: GENERAL: The patient is in no acute distress. VITAL SIGNS: Stable. No orthostatic changes. HEART: S1, S2 normal, regular. LUNGS: Good bilateral air exchange. ABDOMEN: Soft, nontender. EXTREMITIES: Left lower extremity ____ and podiatric dressing. No sign of distal complication. No edema, no calf swelling, no tenderness, no acute ischemia. CENTRAL NERVOUS SYSTEM: Essentially unchanged. DIAGNOSTIC DATA: Available diagnostic data reviewed. Overall, the patient's general medical condition is stable. PLAN: As ordered. Kieran Dai MD cc: [id number] TT: 10/19/2016 08:06:51 Confirmation # [id number] Dictation # [id number] tn
[2016-10-19] MEDS: Pantoprazole 40 mg EC Tab PO SCH (09:07)
[2016-10-19] MEDS: Multivitamin With Minerals Tab PO SCH (09:15)
[2016-10-19] MEDS: Enoxaparin 40 mg Syringe SC SCH (09:18)
--- NOTE | 2016-10-20 03:16 | CP.PCM.PN ---
Subjective - Date & Time of Evaluation Date of Evaluation: 10/18/16 Time of Evaluation: 20:00 - Subjective Subjective: Pt is doing well, reports no lower back or Left knee pain. He is very happy with his progress. He has been removing the knee immobilizer to work on ROM while in bed to avoid loss of ROM as instructed. He has been compliant with the knee immobilizer and NWB LLE as instructed. Objective - Vital Signs/Intake and Output Vital Signs (last 24 hours): Temp Pulse Resp BP Pulse Ox 98.6 F 62 20 114/61 96 10/19/16 19:20 10/20/16 00:22 10/19/16 19:20 10/20/16 00:22 10/19/16 19:20 - Medications Medications: Current Medications Acetaminophen (Tylenol 325mg Tab) 650 mg PO Q6 PRN PRN Reason: Headache Last Admin: 10/13/16 10:59 Dose: 650 mg Al Hydrox/Mg Hydrox/Simethicone (Maalox Plus 30 Ml) 30 ml PO Q6 PRN PRN Reason: Indigestion / Heartburn Last Admin: 10/11/16 19:21 Dose: 30 ml Amlodipine Besylate (Norvasc) 10 mg PO 0000 [facility] Last Admin: 10/20/16 00:22 Dose: 10 mg Atorvastatin Calcium (Lipitor) 20 mg PO DAILY [facility] Last Admin: 10/19/16 09:16 Dose: 20 mg Bupropion HCl (Wellbutrin) 100 mg PO 0900,1600 [facility] Last Admin: 10/19/16 17:13 Dose: 100 mg Chlorthalidone (Hygroton) 25 mg PO DAILY [facility] Last Admin: 10/19/16 09:07 Dose: 25 mg Clonazepam (Klonopin) 1 mg PO 0000,0900,1600 [facility] Last Admin: 10/20/16 00:22 Dose: 1 mg Clonidine HCl (Catapres) 0.2 mg PO Q12H [facility] Last Admin: 10/19/16 20:44 Dose: 0.2 mg Docusate Sodium (Colace) 300 mg PO HS [facility] Last Admin: 10/19/16 22:02 Dose: 300 mg Emollient Ointment (Vaseline Oint) 1 pkt TOP RQ6 PRN PRN Reason: Dry skin Last Admin: 10/12/16 21:18 Dose: 1 pkt Fluoxetine HCl (Prozac) 20 mg PO 1600 [facility] Last Admin: 10/19/16 17:13 Dose: 20 mg Fluoxetine HCl (Prozac) 40 mg PO DAILY [facility] Last Admin: 10/19/16 09:07 Dose: 40 mg Gabapentin (Neurontin) 800 mg PO 0000,0900,1600 [facility] Last Admin: 10/20/16 00:22 Dose: 800 mg Hydralazine HCl (Apresoline) 50 mg PO 0000 [facility] Last Admin: 10/20/16 00:21 Dose: 50 mg Hydralazine HCl (Apresoline) 100 mg PO DAILY [facility] Last Admin: 10/19/16 09:08 Dose: 100 mg Metoprolol Tartrate (Lopressor) 100 mg PO 1600 [facility] Last Admin: 10/19/16 17:14 Dose: Not Given Metoprolol Tartrate (Lopressor) 200 mg PO DAILY [facility] Last Admin: 10/19/16 09:16 Dose: 200 mg Mirtazapine (Remeron) 15 mg PO HS [facility] Last Admin: 10/19/16 22:01 Dose: 15 mg Multivitamins/Minerals (Therapeutic-M Tab) 1 tab PO DAILY [facility] Last Admin: 10/19/16 09:15 Dose: 1 tab Oxycodone/Acetaminophen (Percocet 5/325 Mg Tab) 1 tab PO Q8 PRN PRN Reason: Pain, severe (8-10) Stop: 10/21/16 09:01 Pantoprazole Sodium (Protonix Ec Tab) 40 mg PO DAILY [facility] Last Admin: 10/19/16 09:07 Dose: 40 mg Tizanidine HCl (Zanaflex) 1 mg PO Q12 PRN PRN Reason: SPASM Last Admin: 10/17/16 09:16 Dose: 1 mg Valsartan (Diovan) 320 mg PO DAILY [facility] Last Admin: 10/19/16 09:07 Dose: 320 mg - Labs Labs: 10/19/16 07:00 - Extremities Exam Additional comments: Right Lower Extremity: unchanged Left Lower Extremity: Ankle splint c/d/i, under care of podiatry team, left in place. Knee: + mild residual ttp at posterior lateral tibial plateau. -swelling/warmth/redness, FROM 0-130 + instability: 2-3+ anterior wire drawer neut/IR/ER, 2+ Luke w/ soft end point , 2+ pivot shift -reverse Luke/posterior draw/reverse pivot shift - posterior lateral corner instability/PLC drawer -opening to medial or lateral joint with varus or valgus stress at 0 or 30deg flexion ++ medial and lateral Charanjit + 5/5 motor strength Hip flex/ext, knee flex/ext, toes up & down sensory intact L2-S1, DPN/TN/SPN, 2+ DP Assessment and Plan (1) Effusion, left knee Assessment & Plan: 61 yo Male, s/p fall due to syncopy on 10/06/16 presented to the ER at [facility] with L knee / L ankle pain Dx= L knee: #1 non-displaced acute fracture of posterior lateral tibial plateau and fibular head #2 ACL tear #3 medial and lateral meniscal tears #4 partial tears of MCL and posterior lateral corner/ biceps long head (stable injuries) #5 underlying early DJD L ankle: #1 displaced trimal fracture #2 dislocation/subluxation s/p ORIF by podiatry on 10/10/16 L-spine: #1 Deg Disc Dz #2 s/p microdisc 3 weeks ago and laminectomy 5 years ago PLAN: L ankle: -under the care of the Podiatry team L knee: -clinically and confirmed on MRI, non-displaced fx's of tibial plateau and fibular head, MMT, LMT, ACL tear, partial tears of MCL/PLC with underlying early DJD -recommend knee immobilizer for now, difficult to immobilize with split post op on ipsilateral ankle -NWB LLE for at least 6 weeks to allow plateau fracture to heal, then progressive WB= TTWB with brace for 2 weeks, then PWB with brace for 2 weeks, then WBAt w/ 2 crutches then 1 crutch with brace at all times -once ankle can be advanced to short leg cast, podiatry team should try to make the cast short, up to mid millan to allow for custom ACL brace for knee -in the interim, use knee immobilizer -PT can remove to allow passive ROM of knee during sessions -patient instructed to remove knee immobilizer for brief moments of time while in bed and work on ROM/stretching -non-operative treatment for now, if he develops pain at the L knee, we will consider cortisone mixture injection -f/u as outpt in my office, [facility], [facility], -according to pt, ACL tear may be from a few years ago/chronic -MMT/LMT/non-displaced plateau & fibular head fractures are acute -will follow as needed during this admission -once a shorter short leg cast can be placed, then please have roll coverer measure and fit pt for custom ACL brace -repeat L knee x-rays at 2 weeks post-injury L-spine: -clinically stable -spine is not my speciality but I don't see any general ortho contraindications to lying supine during the L ankle ORIF by podiatry -if more detailed recommendations about the L-spine are needed, consider neurosurgery / spine surgery consult R ankle: -clinically, no weakness detected, this is a more subjective complaint of episodic weakness and ATFL instability / rolling of ankle -should be focus of care with PT as this will be his WB extremity post-op and as he recovers -consider AFO to give confidence or simple ankle brace for ambulation Thank you for allowing me to contribute to the care of your patient. Please contact me with any updates, questions, concerns, . Mukesh Gudino MD Orthopedic Surgery [phone] Status: Acute
--- NOTE | 2016-10-20 08:00 | PN ---
DATE: 10/20/2016 The patient seen and examined. Interim events noted. Consults noted, appreciated. and podiat ry followup and intervention noted and appreciated. The patient remains in transitional care unit. The patient feels okay. Pain is adequately controlled. No chest pain, no shortness of breath. PHYSICAL EXAMINATION: GENERAL: The patient is in no acute distress. VITAL SIGNS: Stable. HEART: S1, S2 normal, regular. LUNGS: Good bilateral air entry. ABDOMEN: Soft, nontender. EXTREMITIES: Right lower extremity is under surgical dressing. No sign of distal neurovascular comp romise. No edema, no calf swelling, no tenderness, no acute ischemia. CENTRAL NERVOUS SYSTEM: Essentially unchanged. DIAGNOSTIC DATA: Available reviewed. Overall, patient's general medical condition is stable. PLAN: As ordered. Kieran Dai MD cc: [id number] TT: 10/20/2016 07:59:07 Confirmation # [id number] Dictation # [id number]
[2016-10-20] MEDS: Multivitamin With Minerals Tab PO SCH (08:26)
[2016-10-20] MEDS: Pantoprazole 40 mg EC Tab PO SCH (08:26)
--- NOTE | 2016-10-20 10:10 | CP.PCM.PN ---
Subjective - Date & Time of Evaluation Date of Evaluation: 10/20/16 Time of Evaluation: 10:00 - Subjective Subjective: Generally feeling well HR 68 BPM, reg BP lying down 110/70 mm Hg Sitting up 98/60 mm Hg Pt remains asymptomatic while sitting up No signs of CHF Have reduced dose of Clonidine to 0.1 Mg Q12 h If pt continues to have orthostatic drop in BP will reduce Amlodipine (Clonidine can not be withdrawn abruptly) Objective - Vital Signs/Intake and Output Vital Signs (last 24 hours): Temp Pulse Resp BP Pulse Ox 97.5 F L 62 20 130/70 97 10/20/16 08:36 10/20/16 08:41 10/20/16 08:36 10/20/16 08:41 10/20/16 08:36 - Medications Medications: Current Medications Acetaminophen (Tylenol 325mg Tab) 650 mg PO Q6 PRN PRN Reason: Headache Last Admin: 10/13/16 10:59 Dose: 650 mg Al Hydrox/Mg Hydrox/Simethicone (Maalox Plus 30 Ml) 30 ml PO Q6 PRN PRN Reason: Indigestion / Heartburn Last Admin: 10/11/16 19:21 Dose: 30 ml Amlodipine Besylate (Norvasc) [address] [facility] Last Admin: 10/20/16 00:22 Dose: 10 mg Atorvastatin Calcium (Lipitor) [address] [facility] Last Admin: 10/20/16 08:25 Dose: 20 mg Bupropion HCl (Wellbutrin) 100 mg PO 0900,1600 [facility] Last Admin: 10/20/16 08:26 Dose: 100 mg Chlorthalidone (Hygroton) [address] [facility] Last Admin: 10/20/16 08:25 Dose: 25 mg Clonazepam (Klonopin) 1 mg PO 0000,0900,1600 [facility] Last Admin: 10/20/16 08:31 Dose: 1 mg Clonidine HCl (Catapres) 0.[address] [facility] Docusate Sodium (Colace) [address] [facility] Last Admin: 10/19/16 22:02 Dose: 300 mg Emollient Ointment (Vaseline Oint) 1 pkt TOP RQ6 PRN PRN Reason: Dry skin Last Admin: 10/12/16 21:18 Dose: 1 pkt Fluoxetine HCl (Prozac) [address] [facility] Last Admin: 10/19/16 17:13 Dose: 20 mg Fluoxetine HCl (Prozac) [address] [facility] Last Admin: 10/20/16 08:25 Dose: 40 mg Gabapentin (Neurontin) 800 mg PO 0000,0900,1600 [facility] Last Admin: 10/20/16 08:26 Dose: 800 mg Hydralazine HCl (Apresoline) [address] [facility] Last Admin: 10/20/16 00:21 Dose: 50 mg Hydralazine HCl (Apresoline) [address] [facility] Last Admin: 10/20/16 08:25 Dose: 100 mg Metoprolol Tartrate (Lopressor) [address] [facility] Last Admin: 10/19/16 17:14 Dose: Not Given Metoprolol Tartrate (Lopressor) [address] [facility] Last Admin: 10/20/16 08:26 Dose: 200 mg Mirtazapine (Remeron) [address] [facility] Last Admin: 10/19/16 22:01 Dose: 15 mg Multivitamins/Minerals (Therapeutic-M Tab) [address] [facility] Last Admin: 10/20/16 08:26 Dose: 1 tab Oxycodone/Acetaminophen (Percocet 5/325 Mg Tab) 1 tab PO Q8 PRN PRN Reason: Pain, severe (8-10) Stop: 10/21/16 09:01 Pantoprazole Sodium (Protonix Ec Tab) [address] [facility] Last Admin: 10/20/16 08:26 Dose: 40 mg Tizanidine HCl (Zanaflex) 1 mg PO Q12 PRN PRN Reason: SPASM Last Admin: 10/17/16 09:16 Dose: 1 mg Valsartan (Diovan) [address] [facility] Last Admin: 10/20/16 08:26 Dose: 320 mg - Labs Labs: 10/19/16 07:00
[2016-10-20] MEDS: Enoxaparin 40 mg Syringe SC SCH (16:52)
--- NOTE | 2016-10-21 06:24 | CP.PCM.PN ---
Objective - Vital Signs/Intake and Output Vital Signs (last 24 hours): Temp Pulse Resp BP Pulse Ox 98.4 F 64 20 113/64 98 10/20/16 21:25 10/21/16 00:14 10/20/16 21:25 10/21/16 00:14 10/20/16 21:25 - Medications Medications: Current Medications Acetaminophen (Tylenol 325mg Tab) 650 mg PO Q6 PRN PRN Reason: Headache Last Admin: 10/13/16 10:59 Dose: 650 mg Al Hydrox/Mg Hydrox/Simethicone (Maalox Plus 30 Ml) 30 ml PO Q6 PRN PRN Reason: Indigestion / Heartburn Last Admin: 10/11/16 19:21 Dose: 30 ml Amlodipine Besylate (Norvasc) 10 mg PO 0000 [facility] Last Admin: 10/21/16 00:14 Dose: 10 mg Atorvastatin Calcium (Lipitor) 20 mg PO DAILY [facility] Last Admin: 10/20/16 08:25 Dose: 20 mg Bupropion HCl (Wellbutrin) 100 mg PO 0900,1600 [facility] Last Admin: 10/20/16 16:52 Dose: 100 mg Chlorthalidone (Hygroton) 25 mg PO DAILY [facility] Last Admin: 10/20/16 08:25 Dose: 25 mg Clonazepam (Klonopin) 1 mg PO 0000,0900,1600 [facility] Last Admin: 10/21/16 00:12 Dose: 1 mg Clonidine HCl (Catapres) 0.1 mg PO Q12@0800,2000 [facility] Last Admin: 10/20/16 20:30 Dose: Not Given Docusate Sodium (Colace) 300 mg PO HS [facility] Last Admin: 10/20/16 21:41 Dose: 300 mg Emollient Ointment (Vaseline Oint) 1 pkt TOP RQ6 PRN PRN Reason: Dry skin Last Admin: 10/12/16 21:18 Dose: 1 pkt Enoxaparin Sodium (Lovenox) 40 mg SC DAILY [facility] PRN Reason: Protocol Last Admin: 10/20/16 16:52 Dose: 40 mg Fluoxetine HCl (Prozac) 20 mg PO 1600 [facility] Last Admin: 10/20/16 16:52 Dose: 20 mg Fluoxetine HCl (Prozac) 40 mg PO DAILY [facility] Last Admin: 10/20/16 08:25 Dose: 40 mg Gabapentin (Neurontin) 800 mg PO 0000,0900,1600 [facility] Last Admin: 10/21/16 00:13 Dose: 800 mg Hydralazine HCl (Apresoline) 50 mg PO 0000 [facility] Last Admin: 10/21/16 00:13 Dose: 50 mg Hydralazine HCl (Apresoline) 100 mg PO DAILY [facility] Last Admin: 10/20/16 08:25 Dose: 100 mg Metoprolol Tartrate (Lopressor) 100 mg PO 1600 [facility] Last Admin: 10/20/16 16:48 Dose: Not Given Metoprolol Tartrate (Lopressor) 200 mg PO DAILY [facility] Last Admin: 10/20/16 08:26 Dose: 200 mg Mirtazapine (Remeron) 15 mg PO HS [facility] Last Admin: 10/20/16 21:41 Dose: 15 mg Multivitamins/Minerals (Therapeutic-M Tab) 1 tab PO DAILY [facility] Last Admin: 10/20/16 08:26 Dose: 1 tab Oxycodone/Acetaminophen (Percocet 5/325 Mg Tab) 1 tab PO Q8 PRN PRN Reason: Pain, severe (8-10) Stop: 10/21/16 09:01 Pantoprazole Sodium (Protonix Ec Tab) 40 mg PO DAILY [facility] Last Admin: 10/20/16 08:26 Dose: 40 mg Tizanidine HCl (Zanaflex) 1 mg PO Q12 PRN PRN Reason: SPASM Last Admin: 10/17/16 09:16 Dose: 1 mg Valsartan (Diovan) 320 mg PO DAILY [facility] Last Admin: 10/20/16 08:26 Dose: 320 mg - Labs Labs: 10/19/16 07:00
[2016-10-21] MEDS: Multivitamin With Minerals Tab PO SCH (08:26)
[2016-10-21] MEDS: Pantoprazole 40 mg EC Tab PO SCH (08:26)
[2016-10-21] MEDS: Enoxaparin 40 mg Syringe SC SCH (08:28)
--- NOTE | 2016-10-21 08:45 | CP.PCM.PN ---
Subjective - Date & Time of Evaluation Date of Evaluation: 10/21/16 Time of Evaluation: 08:30 - Subjective Subjective: Fairly asymptomatic as far as dizziness on standing up is concerned Now BP lying down : 144/70 mm Hg Sitting up : 130/70 mm Hg HR 66 BPM, reg No signs of CHF Will keep on Clonidine 0.1 Mg BID and withold Amlodipine (a vasodilator) Objective - Vital Signs/Intake and Output Vital Signs (last 24 hours): Temp Pulse Resp BP Pulse Ox 97.9 F 65 20 131/71 99 10/21/16 07:55 10/21/16 08:27 10/21/16 07:55 10/21/16 08:27 10/21/16 07:55 - Medications Medications: Current Medications Acetaminophen (Tylenol 325mg Tab) 650 mg PO Q6 PRN PRN Reason: Headache Last Admin: 10/13/16 10:59 Dose: 650 mg Al Hydrox/Mg Hydrox/Simethicone (Maalox Plus 30 Ml) 30 ml PO Q6 PRN PRN Reason: Indigestion / Heartburn Last Admin: 10/11/16 19:21 Dose: 30 ml Amlodipine Besylate (Norvasc) 10 mg PO 0000 [facility] Last Admin: 10/21/16 00:14 Dose: 10 mg Atorvastatin Calcium (Lipitor) 20 mg PO DAILY [facility] Last Admin: 10/21/16 08:26 Dose: 20 mg Bupropion HCl (Wellbutrin) 100 mg PO 0900,1600 [facility] Last Admin: 10/21/16 08:25 Dose: 100 mg Chlorthalidone (Hygroton) 25 mg PO DAILY [facility] Last Admin: 10/21/16 08:27 Dose: 25 mg Clonazepam (Klonopin) 1 mg PO 0000,0900,1600 [facility] Last Admin: 10/21/16 08:34 Dose: 1 mg Clonidine HCl (Catapres) 0.1 mg PO Q12@0800,2000 [facility] Last Admin: 10/21/16 08:27 Dose: 0.1 mg Docusate Sodium (Colace) 300 mg PO HS [facility] Last Admin: 10/20/16 21:41 Dose: 300 mg Emollient Ointment (Vaseline Oint) 1 pkt TOP RQ6 PRN PRN Reason: Dry skin Last Admin: 10/12/16 21:18 Dose: 1 pkt Enoxaparin Sodium (Lovenox) 40 mg SC DAILY [facility] PRN Reason: Protocol Last Admin: 10/21/16 08:28 Dose: 40 mg Fluoxetine HCl (Prozac) 20 mg PO 1600 [facility] Last Admin: 10/20/16 16:52 Dose: 20 mg Fluoxetine HCl (Prozac) 40 mg PO DAILY [facility] Last Admin: 10/21/16 08:27 Dose: 40 mg Gabapentin (Neurontin) 800 mg PO 0000,0900,1600 [facility] Last Admin: 10/21/16 08:27 Dose: 800 mg Hydralazine HCl (Apresoline) 50 mg PO 0000 [facility] Last Admin: 10/21/16 00:13 Dose: 50 mg Hydralazine HCl (Apresoline) 100 mg PO DAILY [facility] Last Admin: 10/21/16 08:26 Dose: 100 mg Metoprolol Tartrate (Lopressor) 100 mg PO 1600 [facility] Last Admin: 10/20/16 16:48 Dose: Not Given Metoprolol Tartrate (Lopressor) 200 mg PO DAILY [facility] Last Admin: 10/21/16 08:26 Dose: 200 mg Mirtazapine (Remeron) 15 mg PO HS [facility] Last Admin: 10/20/16 21:41 Dose: 15 mg Multivitamins/Minerals (Therapeutic-M Tab) 1 tab PO DAILY [facility] Last Admin: 10/21/16 08:26 Dose: 1 tab Oxycodone/Acetaminophen (Percocet 5/325 Mg Tab) 1 tab PO Q8 PRN PRN Reason: Pain, severe (8-10) Stop: 10/21/16 09:01 Pantoprazole Sodium (Protonix Ec Tab) 40 mg PO DAILY [facility] Last Admin: 10/21/16 08:26 Dose: 40 mg Tizanidine HCl (Zanaflex) 1 mg PO Q12 PRN PRN Reason: SPASM Last Admin: 10/17/16 09:16 Dose: 1 mg Valsartan (Diovan) 320 mg PO DAILY [facility] Last Admin: 10/21/16 08:26 Dose: 320 mg - Labs Labs: 10/19/16 07:00
--- NOTE | 2016-10-21 08:53 | PN ---
DATE: 10/21/2016 The patient is seen and examined. Interim events noted. Consult noted and appreciated. Cardiology followup and intervention noted and appreciated. Case was discussed with magneto specialist. The patient feels okay. No specific complaint. No chest pain or shortness of breath. PHYSICAL EXAMINATION: GENERAL: The patient is in no acute distress. VITAL SIGNS: Stable. The patient did show some orthostatic changes, and clonidine dose was adjusted by magneto specialist. No dizziness, no loss of consciousness. Other than orthostatic ____ changes ____ are stable. HEART: S1, S2 normal, regular. LUNGS: Good bilateral air entry. ABDOMEN: Soft, nontender. EXTREMITIES: No edema, no calf swelling, no tenderness, no acute ischemia. CENTRAL NERVOUS SYSTEM: Essentially unchanged. EXTREMITIES: His left lower extremity is in a surgical dressing. No sign of distal neurovascular co mpromise. CENTRAL NERVOUS SYSTEM: Essentially unchanged. DIAGNOSTIC DATA: Available diagnostic data reviewed. Overall, the patient's general medical condition is stable. PLAN: As ordered. Kieran Dai MD cc: [id number] TT: 10/21/2016 08:52:56 Confirmation # [id number] Dictation # [id number] suleman
[2016-10-22] MEDS: Enoxaparin 40 mg Syringe SC SCH (08:13)
[2016-10-22] MEDS: Multivitamin With Minerals Tab PO SCH (08:16)
[2016-10-22] MEDS: Pantoprazole 40 mg EC Tab PO SCH (08:16)
--- NOTE | 2016-10-22 08:19 | PN ---
DATE: 10/22/2016 The patient seen and examined. Interim events noted. Consults noted, appreciated. Cardiology follo wup and intervention noted and appreciated. The patient remains in transitional care unit. The tab ent feels okay. No specific complaint, no chest pain, no shortness of breath. PHYSICAL EXAMINATION: GENERAL: The patient is in no acute distress. VITAL SIGNS: Stable. Blood pressure is systolic 101 with no orthostatic changes. HEART: S1, S2 normal, regular. LUNGS: Good bilateral air exchange. ABDOMEN: Soft, nontender. EXTREMITIES: No edema, no calf swelling, no tenderness, no acute ischemia. Left lower extremity is under podiatric dressing without any sign of distal complication. CENTRAL NERVOUS SYSTEM: Essentially unchanged. DIAGNOSTIC DATA: Available reviewed. Overall, patient's general medical condition is stable. The patient is for possible subacute rehabil itation. PLAN: As ordered. Kieran Dai MD cc: [id number] TT: 10/22/2016 08:18:54 Confirmation # [id number] Dictation # [id number] en
--- NOTE | 2016-10-22 08:43 | CP.PCM.PN ---
Subjective - Date & Time of Evaluation Date of Evaluation: 10/22/16 Time of Evaluation: 07:30 - Subjective Subjective: 61 y/o male seen at bedside 12 days s/p left ankle ORIF (DOS: 10/10/16) , with attending Dr. Dominguez present. Patient resting comfortably in TCU in NAD and AAOx3. Patient denies any acute events overnight. His leg is resting on multiple towels, dressing is clean,dry,intact. Patient states that the pain is well-controlled. Patient denies any n/v/f/c/d/sob. Pt has noted new bruising at level of left knee joint. Objective - Vital Signs/Intake and Output Vital Signs (last 24 hours): Temp Pulse Resp BP Pulse Ox 97.5 F L 71 20 128/76 99 10/22/16 08:21 10/22/16 08:21 10/22/16 08:21 10/22/16 08:21 10/22/16 08:21 - Medications Medications: Current Medications Acetaminophen (Tylenol 325mg Tab) 650 mg PO Q6 PRN PRN Reason: Headache Last Admin: 10/13/16 10:59 Dose: 650 mg Al Hydrox/Mg Hydrox/Simethicone (Maalox Plus 30 Ml) 30 ml PO Q6 PRN PRN Reason: Indigestion / Heartburn Last Admin: 10/11/16 19:21 Dose: 30 ml Atorvastatin Calcium (Lipitor) 20 mg PO DAILY [facility] Last Admin: 10/22/16 08:19 Dose: 20 mg Bupropion HCl (Wellbutrin) 100 mg PO 0900,1600 [facility] Last Admin: 10/22/16 08:15 Dose: 100 mg Chlorthalidone (Hygroton) 25 mg PO DAILY [facility] Last Admin: 10/22/16 08:14 Dose: 25 mg Clonazepam (Klonopin) 1 mg PO 0000,0900,1600 [facility] Last Admin: 10/22/16 08:21 Dose: 1 mg Clonidine HCl (Catapres) 0.1 mg PO Q12@0800,2000 [facility] Last Admin: 10/22/16 08:16 Dose: 0.1 mg Docusate Sodium (Colace) 300 mg PO HS [facility] Last Admin: 10/21/16 21:22 Dose: 300 mg Emollient Ointment (Vaseline Oint) 1 pkt TOP RQ6 PRN PRN Reason: Dry skin Last Admin: 10/12/16 21:18 Dose: 1 pkt Enoxaparin Sodium (Lovenox) 40 mg SC DAILY [facility] PRN Reason: Protocol Last Admin: 10/22/16 08:13 Dose: 40 mg Fluoxetine HCl (Prozac) 20 mg PO 1600 [facility] Last Admin: 10/21/16 16:41 Dose: 20 mg Fluoxetine HCl (Prozac) 40 mg PO DAILY [facility] Last Admin: 10/22/16 08:14 Dose: 40 mg Gabapentin (Neurontin) 800 mg PO 0000,0900,1600 [facility] Last Admin: 10/22/16 08:12 Dose: 800 mg Hydralazine HCl (Apresoline) 50 mg PO 0000 [facility] Last Admin: 10/22/16 00:37 Dose: Not Given Hydralazine HCl (Apresoline) 100 mg PO DAILY [facility] Last Admin: 10/22/16 08:20 Dose: 100 mg Metoprolol Tartrate (Lopressor) 100 mg PO 1600 [facility] Last Admin: 10/21/16 16:41 Dose: 100 mg Metoprolol Tartrate (Lopressor) 200 mg PO DAILY [facility] Last Admin: 10/22/16 08:13 Dose: 200 mg Mirtazapine (Remeron) 15 mg PO HS [facility] Last Admin: 10/21/16 21:22 Dose: 15 mg Multivitamins/Minerals (Therapeutic-M Tab) 1 tab PO DAILY [facility] Last Admin: 10/22/16 08:16 Dose: 1 tab Ondansetron HCl (Zofran Tab) 4 mg PO TID PRN PRN Reason: Nausea/Vomiting Last Admin: 10/21/16 10:07 Dose: 4 mg Pantoprazole Sodium (Protonix Ec Tab) 40 mg PO DAILY [facility] Last Admin: 10/22/16 08:16 Dose: 40 mg Tizanidine HCl (Zanaflex) 1 mg PO Q12 PRN PRN Reason: SPASM Last Admin: 10/17/16 09:16 Dose: 1 mg Valsartan (Diovan) 320 mg PO DAILY [facility] Last Admin: 10/22/16 08:15 Dose: 320 mg - Labs Labs: 10/19/16 07:00 - Constitutional Appears: Well, Non-toxic, No Acute Distress - Extremities Exam Additional comments: Left lower extremity focused. Left leg dressing and splint left c/d/i no calf pain or tenderness cft < 3 sec to all digits, able to wiggle toes. Thickened hallux toenails noted bilaterally Retro-genicular intense ecchymosis noted, longitudinal in distribution, non- tender to palpation. Medial calf-region patch of minor tender ecchymosis - Neurological Exam Neurological Exam: Alert, Awake, Oriented x3 - Psychiatric Exam Psychiatric exam: Normal Affect, Normal Mood Assessment and Plan - Assessment and Plan (Free Text) Assessment: 61 yo male patient POD#12 ORIF left ankle fracture (DOS: 10/10/16 Plan: -Pt S&E at bedside this AM, with attending Dr. Dominguez present. Chart,labs vitals reviewed: afebrile -Discussed with patient post-operative watt for next 3 weeks including schedule for outpatient follw-ups, likly timefram for potential early weightbearing, and ideal home ambulation assistive modality, (ie walker, crutches, wheel chair) -Pt to remain NWB to left lower extremity w/ knee immobilizer -continue PT. Discussed with physical therapist potential to graduate pt to axillary crutches, however their assessment reveals that the pt is largely unstable to the propulsion/ stability limb, (right leg) and graduating to axillary crutches increases the risk profile for potential fall tyupe injury. -F/U ortho rec's for left knee ACL rupture. -splint and dressing to LLE remains c/d/i, left intact, will change tomorrow morning, prior to transfer to [facility] facility . -continue post-op pain control. -continue elevating LLE -Stable per podiatry. Upon discharge pt to follow-up with Dr. Dominguez on outpatient basis between October 31 and November 05 for post-op check.
--- NOTE | 2016-10-22 08:57 | CP.PCM.PN ---
Subjective - Date & Time of Evaluation Date of Evaluation: 10/22/16 Time of Evaluation: 08:40 - Subjective Subjective: Has been able to stand up without light headed feeling BP Lying down : 138/ 70 mm Hg Standing up : 122 /66 mm Hg HR 66 BMP, reg No signs of CHF Pt off of Amlodipine and on Clonidine 0.1 mg Q12 H Pt instructed to avoid protracted horizontal posture/spend more time OOB Objective - Vital Signs/Intake and Output Vital Signs (last 24 hours): Temp Pulse Resp BP Pulse Ox 97.5 F L 71 20 128/76 99 10/22/16 08:21 10/22/16 08:21 10/22/16 08:21 10/22/16 08:21 10/22/16 08:21 - Medications Medications: Current Medications Acetaminophen (Tylenol 325mg Tab) 650 mg PO Q6 PRN PRN Reason: Headache Last Admin: 10/13/16 10:59 Dose: 650 mg Al Hydrox/Mg Hydrox/Simethicone (Maalox Plus 30 Ml) 30 ml PO Q6 PRN PRN Reason: Indigestion / Heartburn Last Admin: 10/11/16 19:21 Dose: 30 ml Atorvastatin Calcium (Lipitor) 20 mg PO DAILY [facility] Last Admin: 10/22/16 08:19 Dose: 20 mg Bupropion HCl (Wellbutrin) 100 mg PO 0900,1600 [facility] Last Admin: 10/22/16 08:15 Dose: 100 mg Chlorthalidone (Hygroton) 25 mg PO DAILY [facility] Last Admin: 10/22/16 08:14 Dose: 25 mg Clonazepam (Klonopin) 1 mg PO 0000,0900,1600 [facility] Last Admin: 10/22/16 08:21 Dose: 1 mg Clonidine HCl (Catapres) 0.1 mg PO Q12@0800,2000 [facility] Last Admin: 10/22/16 08:16 Dose: 0.1 mg Docusate Sodium (Colace) 300 mg PO HS [facility] Last Admin: 10/21/16 21:22 Dose: 300 mg Emollient Ointment (Vaseline Oint) 1 pkt TOP RQ6 PRN PRN Reason: Dry skin Last Admin: 10/12/16 21:18 Dose: 1 pkt Enoxaparin Sodium (Lovenox) 40 mg SC DAILY [facility] PRN Reason: Protocol Last Admin: 10/22/16 08:13 Dose: 40 mg Fluoxetine HCl (Prozac) 20 mg PO 1600 [facility] Last Admin: 10/21/16 16:41 Dose: 20 mg Fluoxetine HCl (Prozac) 40 mg PO DAILY [facility] Last Admin: 10/22/16 08:14 Dose: 40 mg Gabapentin (Neurontin) 800 mg PO 0000,0900,1600 [facility] Last Admin: 10/22/16 08:12 Dose: 800 mg Hydralazine HCl (Apresoline) 50 mg PO 0000 [facility] Last Admin: 10/22/16 00:37 Dose: Not Given Hydralazine HCl (Apresoline) 100 mg PO DAILY [facility] Last Admin: 10/22/16 08:20 Dose: 100 mg Metoprolol Tartrate (Lopressor) 100 mg PO 1600 [facility] Last Admin: 10/21/16 16:41 Dose: 100 mg Metoprolol Tartrate (Lopressor) 200 mg PO DAILY [facility] Last Admin: 10/22/16 08:13 Dose: 200 mg Mirtazapine (Remeron) 15 mg PO HS [facility] Last Admin: 10/21/16 21:22 Dose: 15 mg Multivitamins/Minerals (Therapeutic-M Tab) 1 tab PO DAILY [facility] Last Admin: 10/22/16 08:16 Dose: 1 tab Ondansetron HCl (Zofran Tab) 4 mg PO TID PRN PRN Reason: Nausea/Vomiting Last Admin: 10/21/16 10:07 Dose: 4 mg Pantoprazole Sodium (Protonix Ec Tab) 40 mg PO DAILY [facility] Last Admin: 10/22/16 08:16 Dose: 40 mg Tizanidine HCl (Zanaflex) 1 mg PO Q12 PRN PRN Reason: SPASM Last Admin: 10/17/16 09:16 Dose: 1 mg Valsartan (Diovan) 320 mg PO DAILY [facility] Last Admin: 10/22/16 08:15 Dose: 320 mg - Labs Labs: 10/19/16 07:00
--- NOTE | 2016-10-23 06:15 | CP.PCM.PN ---
Subjective - Date & Time of Evaluation Date of Evaluation: 10/23/16 Time of Evaluation: 09:20 - Subjective Subjective: 61 y/o male seen at bedside 13 days s/p left ankle ORIF (DOS: 10/10/16). Patient resting comfortably in TCU in NAD and AAOx3 after having completed physical therapy. Patient denies any acute events overnight. His leg is resting on multiple towels, dressing is clean, dry, and intact. Patient states that the pain is well-controlled. Patient denies any n/v/f/c/d/sob. Objective - Vital Signs/Intake and Output Vital Signs (last 24 hours): Temp Pulse Resp BP Pulse Ox 98.2 F 62 20 122/78 97 10/22/16 20:47 10/22/16 23:17 10/22/16 20:47 10/22/16 23:17 10/22/16 20:47 - Medications Medications: Current Medications Acetaminophen (Tylenol 325mg Tab) 650 mg PO Q6 PRN PRN Reason: Headache Last Admin: 10/13/16 10:59 Dose: 650 mg Al Hydrox/Mg Hydrox/Simethicone (Maalox Plus 30 Ml) 30 ml PO Q6 PRN PRN Reason: Indigestion / Heartburn Last Admin: 10/11/16 19:21 Dose: 30 ml Atorvastatin Calcium (Lipitor) 20 mg PO DAILY [facility] Last Admin: 10/22/16 08:19 Dose: 20 mg Bupropion HCl (Wellbutrin) 100 mg PO 0900,1600 [facility] Last Admin: 10/22/16 16:35 Dose: 100 mg Chlorthalidone (Hygroton) 25 mg PO DAILY [facility] Last Admin: 10/22/16 08:14 Dose: 25 mg Clonazepam (Klonopin) 1 mg PO 0000,0900,1600 [facility] Last Admin: 10/22/16 23:17 Dose: 1 mg Clonidine HCl (Catapres) 0.1 mg PO Q12@0800,2000 [facility] Last Admin: 10/22/16 20:59 Dose: 0.1 mg Docusate Sodium (Colace) 300 mg PO HS [facility] Last Admin: 10/22/16 21:00 Dose: 300 mg Emollient Ointment (Vaseline Oint) 1 pkt TOP RQ6 PRN PRN Reason: Dry skin Last Admin: 10/12/16 21:18 Dose: 1 pkt Enoxaparin Sodium (Lovenox) 40 mg SC DAILY [facility] PRN Reason: Protocol Last Admin: 10/22/16 08:13 Dose: 40 mg Fluoxetine HCl (Prozac) 20 mg PO 1600 [facility] Last Admin: 10/22/16 16:35 Dose: 20 mg Fluoxetine HCl (Prozac) 40 mg PO DAILY [facility] Last Admin: 10/22/16 08:14 Dose: 40 mg Gabapentin (Neurontin) 800 mg PO 0000,0900,1600 [facility] Last Admin: 10/22/16 23:17 Dose: 800 mg Hydralazine HCl (Apresoline) 50 mg PO 0000 [facility] Last Admin: 10/22/16 23:17 Dose: 50 mg Hydralazine HCl (Apresoline) 100 mg PO DAILY [facility] Last Admin: 10/22/16 08:20 Dose: 100 mg Metoprolol Tartrate (Lopressor) 100 mg PO 1600 [facility] Last Admin: 10/22/16 16:33 Dose: 100 mg Metoprolol Tartrate (Lopressor) 200 mg PO DAILY [facility] Last Admin: 10/22/16 08:13 Dose: 200 mg Mirtazapine (Remeron) 15 mg PO HS [facility] Last Admin: 10/22/16 21:01 Dose: 15 mg Multivitamins/Minerals (Therapeutic-M Tab) 1 tab PO DAILY [facility] Last Admin: 10/22/16 08:16 Dose: 1 tab Ondansetron HCl (Zofran Tab) 4 mg PO TID PRN PRN Reason: Nausea/Vomiting Last Admin: 10/21/16 10:07 Dose: 4 mg Pantoprazole Sodium (Protonix Ec Tab) 40 mg PO DAILY [facility] Last Admin: 10/22/16 08:16 Dose: 40 mg Tizanidine HCl (Zanaflex) 1 mg PO Q12 PRN PRN Reason: SPASM Last Admin: 10/17/16 09:16 Dose: 1 mg Valsartan (Diovan) 320 mg PO DAILY [facility] Last Admin: 10/22/16 08:15 Dose: 320 mg - Labs Labs: 10/19/16 07:00 - Constitutional Appears: Well, Non-toxic, No Acute Distress - Extremities Exam Additional comments: Left lower extremity focused. DERM: Incision sites are well coapted with no signs of dehiscence. All sutres are intact bilaterally. Medial retro-incision hematougenous bulla noted pre- operatively, has ruptures, and base has undergone early stage re- epitheliaization, site shows no acute signs of infection. Plantar left 3rd digit hyperkeratotic tissue noted. Mild light hued ecchymosis noted at level of ankle joint to anteror surface. No calf pain or tenderness cft < 3 sec to all digits, able to wiggle toes. Thickened hallux toenails noted bilaterally Retro-genicular intense ecchymosis noted, longitudinal in distribution, non- tender to palpation. Medial calf-region patch of minor tender ecchymosis - Neurological Exam Neurological Exam: Alert, Awake, Oriented x3 - Psychiatric Exam Psychiatric exam: Normal Affect, Normal Mood Assessment and Plan - Assessment and Plan (Free Text) Assessment: 61 yo male patient POD#13 ORIF left ankle fracture (DOS: 10/10/16) Plan: Pt S&E at bedside this AM. Chart,labs vitals reviewed: afebrile -F/U ortho rec's for left knee ACL rupture. - Removed and D/C'ed use of posterior splint, applied fiberglass below knee cast to left lower leg. . -continue post-op pain control. -continue elevating LLE - Continue physical therapy. -Stable per podiatry. Upon discharge pt to follow-up with Dr. Dominguez on outpatient basis between October 31 and November 05 for post-op check.
--- NOTE | 2016-10-23 08:32 | CP.PCM.PN ---
Subjective - Date & Time of Evaluation Date of Evaluation: 10/23/16 Time of Evaluation: 08:25 - Subjective Subjective: Very anxious about going to [facility] BP laying down 138/80 mm Hg Standing up 130/76 mm Hg HR 66 BPM No signs of CHF May be sent to [facility] on present Rx Objective - Vital Signs/Intake and Output Vital Signs (last 24 hours): Temp Pulse Resp BP Pulse Ox 97.8 F 60 20 121/67 99 10/23/16 07:52 10/23/16 07:52 10/23/16 07:52 10/23/16 07:52 10/23/16 07:52 - Medications Medications: Current Medications Acetaminophen (Tylenol 325mg Tab) 650 mg PO Q6 PRN PRN Reason: Headache Last Admin: 10/13/16 10:59 Dose: 650 mg Al Hydrox/Mg Hydrox/Simethicone (Maalox Plus 30 Ml) 30 ml PO Q6 PRN PRN Reason: Indigestion / Heartburn Last Admin: 10/11/16 19:21 Dose: 30 ml Atorvastatin Calcium (Lipitor) 20 mg PO DAILY [facility] Last Admin: 10/22/16 08:19 Dose: 20 mg Bupropion HCl (Wellbutrin) 100 mg PO 0900,1600 [facility] Last Admin: 10/22/16 16:35 Dose: 100 mg Chlorthalidone (Hygroton) 25 mg PO DAILY [facility] Last Admin: 10/22/16 08:14 Dose: 25 mg Clonazepam (Klonopin) 1 mg PO 0000,0900,1600 [facility] Last Admin: 10/22/16 23:17 Dose: 1 mg Clonidine HCl (Catapres) 0.1 mg PO Q12@0800,2000 [facility] Last Admin: 10/22/16 20:59 Dose: 0.1 mg Docusate Sodium (Colace) 300 mg PO HS [facility] Last Admin: 10/22/16 21:00 Dose: 300 mg Emollient Ointment (Vaseline Oint) 1 pkt TOP RQ6 PRN PRN Reason: Dry skin Last Admin: 10/12/16 21:18 Dose: 1 pkt Enoxaparin Sodium (Lovenox) 40 mg SC DAILY [facility] PRN Reason: Protocol Last Admin: 10/22/16 08:13 Dose: 40 mg Fluoxetine HCl (Prozac) 20 mg PO 1600 [facility] Last Admin: 10/22/16 16:35 Dose: 20 mg Fluoxetine HCl (Prozac) 40 mg PO DAILY [facility] Last Admin: 10/22/16 08:14 Dose: 40 mg Gabapentin (Neurontin) 800 mg PO 0000,0900,1600 [facility] Last Admin: 10/22/16 23:17 Dose: 800 mg Hydralazine HCl (Apresoline) 50 mg PO 0000 [facility] Last Admin: 10/22/16 23:17 Dose: 50 mg Hydralazine HCl (Apresoline) 100 mg PO DAILY [facility] Last Admin: 10/22/16 08:20 Dose: 100 mg Metoprolol Tartrate (Lopressor) 100 mg PO 1600 [facility] Last Admin: 10/22/16 16:33 Dose: 100 mg Metoprolol Tartrate (Lopressor) 200 mg PO DAILY [facility] Last Admin: 10/22/16 08:13 Dose: 200 mg Mirtazapine (Remeron) 15 mg PO HS [facility] Last Admin: 10/22/16 21:01 Dose: 15 mg Multivitamins/Minerals (Therapeutic-M Tab) 1 tab PO DAILY [facility] Last Admin: 10/22/16 08:16 Dose: 1 tab Ondansetron HCl (Zofran Tab) 4 mg PO TID PRN PRN Reason: Nausea/Vomiting Last Admin: 10/21/16 10:07 Dose: 4 mg Pantoprazole Sodium (Protonix Ec Tab) 40 mg PO DAILY [facility] Last Admin: 10/22/16 08:16 Dose: 40 mg Tizanidine HCl (Zanaflex) 1 mg PO Q12 PRN PRN Reason: SPASM Last Admin: 10/17/16 09:16 Dose: 1 mg Valsartan (Diovan) 320 mg PO DAILY [facility] Last Admin: 10/22/16 08:15 Dose: 320 mg - Labs Labs: 10/19/16 07:00
[2016-10-23] MEDS: Pantoprazole 40 mg EC Tab PO SCH (08:35)
[2016-10-23] MEDS: Multivitamin With Minerals Tab PO SCH (08:35)
[2016-10-23] MEDS: Enoxaparin 40 mg Syringe SC SCH (08:41)
[2016-10-24 07:55] VITALS: TEMP 97.9; O2SAT 100
--- NOTE | 2016-10-24 08:14 | PN ---
DATE: 10/23/2016 The patient was seen and examined. Interim events noted. Cardiology followup and intervention noted and appreciated. The patient remains in transitional care unit. Feels okay. No chest pain, no rony rtness of breath. Leg pain is adequately controlled. PHYSICAL EXAMINATION: GENERAL: The patient is in no acute distress. VITAL SIGNS: Stable. HEART: S1, S2 normal, regular. LUNGS: Good bilateral air exchange. ABDOMEN: Soft, nontender. EXTREMITIES: Under podiatric dressing. No sign of distal complications. CENTRAL NERVOUS SYSTEM: Essentially unchanged. DIAGNOSTIC DATA: Available reviewed. Overall, patient's general medical condition is stable. PLAN: As ordered. Kieran Dai MD cc: [id number] TT: 10/24/2016 08:14:16 Confirmation # [id number] Dictation # [id number] en
--- NOTE | 2016-10-24 08:23 | PN ---
DATE: 10/24/2016 The patient seen and examined. Interim events noted. Consults noted and appreciated. Cardiology fo llowup and intervention noted and appreciated. The patient remains in transitional care unit for pos sible discharge today. Podiatry followup and intervention noted and appreciated. The patient feels okay. Pain is adequately controlled. No chest pain or shortness of breath. PHYSICAL EXAMINATION: GENERAL: The patient is in no acute distress. VITAL SIGNS: Stable. HEART: S1, S2 normal, regular. LUNGS: Good bilateral air exchange. ABDOMEN: Soft, nontender. EXTREMITIES: No calf swelling, no tenderness, no acute ischemia. CENTRAL NERVOUS SYSTEM: Essentially unchanged. Cast was changed yesterday for a fiberglass case. Overall, the patient is medically stable for [facility]. Case and plan discussed with patient. Kieran Dai MD cc: [id number] TT: 10/24/2016 08:23:03 Confirmation # [id number] Dictation # [id number] rafaela
[2016-10-24] MEDS: Multivitamin With Minerals Tab PO SCH (09:03)
[2016-10-24] MEDS: Pantoprazole 40 mg EC Tab PO SCH (09:03)
[2016-10-24] MEDS: Enoxaparin 40 mg Syringe SC SCH (09:05)
[2016-10-24 09:06] VITALS: BP 140/69; PULSE 67
== END 2016-10-24 14:45 | DRG 561 ==
LOC: H.TCU 17:09
PROVIDERS: ADMIT Internal Medicine; ATTEND Internal Medicine
PROC: F08Z4FZ Home Management Treatment using Assistive, Adaptive, Supportive or Protective Equipment (ICD-10-PCS; principal; 2016-10-15)
PROC: F07L6ZZ Therapeutic Exercise Treatment of Musculoskeletal System - Lower Back / Lower Extremity (ICD-10-PCS; 2016-10-15)
DX: S82.852D Displaced trimalleolar fracture of left lower leg, subsequent encounter for closed fracture with routine healing (principal); I10 Essential (primary) hypertension; W19.XXXD Unspecified fall, subsequent encounter; S83.512D Sprain of anterior cruciate ligament of left knee, subsequent encounter; M19.90 Unspecified osteoarthritis, unspecified site; E78.00 Pure hypercholesterolemia, unspecified; M71.20 Synovial cyst of popliteal space [Baker], unspecified knee; F32.89 Other specified depressive episodes; F41.9 Anxiety disorder, unspecified; K59.00 Constipation, unspecified; Z95.2 Presence of prosthetic heart valve; I35.1 Nonrheumatic aortic (valve) insufficiency

== ENCOUNTER 2017-06-03 14:04 | Emergency (ER) | payer MEDICARE, BC, OTHER ==
[2017-06-03 14:04] VITALS: BMI 30.8
[2017-06-03 14:12] VITALS: BP 131/74; PULSE 73; RESP 16; TEMP 100.6; O2SAT 98
[2017-06-03] MEDS ORDERED: Sodium Chloride 0.9% 1,000 ML IV STA (14:57)
--- NOTE | 2017-06-03 14:59 | ED PDOC ---
HPI: Abdomen Time Seen by Provider: 06/03/17 14:24 Chief Complaint (Nursing): GI Problem Chief Complaint (Provider): GI problem History Per: Patient History/Exam Limitations: no limitations Onset/Duration Of Symptoms: Days (x1) Outside of [place] travel?: No Current Symptoms Are (Timing): Still Present Severity: Mild Pain Scale Rating Of: 3 Associated Symptoms: Nausea, Vomiting (x2). denies: Fever Additional Complaint(s): Lalito Cifuentes is a 61 year old male, with a past medical history of heart valve replacement and laminectomy, who was brought to the emergency department by EMS for abdominal discomfort associated with nausea, vomiting, and diarrhea onset since last night. Patient reports vomiting last night and this morning, but states he feels hungry. He is currently taking aspirin. He denies any fevers or other medical complaints. PMD: Marbin Amos Past Medical History Reviewed: Historical Data, Nursing Documentation, Vital Signs Vital Signs: Last Vital Signs Temp 100.6 F H 06/03/17 14:07 Pulse 73 06/03/17 14:07 Resp 16 06/03/17 14:07 BP 131/74 06/03/17 14:07 Pulse Ox 98 06/04/17 14:43 - Medical History PMH: Anxiety, Back Problems, Depression, HTN, Hypercholesterolemia Denies: HIV, Chronic Kidney Disease - Surgical History Surgical History: Back Surgery Other surgeries: Heart valve replacement, laminectomy - Family History Family History: States: Unknown Family Hx - Social History Ex-Smoker (has not smoked in the last 12 months): Yes Alcohol: None Drugs: Denies - Home Medications Home Medications: Ambulatory Orders Medication Instructions Recorded Atorvastatin [Lipitor] 20 mg PO DAILY tab 10/11/16 Chlorthalidone [Hygroton] 25 mg PO DAILY tab 10/11/16 Enoxaparin [Lovenox] 40 mg SC DAILY syr 10/11/16 FLUoxetine [Prozac] 20 mg PO 1600 cap 10/11/16 Metoprolol Tartrate [Lopressor] 100 mg PO 1600 tab 10/11/16 Mirtazapine [Remeron] 15 mg PO HS tab 10/11/16 Multimineral/Multivitamin 1 tab PO DAILY tab 10/11/16 [Therapeutic-M Tab] Pantoprazole [Protonix EC Tab] 40 mg PO DAILY ect 10/11/16 Valsartan [Diovan] 320 mg PO DAILY tab 10/11/16 amLODIPine [Norvasc] 10 mg PO 0000 tab 10/11/16 buPROPion SR [Wellbutrin] 100 mg PO 0900,1600 t12 10/11/16 cloNIDine [Catapres] 0.1 mg PO 0000,1600 tab 10/11/16 clonazePAM [Klonopin] 1 mg PO 0000,0900,1600 tab 10/11/16 oxyCODONE/Acetaminophen [Percocet 1 ea PO Q4 PRN #30 tab 10/11/16 5/325 mg Tab] tiZANidine [Zanaflex] 1 mg PO Q12 PRN tab 10/11/16 Aluminum Hydroxide/Magnesium 30 ml PO Q6 PRN 10/24/16 [Maalox Plus 30 ml] Chlorthalidone [Hygroton] 25 mg PO DAILY tab 10/24/16 Docusate [Colace] 300 mg PO HS cap 10/24/16 FLUoxetine [Prozac] 40 mg PO DAILY cap 10/24/16 Gabapentin [Neurontin] 800 mg PO 0000,0900,1600 cap 10/24/16 Metoprolol Tartrate [Lopressor] 200 mg PO DAILY tab 10/24/16 Multimineral/Multivitamin 1 tab PO DAILY tab 10/24/16 [Therapeutic-M Tab] Ondansetron [Zofran Tab] 4 mg PO TID PRN tab 10/24/16 Petrolatum [Vaseline Oint] 1 pkt TOP RQ6 PRN 10/24/16 cloNIDine [Catapres] 0.1 mg PO Q12@0800,2000 tab 10/24/16 hydrALAZINE [Apresoline] 50 mg PO 0000 tab 10/24/16 hydrALAZINE [Apresoline] 100 mg PO DAILY tab 10/24/16 Ondansetron [Zofran] 4 mg PO Q6H PRN #5 tab 06/03/17 - Allergies Allergies/Adverse Reactions: Allergies Allergy/AdvReac Type Severity Reaction Status Date / Time No Known Allergies Allergy Verified 06/03/17 14:07 Review of Systems ROS Statement: Except As Marked, All Systems Reviewed And Found Negative Constitutional: Negative for: Fever Gastrointestinal: Positive for: Nausea, Vomiting (x2), Abdominal Pain ( discomfort), Diarrhea Physical Exam - Reviewed Nursing Documentation Reviewed: Yes Vital Signs Reviewed: Yes - Physical Exam Appears: Positive for: Non-toxic, No Acute Distress Head Exam: Positive for: ATRAUMATIC, NORMAL INSPECTION Skin: Positive for: Normal Color, Warm, Dry Neck: Positive for: Normal, Painless ROM, Supple Cardiovascular/Chest: Positive for: Regular Rate, Rhythm. Negative for: Murmur Respiratory: Positive for: Normal Breath Sounds. Negative for: Respiratory Distress Gastrointestinal/Abdominal: Positive for: Normal Exam, Bowel Sounds, Soft. Negative for: Tenderness, Guarding, Rebound Back: Positive for: Normal Inspection. Negative for: L CVA Tenderness, R CVA Tenderness Extremity: Positive for: Normal ROM. Negative for: Pedal Edema, Deformity, Swelling Neurologic/Psych: Positive for: Alert, Oriented - Laboratory Results Result Diagrams: 06/03/17 15:31 06/03/17 15:31 - ECG O2 Sat by Pulse Oximetry: 98 (RA) Pulse Ox Interpretation: Normal Medical Decision Making Medical Decision Making: Initial Impression: abdominal pain abdominal exam benign. Initial Plan: --Comp Metabolic Panel --CBC w/ differential --Pepcid 20 mg IVP --NS IV 1,000 ml @ 999mls/hr --Zofran inj 4 mg IV --Urine culture --Urinalysis --reevaluation 16:30 --Patient tolerated PO and reports feeling better. abdomen reexamined, normal. Scribe Attestation: Documented by Esteban Alcantara, acting as a scribe for Erik Madrigal MD Provider Scribe Attestation: All medical record entries made by the Scribe were at my direction and personally dictated by me. I have reviewed the chart and agree that the record accurately reflects my personal performance of the history, physical exam, medical decision making, and the department course for this patient. I have also personally directed, reviewed, and agree with the discharge instructions and disposition. Disposition - Clinical Impression Clinical Impression: Gastroenteritis - Disposition Referrals: [facility] [Outside] [facility] [Outside] Condition: IMPROVED Additional Instructions: follow up with your primary doctor in 1-2 days return to the ED with any worsening or concerning symptoms Prescriptions: Ondansetron [Zofran] 4 mg PO Q6H PRN #5 tab PRN Reason: Nausea/Vomiting Instructions: Hypokalemia (ED) Forms: [employer] ([place])
[2017-06-03 15:37] LABS: BASO % 0.3 % (0.0-2.0); EOS % 0.3 % (0.0-4.0); HEMATOCRIT 42.1 % (35.0-51.0); LYMPH # 0.5 K/uL (1.0-4.3); LYMPH % 4.5 % (20.0-40.0); MEAN CELL VOLUME 87.1 fl (80.0-94.0); MEAN CORPUSCULAR HEMOGLOBIN 28.9 pg (27.0-31.0); MEAN CORPUSCULAR HGB CONC 33.1 g/dL (33.0-37.0); MEAN PLATELET VOLUME 9.3 fl (7.2-11.7); MONO # 0.5 K/uL (0.0-0.8); NEUT # 9.7 K/uL (1.8-7.0); NEUT % 89.9 % (50.0-75.0); PLATELET COUNT 138 K/uL (130-400); RED CELL DISTRIBUTION WIDTH 13.9 % (11.5-14.5); WHITE BLOOD COUNT 10.8 K/uL (4.8-10.8)
[2017-06-03 15:47] LABS: ALB/GLOB RATIO 1.2 (1.0-2.1); ALKALINE PHOSPHATASE 71 U/L (38-126); ALT/SGPT 46 U/L (21-72); AST/SGOT 38 U/L (17-59); BILIRUBIN,TOTAL 0.9 mg/dl (0.2-1.3); BLOOD UREA NITROGEN 19 mg/dl (9-20); CALCIUM 8.7 mg/dL (8.4-10.2); CARBON DIOXIDE 25 mmol/L (22-30); CHLORIDE 103 mmol/L (98-107); GFR AFRICAN-AMERICAN > 60; GLUCOSE,RANDOM 99 mg/dL (75-110); SODIUM 138 mmol/l (132-148)
[2017-06-03 16:00] LABS: RBC URINE 1 /hpf (0-3); URINE BILIRUBIN NEGATIVE (NEGATIVE); URINE BLOOD NEGATIVE (NEGATIVE); URINE COLOR YELLOW (YELLOW); URINE GLUCOSE (UA) NEG (Normal); URINE KETONE NEGATIVE (NEGATIVE); URINE LEUKOCYTE ESTERASE NEG Leu/uL (Negative); URINE PROTEIN NEGATIVE (NEGATIVE); URINE UROBILINOGEN 0.2-1.0 mg/dL (0.2-1.0); WBC URINE < 1 /hpf (0-5)
[2017-06-03] MEDS ORDERED: Potassium Chloride 20 mEq ER Tab PO ONE ×2 (16:04→16:29)
[2017-06-03 16:57] LABS: EOSINOPHIL 1 % (0-7); NEUTROPHIL 84 % (42-75); TOTAL CELLS COUNTED 100
== END 2017-06-03 17:57 | disposition home or self-care (01) ==
LOC: H.ER 14:04
DX: K52.9 Noninfective gastroenteritis and colitis, unspecified (principal); E87.6 Hypokalemia; E78.00 Pure hypercholesterolemia, unspecified; F32.9 Major depressive disorder, single episode, unspecified; F41.9 Anxiety disorder, unspecified; I10 Essential (primary) hypertension; Z87.891 Personal history of nicotine dependence; Z95.2 Presence of prosthetic heart valve
CPT/HCPCS: 80053; 81003; 85025; 87086; 96374; 99283; J2405; J7040